=== PATIENT | female | born 1980 | race American Indian/Alaskan Native ===

== ENCOUNTER 2019-09-23 22:01 | Emergency (ER) | payer MEDICAID ==
--- NOTE | 2019-09-23 22:51 | EDM.PDOCBH ---
ED HPI GENERAL MEDICAL PROBLEM - General Chief Complaint: Drug or Alcohol Abuse Stated Complaint: MEDICAL Time Seen by Provider: 09/23/19 22:15 Source of Information: Reports: Patient History Limitations: Reports: Intoxication - History of Present Illness INITIAL COMMENTS - FREE TEXT/NARRATIVE: This is a 39-year-old with history of alcohol abuse disorder presents requesting treatment for her alcohol use disorder. She reports that she drinks approximately 1 L of alcohol a day. Her last drink was 1 to 2 hours before ED arrival. She is questioning whether she needs to be admitted because alcohol withdrawal is life-threatening. She is not interested in going to detox. She also reports occasional opioid use. She denies any illicit drug use otherwise. She denies any suicidal ideation. She has been in treatment before for drug and alcohol abuse. She has no acute medical concerns. - Related Data Allergies Allergy/AdvReac Type Severity Reaction Status Date / Time iron Allergy Cannot Verified 09/23/19 22:31 Remember ED ROS GENERAL - Review of Systems Review Of Systems: See Below Constitutional: Reports: No Symptoms HEENT: Reports: No Symptoms Respiratory: Reports: No Symptoms Cardiovascular: Reports: No Symptoms Endocrine: Reports: No Symptoms GI/Abdominal: Reports: No Symptoms : Reports: No Symptoms Musculoskeletal: Reports: No Symptoms Skin: Reports: No Symptoms Neurological: Reports: No Symptoms Psychiatric: Denies: Suicidal Ideation Hematologic/Lymphatic: Reports: No Symptoms Immunologic: Reports: No Symptoms ED EXAM, BEHAVIORAL HEALTH - Physical Exam Exam: See Below Exam Limited By: Intoxication General Appearance: Alert, No Apparent Distress Ears: Normal External Exam Nose: Normal Inspection Throat/Mouth: Normal Inspection Head: Atraumatic Neck: Normal Inspection Respiratory/Chest: No Respiratory Distress Cardiovascular: Regular Rate, Rhythm GI/Abdominal: No Distention Back Exam: Normal Inspection Extremities: Normal Inspection Neurological: Alert, Oriented x 3 Psychiatric: Alert Skin Exam: Warm, Dry COURSE, BEHAVIORAL HEALTH COMP - Course Discharge vs Psych Eval/Treatment:: 39-year-old who presents with concerns of alcohol intoxication. She is concerned she may go into life-threatening withdrawal. On exam she has normal vitals. She endorses alcohol use and clinically does appear mildly intoxicated. She has no signs of alcohol withdrawal. We offered to attempt to facilitate treatment at [facility] detox facility. Unfortunately the patient became verbally upset with this plan of treatment, she does not like the idea of being in a treatment facility, and left AMA prior to any attempt at formulating an alternate plan. 09/23/19 22:51 Departure - Departure Time of Disposition: 22:52 Disposition: Against Medical Advice 07 Clinical Impression: Alcohol abuse - Discharge Information Referrals: PCP,None [Primary Care Provider] -
== END 2019-09-23 22:40 | disposition left against medical advice (07) ==
LOC: JP.ED 22:01
DX: F10.10 Alcohol abuse, uncomplicated (principal); Z91.09 Other allergy status, other than to drugs and biological substances
CPT/HCPCS: 99284

== ENCOUNTER 2019-09-24 12:13 | Emergency (ER) | payer MEDICAID ==
[2019-09-24] MEDS ORDERED: LORazepam 2 MG/ML SDV IM ONE (13:08)
--- NOTE | 2019-09-24 13:11 | EDM.PDOCBH ---
ED HPI GENERAL MEDICAL PROBLEM - General Chief Complaint: Drug or Alcohol Abuse Stated Complaint: EVAL Time Seen by Provider: 09/24/19 13:09 Source of Information: Reports: Patient, RN Notes Reviewed History Limitations: Reports: Intoxication - History of Present Illness INITIAL COMMENTS - FREE TEXT/NARRATIVE: 39-year-old female presents emergency department today alcohol intoxication requesting clearance for detox, denies any suicidal ideation or hallucinations, is emotionally upset due to trauma in the past - Related Data Allergies Allergy/AdvReac Type Severity Reaction Status Date / Time iron Allergy Cannot Verified 09/24/19 12:43 Remember Home Meds: Home Meds Amphetamine/Dextroamphetamine [Adderall] 5 - 10 mg PO BID 09/23/19 [History] Cyclobenzaprine [Flexeril] 10 mg PO BEDTIME 09/23/19 [History] Gabapentin [Neurontin] 400 mg PO TID 09/23/19 [History] Naltrexone 50 mg PO DAILY 09/23/19 [History] SUMAtriptan 100 mg PO ASDIRECTED PRN 09/23/19 [History] Sertraline HCl 100 mg PO DAILY 09/23/19 [History] Spironolactone [Aldactone] 100 mg PO DAILY 09/23/19 [History] buPROPion [Wellbutrin SR] 150 mg PO DAILY 09/23/19 [History] hydrOXYzine HCL [Hydroxyzine HCl] 10 mg PO ASDIRECTED PRN 09/23/19 [History] traZODone 200 mg PO BEDTIME 09/23/19 [History] Past Medical History HEENT History: Reports: Allergic Rhinitis Cardiovascular History: Reports: Other (See Below) Other Cardiovascular History: POTS Respiratory History: Reports: Asthma Gastrointestinal History: Reports: Celiac Disease, GERD Genitourinary History: Reports: UTI, Recurrent OFFICE COORDINATOR History: Reports: Other (See Below) Other OFFICE COORDINATOR History: abnormal pap but never followed up on it Musculoskeletal History: Reports: Back Pain, Chronic Neurological History: Reports: Migraines, Other (See Below) Other Neuro History: insomnia Psychiatric History: Reports: ADHD, Addiction, Anxiety, Depression, Eating Disorders, PTSD, Other (See Below) Other Psychiatric History: personality disorder Endocrine/Metabolic History: Reports: Hyperthyroidism Hematologic History: Reports: Anemia Dermatologic History: Reports: Other (See Below) Other Dermatologic History: acne - Infectious Disease History Infectious Disease History: Reports: Chicken Pox, MRSA - Past Surgical History Respiratory Surgical History: Reports: None GI Surgical History: Reports: Cholecystectomy Social & Family History - Tobacco Use Smoking Status *Q: Former Smoker Used Tobacco, but Quit: Yes Month/Year Tobacco Last Used: 09/2019 - Caffeine Use Caffeine Use: Reports: Coffee Other Caffeine Use: 12 cups per day - Alcohol Use Days Per Week of Alcohol Use: 7 Number of Drinks Per Day: 10 Total Drinks Per Week: 70 - Recreational Drug Use Recreational Drug Use: No ED ROS GENERAL - Review of Systems Review Of Systems: See Below Constitutional: Reports: No Symptoms HEENT: Reports: No Symptoms Respiratory: Reports: No Symptoms Cardiovascular: Reports: No Symptoms GI/Abdominal: Reports: No Symptoms : Reports: No Symptoms Neurological: Reports: No Symptoms Psychiatric: Reports: Anxiety. Denies: Hallucinations, Suicidal Ideation ED EXAM, BEHAVIORAL HEALTH - Physical Exam Exam: See Below Exam Limited By: Intoxication General Appearance: Alert, No Apparent Distress Respiratory/Chest: No Respiratory Distress, Lungs Clear, Normal Breath Sounds, No Accessory Muscle Use, Chest Non-Tender Cardiovascular: Regular Rate, Rhythm, No Murmur GI/Abdominal: Soft, Non-Tender Psychiatric: Alert, Oriented, Restless, Agitated. No: Auditory Hallucinations, Visual Hallucinations, Pressured Speech COURSE, BEHAVIORAL HEALTH COMP - Course Vital Signs: Last Vital Signs Temp 98.0 F 09/24/19 12:42 Pulse 131 H 09/24/19 12:42 Resp 16 09/24/19 12:42 BP 105/90 09/24/19 12:42 Pulse Ox 98 09/24/19 12:42 Orders, Labs, Meds: Laboratory Tests 09/24/19 09/24/19 09/24/19 Range/Units 12:31 12:32 12:32 WBC 12.6 H (4.5-11.0) K/uL RBC 4.82 (3.30-5.50) M/uL Hgb 14.5 (12.0-15.0) g/dL Hct 42.6 (36.0-48.0) % MCV 88 (80-98) fL MCH 30 (27-31) pg MCHC 34 (32-36) % Plt Count 314 (150-400) K/uL Neut % (Auto) 69 H (36-66) % Lymph % (Auto) 26 (24-44) % [place] % (Auto) 5 (2-6) % Eos % (Auto) 0 L (2-4) % Baso % (Auto) 0 (0-1) % Sodium (140-148) mmol/L Potassium (3.6-5.2) mmol/L Chloride (100-108) mmol/L Carbon Dioxide (21-32) mmol/L Anion Gap (5.0-14.0) mmol/L BUN (7-18) mg/dL Creatinine (0.6-1.0) mg/dL Est Cr Clr Drug Dosing mL/min Estimated GFR (MDRD) (>60) Glucose (74-106) mg/dL Calcium (8.5-10.1) mg/dL Total Bilirubin (0.2-1.0) mg/dL AST (15-37) U/L ALT (12-78) U/L Alkaline Phosphatase (46-116) U/L Total Protein (6.4-8.2) g/dL Albumin (3.4-5.0) g/dL Globulin (2.3-3.5) g/dL Albumin/Globulin Ratio (1.2-2.2) Urine Color Yellow (YELLOW) Urine Appearance Clear (CLEAR) Urine pH 6.0 (5.0-8.0) Ur Specific [place] 1.020 (1.008-1.030) Urine Protein Negative (NEGATIVE) mg/dL Urine Glucose (UA) Negative (NEGATIVE) mg/dL Urine Ketones Trace H (NEGATIVE) mg/dL Urine Occult Blood Moderate H (NEGATIVE) Urine Nitrite Negative (NEGATIVE) Urine Bilirubin Negative (NEGATIVE) Urine Urobilinogen 0.2 (0.2-1.0) EU/dL Ur Leukocyte Esterase Negative (NEGATIVE) Urine RBC Not seen (0-5) Urine WBC Not seen (0-5) Ur Epithelial Cells Moderate Amorphous Sediment Not seen Urine Bacteria Rare Urine Mucus Not seen Urine Opiates Screen Negative (NEGATIVE) Ur Oxycodone Screen Negative (NEGATIVE) Urine Methadone Screen Negative (NEGATIVE) Ur Propoxyphene Screen Negative (NEGATIVE) Ur Barbiturates Screen Negative (NEGATIVE) Ur Tricyclics Screen Presumptive positive H (NEGATIVE) Ur Phencyclidine Scrn Negative (NEGATIVE) Ur Amphetamine Screen Negative (NEGATIVE) U Methamphetamines Scrn Negative (NEGATIVE) Urine MDMA Screen Negative (NEGATIVE) U Benzodiazepines Scrn Negative (NEGATIVE) U Cocaine Metab Screen Negative (NEGATIVE) U Marijuana (THC) Screen Negative (NEGATIVE) Ethyl Alcohol mg/dL 09/24/19 09/24/19 Range/Units 12:51 12:51 WBC (4.5-11.0) K/uL RBC (3.30-5.50) M/uL Hgb (12.0-15.0) g/dL Hct (36.0-48.0) % MCV (80-98) fL MCH (27-31) pg MCHC (32-36) % Plt Count (150-400) K/uL Neut % (Auto) (36-66) % Lymph % (Auto) (24-44) % [place] % (Auto) (2-6) % Eos % (Auto) (2-4) % Baso % (Auto) (0-1) % Sodium 138 L (140-148) mmol/L Potassium 3.4 L (3.6-5.2) mmol/L Chloride 102 (100-108) mmol/L Carbon Dioxide 24 (21-32) mmol/L Anion Gap 15.4 H (5.0-14.0) mmol/L BUN 14 (7-18) mg/dL Creatinine 0.7 (0.6-1.0) mg/dL Est Cr Clr Drug Dosing 111.00 mL/min Estimated GFR (MDRD) > 60 (>60) Glucose 203 H (74-106) mg/dL Calcium 7.5 L (8.5-10.1) mg/dL Total Bilirubin 0.2 (0.2-1.0) mg/dL AST 35 (15-37) U/L ALT 51 (12-78) U/L Alkaline Phosphatase 79 (46-116) U/L Total Protein 7.4 (6.4-8.2) g/dL Albumin 3.6 (3.4-5.0) g/dL Globulin 3.8 H (2.3-3.5) g/dL Albumin/Globulin Ratio 1.0 L (1.2-2.2) Urine Color (YELLOW) Urine Appearance (CLEAR) Urine pH (5.0-8.0) Ur Specific [place] (1.008-1.030) Urine Protein (NEGATIVE) mg/dL Urine Glucose (UA) (NEGATIVE) mg/dL Urine Ketones (NEGATIVE) mg/dL Urine Occult Blood (NEGATIVE) Urine Nitrite (NEGATIVE) Urine Bilirubin (NEGATIVE) Urine Urobilinogen (0.2-1.0) EU/dL Ur Leukocyte Esterase (NEGATIVE) Urine RBC (0-5) Urine WBC (0-5) Ur Epithelial Cells Amorphous Sediment Urine Bacteria Urine Mucus Urine Opiates Screen (NEGATIVE) Ur Oxycodone Screen (NEGATIVE) Urine Methadone Screen (NEGATIVE) Ur Propoxyphene Screen (NEGATIVE) Ur Barbiturates Screen (NEGATIVE) Ur Tricyclics Screen (NEGATIVE) Ur Phencyclidine Scrn (NEGATIVE) Ur Amphetamine Screen (NEGATIVE) U Methamphetamines Scrn (NEGATIVE) Urine MDMA Screen (NEGATIVE) U Benzodiazepines Scrn (NEGATIVE) U Cocaine Metab Screen (NEGATIVE) U Marijuana (THC) Screen (NEGATIVE) Ethyl Alcohol 369 mg/dL Medications Discontinued Medications Generic Name Dose Route Start Last Admin Trade Name Freq PRN Reason Stop Dose Admin Lorazepam 1 mg 09/24/19 13:08 09/24/19 13:15 Ativan IM 09/24/19 13:09 1 mg ONETIME ONE Administration Departure - Departure Time of Disposition: 14:03 Disposition: DC/Tfer to Inpt Rehab Fac 62 Condition: Poor Clinical Impression: Alcohol abuse - Discharge Information Referrals: Sunitha Mitchell DO [Primary Care Provider] - Forms: ED Department Discharge Additional Instructions: Please report to [facility] for treatment further treatment and detoxification of alcohol Sepsis Event Note - Evaluation Sepsis Screening Result: No Definite Risk - Focused Exam Vital Signs: Vital Signs Temp Pulse Resp BP Pulse Ox 09/24/19 12:42 98.0 F 131 H 16 105/90 98 09/24/19 12:34 98.0 F 131 H 16 105/90 98 Date Exam was Performed: 09/24/19 Time Exam was Performed: 14:03 - Assessment/Plan Plan: Assessment Alcohol intoxication Plan Transported to [facility] detoxification facility
== END 2019-09-24 15:45 ==
LOC: JP.ED 12:13
DX: F10.129 Alcohol abuse with intoxication, unspecified (principal); Y90.8 Blood alcohol level of 240 mg/100 ml or more; J45.909 Unspecified asthma, uncomplicated; F41.9 Anxiety disorder, unspecified; F32.9 Major depressive disorder, single episode, unspecified; Z87.891 Personal history of nicotine dependence; Z88.8 Allergy status to other drugs, medicaments and biological substances; Z79.899 Other long term (current) drug therapy
CPT/HCPCS: 36415; 80053; 80305-QW; 80307; 81001; 85025; 96372; 99284; J2060

== ENCOUNTER 2019-09-24 21:30 | Emergency (ER) | payer MEDICAID ==
--- NOTE | 2019-09-24 21:59 | EDM.PDOCBH ---
ED HPI GENERAL MEDICAL PROBLEM - General Chief Complaint: Drug or Alcohol Abuse Stated Complaint: MEDICAL CLEARANCE Time Seen by Provider: 09/24/19 21:35 Source of Information: Reports: Patient, Police History Limitations: Reports: No Limitations - History of Present Illness INITIAL COMMENTS - FREE TEXT/NARRATIVE: 39-year-old female was at [place] at [facility], received 10 mg of Valium about 1/ 2-hour prior to leaving. She had not been there the required 12 hours, and she insisted on leaving so the medical auditor sent her in for medical clearance to be discharged. She is very stable, her only complaint is that she has chronic sores in her nose. She is also asking for a "benzodiazepine". Associated Symptoms: Reports: Other - Related Data Allergies Allergy/AdvReac Type Severity Reaction Status Date / Time iron Allergy Cannot Verified 09/24/19 22:13 Remember Home Meds: Home Meds Amphetamine/Dextroamphetamine [Adderall] 5 - 10 mg PO BID 09/23/19 [History] Cyclobenzaprine [Flexeril] 10 mg PO BEDTIME 09/23/19 [History] Gabapentin [Neurontin] 400 mg PO TID 09/23/19 [History] Naltrexone 50 mg PO DAILY 09/23/19 [History] SUMAtriptan 100 mg PO ASDIRECTED PRN 09/23/19 [History] Sertraline HCl 100 mg PO DAILY 09/23/19 [History] Spironolactone [Aldactone] 100 mg PO DAILY 09/23/19 [History] buPROPion [Wellbutrin SR] 150 mg PO DAILY 09/23/19 [History] hydrOXYzine HCL [Hydroxyzine HCl] 10 mg PO ASDIRECTED PRN 09/23/19 [History] traZODone 200 mg PO BEDTIME 09/23/19 [History] Past Medical History HEENT History: Reports: Allergic Rhinitis Cardiovascular History: Reports: Other (See Below) Other Cardiovascular History: POTS Respiratory History: Reports: Asthma Gastrointestinal History: Reports: Celiac Disease, GERD Genitourinary History: Reports: UTI, Recurrent PAINTER BARREL History: Reports: Other (See Below) Other PAINTER BARREL History: abnormal pap but never followed up on it Musculoskeletal History: Reports: Back Pain, Chronic Neurological History: Reports: Migraines, Other (See Below) Other Neuro History: insomnia Psychiatric History: Reports: ADHD, Addiction, Anxiety, Depression, Eating Disorders, PTSD, Other (See Below) Other Psychiatric History: personality disorder Endocrine/Metabolic History: Reports: Hyperthyroidism Hematologic History: Reports: Anemia Dermatologic History: Reports: Other (See Below) Other Dermatologic History: acne - Infectious Disease History Infectious Disease History: Reports: Chicken Pox, MRSA - Past Surgical History Respiratory Surgical History: Reports: None GI Surgical History: Reports: Cholecystectomy Social & Family History - Caffeine Use Caffeine Use: Reports: Coffee Other Caffeine Use: 12 cups per day ED ROS GENERAL - Review of Systems Review Of Systems: See Below Constitutional: Denies: Fever, Chills HEENT: Reports: Other (Chronic persistent sores in her nose) Respiratory: Denies: Shortness of Breath GI/Abdominal: Denies: Nausea, Vomiting Skin: Reports: Other (Inflammatory lesions in her nose, history of a "MRSA carrier") ED EXAM, BEHAVIORAL HEALTH - Physical Exam Exam: See Below Exam Limited By: No Limitations General Appearance: Alert, No Apparent Distress, Other (Still looks slightly intoxicated but speech is clear) Eye Exam: Bilateral Eye: EOMI (No jaundice) Nose: Other (Patient does have small reddened inflamed lesions in the nares especially the left side, they are tender to palpation) Head: Atraumatic Respiratory/Chest: No Respiratory Distress, Lungs Clear Cardiovascular: Regular Rate, Rhythm COURSE, BEHAVIORAL HEALTH COMP - Course Vital Signs: Last Vital Signs Temp 98.1 F 09/24/19 22:15 Pulse 111 H 09/24/19 22:15 Resp 17 09/24/19 22:15 BP 145/90 H 09/24/19 22:15 Pulse Ox 98 09/24/19 22:15 Re-Assessment/Re-Exam: Patient will be treated with Bactrim DS twice daily for the next 7 to 10 days and can recheck with her primary provider if not improving. Strongly encouraged her to continue her regular medications and avoid further alcohol ingestion. Departure - Departure Time of Disposition: 22:15 Disposition: Home, Self-Care 01 Clinical Impression: Alcohol abuse, Sore in nose - Discharge Information Instructions: Health Care-Associated MRSA Information Referrals: Sunitha Mitchell DO [Primary Care Provider] - Forms: ED Department Discharge Care Plan Goals: Take antibiotic twice a day for at least 7 days sitter rechecking with your regular doctor if not improving satisfactorily. Continue your other medications as prescribed and avoid any further alcohol intake. Sepsis Event Note - Focused Exam Vital Signs: Vital Signs Temp Pulse Resp BP Pulse Ox 09/24/19 22:15 98.1 F 111 H 17 145/90 H 98 09/24/19 21:46 98.1 F 111 H 17 145/90 H 98 Date Exam was Performed: 09/24/19 Time Exam was Performed: 22:21
== END 2019-09-24 22:23 | disposition home or self-care (01) ==
LOC: JP.ED 21:30
DX: F10.10 Alcohol abuse, uncomplicated (principal); J34.89 Other specified disorders of nose and nasal sinuses; F41.9 Anxiety disorder, unspecified; F32.9 Major depressive disorder, single episode, unspecified; Z88.8 Allergy status to other drugs, medicaments and biological substances; Z79.899 Other long term (current) drug therapy
CPT/HCPCS: 99283

== ENCOUNTER 2019-09-25 12:33 | Emergency (ER) | payer MEDICAID ==
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
== END 2019-09-25 14:22 | disposition home or self-care (01) ==
LOC: JP.ED 12:33
DX: K62.5 Hemorrhage of anus and rectum (principal); F41.9 Anxiety disorder, unspecified; F32.9 Major depressive disorder, single episode, unspecified; F90.9 Attention-deficit hyperactivity disorder, unspecified type; E05.90 Thyrotoxicosis, unspecified without thyrotoxic crisis or storm; Z87.891 Personal history of nicotine dependence; Z90.49 Acquired absence of other specified parts of digestive tract; Z88.8 Allergy status to other drugs, medicaments and biological substances; Z79.899 Other long term (current) drug therapy
CPT/HCPCS: 36415; 80307; 85025; 99283

== ENCOUNTER 2019-09-25 16:00 | Emergency (ER) | payer MEDICAID ==
[2019-09-25] MEDS ORDERED: LORazepam 2 MG/ML SDV IM ONE (16:28)
--- NOTE | 2019-09-25 16:34 | EDM.PDOCBH ---
<OfficerDenis - Last Filed: 09/25/19 16:29> ED HPI GENERAL MEDICAL PROBLEM - General Chief Complaint: Drug or Alcohol Abuse Stated Complaint: EVAL ALCOHOL Time Seen by Provider: 09/25/19 16:29 Source of Information: Reports: Patient, RN Notes Reviewed History Limitations: Reports: Intoxication - History of Present Illness INITIAL COMMENTS - FREE TEXT/NARRATIVE: 39-year-old female brought in by law enforcement for welfare check called in by family she has been to the emergency department this is her fourth or fifth visit in the last 24hours alcohol is the main problem. Initially had her set up to a local detox facility she left after 4-hour stay has been to the emergency department twice with varying complaints this is my second visit with her in a 12-hour. Law enforcement was called for evaluation of suicidal ideation she adamantly denies suicidal ideation says she wants to live, her problem is alcohol she wants treatment for alcohol she is willing to go to detoxification at this time. - Related Data Allergies Allergy/AdvReac Type Severity Reaction Status Date / Time iron Allergy Cannot Verified 09/25/19 17:00 Remember Home Meds: Home Meds Amphetamine/Dextroamphetamine [Adderall] 5 - 10 mg PO BID 09/23/19 [History] Cyclobenzaprine [Flexeril] 10 mg PO BEDTIME 09/23/19 [History] Gabapentin [Neurontin] 400 mg PO TID 09/23/19 [History] Naltrexone 50 mg PO DAILY 09/23/19 [History] SUMAtriptan 100 mg PO ASDIRECTED PRN 09/23/19 [History] Sertraline HCl 100 mg PO DAILY 09/23/19 [History] Spironolactone [Aldactone] 100 mg PO DAILY 09/23/19 [History] buPROPion [Wellbutrin SR] 150 mg PO DAILY 09/23/19 [History] hydrOXYzine HCL [Hydroxyzine HCl] 10 mg PO ASDIRECTED PRN 09/23/19 [History] traZODone 200 mg PO BEDTIME 09/23/19 [History] Past Medical History HEENT History: Reports: Allergic Rhinitis Cardiovascular History: Reports: Other (See Below) Other Cardiovascular History: POTS Respiratory History: Reports: Asthma Gastrointestinal History: Reports: Celiac Disease, GERD Genitourinary History: Reports: UTI, Recurrent WATERMASTER History: Reports: Other (See Below) Other WATERMASTER History: abnormal pap but never followed up on it Musculoskeletal History: Reports: Back Pain, Chronic Neurological History: Reports: Migraines, Other (See Below) Other Neuro History: insomnia Psychiatric History: Reports: ADHD, Addiction, Anxiety, Depression, Eating Disorders, PTSD, Other (See Below) Other Psychiatric History: personality disorder Endocrine/Metabolic History: Reports: Hyperthyroidism Hematologic History: Reports: Anemia Dermatologic History: Reports: Other (See Below) Other Dermatologic History: acne - Infectious Disease History Infectious Disease History: Reports: Chicken Pox, MRSA 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 - Past Surgical History Respiratory Surgical History: Reports: None GI Surgical History: Reports: Cholecystectomy Social & Family History - Caffeine Use Caffeine Use: Reports: Coffee Other Caffeine Use: 12 cups per day ED ROS GENERAL - Review of Systems Review Of Systems: Unable To Obtain Reason Not Obtained: Intoxicated ED EXAM, BEHAVIORAL HEALTH - Physical Exam Exam: See Below Exam Limited By: Intoxication General Appearance: Alert, Anxious, Other (Tearful) Respiratory/Chest: No Respiratory Distress, Lungs Clear Cardiovascular: Regular Rate, Rhythm, No Murmur Psychiatric: Alert, Oriented, Tearful, Agitated, Poor Eye Contact. No: Homicidal Thoughts, Suicidal Plan, Suicidal Thoughts, Auditory Hallucinations COURSE, BEHAVIORAL HEALTH COMP - Course Vital Signs: Last Vital Signs Temp 98.2 F 09/25/19 16:58 Pulse 105 H 09/25/19 16:58 Resp 16 09/25/19 16:58 BP 131/86 09/25/19 16:58 Pulse Ox 98 09/25/19 16:58 Orders, Labs, Meds: Medications Discontinued Medications Generic Name Dose Route Start Last Admin Trade Name Meghan PRN Reason Stop Dose Admin Lorazepam 2 mg 09/25/19 16:28 Ativan IM 09/25/19 16:29 ONETIME ONE Departure - Departure Disposition: DC/Tfer to Other 70 Clinical Impression: Alcohol abuse - Discharge Information Instructions: Alcohol Use Disorder Referrals: Sunitha Mitchell DO [Primary Care Provider] - Forms: ED Department Discharge Care Plan Goals: Go to [facility] for detox, follow their recommendations and comply with treatment to get better. Sepsis Event Note - Focused Exam Vital Signs: Vital Signs Temp Pulse Resp BP Pulse Ox 09/25/19 16:58 98.2 F 105 H 16 131/86 98 09/25/19 16:33 98.2 F 105 H 16 131/86 98 <Sebas Eng D - Last Filed: 09/25/19 20:44> COURSE, BEHAVIORAL HEALTH COMP - Course Re-Assessment/Re-Exam: Patient care accepted from Officer pending disposition. Patient is agreeable to returning to detox, [facility] graciously accepted her back and I placed her on a 72-hour hold to keep her from leaving. 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 This is more because the patient will likely insist on taking them, not that they are necessary. Departure - Departure Time of Disposition: 20:36 Sepsis Event Note - Focused Exam Date Exam was Performed: 09/25/19 Time Exam was Performed: 20:42
== END 2019-09-25 20:37 | disposition other institution (70) ==
LOC: JP.ED 16:00
DX: F10.129 Alcohol abuse with intoxication, unspecified (principal); J45.909 Unspecified asthma, uncomplicated; F41.9 Anxiety disorder, unspecified; F32.9 Major depressive disorder, single episode, unspecified; K21.9 Gastro-esophageal reflux disease without esophagitis; E05.90 Thyrotoxicosis, unspecified without thyrotoxic crisis or storm; Z79.899 Other long term (current) drug therapy; Z91.09 Other allergy status, other than to drugs and biological substances
CPT/HCPCS: 99284

== ENCOUNTER 2019-09-25 21:40 | Emergency (ER) | payer MEDICAID ==
--- NOTE | 2019-09-25 21:46 | EDM.PDOCBH ---
ED HPI GENERAL MEDICAL PROBLEM - General Stated Complaint: MEDICAL VIA [facility] Time Seen by Provider: 09/25/19 21:40 Source of Information: Reports: Patient, EMS, Other (Detox center staff) - History of Present Illness INITIAL COMMENTS - FREE TEXT/NARRATIVE: 39-year-old female who we just tried to get to [facility] detox for the second time in 24 hours, was calm and comfortable on discharge, cooperative in route to [facility], but as soon as she walked through the door she started complaining of abdominal pain, screaming, refused to have her vitals taken and was asking for a doctor. EMS said it was like she "flipped a switch". When they arrived to transport her back to the emergency room she was again resting quietly on her bed. She is obviously manipulating the system with her behavior. Now that she is back to the emergency room she is asking please help me I want to go to detox. She needs no medical treatment and will be discharged. - Related Data Allergies Allergy/AdvReac Type Severity Reaction Status Date / Time iron Allergy Cannot Verified 09/25/19 21:52 Remember Home Meds: Home Meds Amphetamine/Dextroamphetamine [Adderall] 5 - 10 mg PO BID 09/23/19 [History] Cyclobenzaprine [Flexeril] 10 mg PO BEDTIME 09/23/19 [History] Gabapentin [Neurontin] 400 mg PO TID 09/23/19 [History] Naltrexone 50 mg PO DAILY 09/23/19 [History] SUMAtriptan 100 mg PO ASDIRECTED PRN 09/23/19 [History] Sertraline HCl 100 mg PO DAILY 09/23/19 [History] Spironolactone [Aldactone] 100 mg PO DAILY 09/23/19 [History] buPROPion [Wellbutrin SR] 150 mg PO DAILY 09/23/19 [History] hydrOXYzine HCL [Hydroxyzine HCl] 10 mg PO ASDIRECTED PRN 09/23/19 [History] traZODone 200 mg PO BEDTIME 09/23/19 [History] Past Medical History HEENT History: Reports: Allergic Rhinitis Cardiovascular History: Reports: Other (See Below) Other Cardiovascular History: POTS Respiratory History: Reports: Asthma Gastrointestinal History: Reports: Celiac Disease, GERD Genitourinary History: Reports: UTI, Recurrent FACILITY EXAMINER History: Reports: Other (See Below) Other FACILITY EXAMINER History: abnormal pap but never followed up on it Musculoskeletal History: Reports: Back Pain, Chronic Neurological History: Reports: Migraines, Other (See Below) Other Neuro History: insomnia Psychiatric History: Reports: ADHD, Addiction, Anxiety, Depression, Eating Disorders, PTSD, Other (See Below) Other Psychiatric History: personality disorder Endocrine/Metabolic History: Reports: Hyperthyroidism Hematologic History: Reports: Anemia Dermatologic History: Reports: Other (See Below) Other Dermatologic History: acne - Infectious Disease History Infectious Disease History: Reports: Chicken Pox, MRSA 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 - Past Surgical History GI Surgical History: Reports: Cholecystectomy Social & Family History - Caffeine Use Caffeine Use: Reports: Coffee Other Caffeine Use: 12 cups per day ED ROS GENERAL - Review of Systems Review Of Systems: See Below Constitutional: Denies: Fever Respiratory: Denies: Shortness of Breath GI/Abdominal: Reports: Abdominal Pain (Which apparently has resolved) ED EXAM, BEHAVIORAL HEALTH - Physical Exam Exam: See Below Exam Limited By: No Limitations General Appearance: Alert, No Apparent Distress Head: Atraumatic Respiratory/Chest: No Respiratory Distress Neurological: Alert Psychiatric: Flat Affect COURSE, BEHAVIORAL HEALTH COMP - Course Vital Signs: Last Vital Signs Temp 96.9 F 09/25/19 21:43 Pulse 82 09/25/19 21:43 Resp 14 09/25/19 21:43 BP 121/84 09/25/19 21:43 Pulse Ox 97 09/25/19 21:43 Re-Assessment/Re-Exam: Explained to the patient that no further medical care is needed, she is to resume her regular medications and avoid alcohol. She was initially acting very sleepy and sedated and was unable to cooperate until a certain community relations police lieutenant went into the room when she sat up and opened her eyes because she likes this certain community relations police lieutenant and said "I asked for you". Departure - Departure Time of Disposition: 22:23 Disposition: Home, Self-Care 01 Clinical Impression: Antisocial behaviour, Alcohol abuse - Discharge Information Instructions: Alcohol Use Disorder Referrals: PCP,None [Primary Care Provider] - Forms: ED Department Discharge Care Plan Goals: Resume your regular medications, it is strongly recommended to avoid alcohol in the future. Sepsis Event Note - Focused Exam Vital Signs: Vital Signs Temp Pulse Resp BP Pulse Ox 09/25/19 21:43 96.9 F 82 14 121/84 97 Date Exam was Performed: 09/25/19 Time Exam was Performed: 23:16
== END 2019-09-25 22:24 | disposition home or self-care (01) ==
LOC: JP.ED 21:40
CPT/HCPCS: 99283

== ENCOUNTER 2019-09-26 00:57 | Emergency (ER) | payer MEDICAID ==
--- NOTE | 2019-09-26 01:10 | EDM.PDOC ---
ED HPI GENERAL MEDICAL PROBLEM - General Chief Complaint: ENT Problem Stated Complaint: LOST HEARING IN RT EAR Time Seen by Provider: 09/26/19 01:00 Source of Information: Reports: Patient History Limitations: Reports: No Limitations - History of Present Illness INITIAL COMMENTS - FREE TEXT/NARRATIVE: 39-year-old female who is already been in the emergency room 3 times today, returns again because she fell and bumped her head and cannot hear out of her right ear. Onset: Sudden Duration: Hour(s): (Within the last hour) Location: Reports: Other (Right ear) - Related Data Allergies Allergy/AdvReac Type Severity Reaction Status Date / Time iron Allergy Cannot Verified 09/26/19 01:07 Remember Home Meds: Home Meds Amphetamine/Dextroamphetamine [Adderall] 5 - 10 mg PO BID 09/23/19 [History] Cyclobenzaprine [Flexeril] 10 mg PO BEDTIME 09/23/19 [History] Gabapentin [Neurontin] 400 mg PO TID 09/23/19 [History] Naltrexone 50 mg PO DAILY 09/23/19 [History] SUMAtriptan 100 mg PO ASDIRECTED PRN 09/23/19 [History] Sertraline HCl 100 mg PO DAILY 09/23/19 [History] Spironolactone [Aldactone] 100 mg PO DAILY 09/23/19 [History] buPROPion [Wellbutrin SR] 150 mg PO DAILY 09/23/19 [History] hydrOXYzine HCL [Hydroxyzine HCl] 10 mg PO ASDIRECTED PRN 09/23/19 [History] traZODone 200 mg PO BEDTIME 09/23/19 [History] Past Medical History HEENT History: Reports: Allergic Rhinitis Cardiovascular History: Reports: Other (See Below) Other Cardiovascular History: POTS Respiratory History: Reports: Asthma Gastrointestinal History: Reports: Celiac Disease, GERD Genitourinary History: Reports: UTI, Recurrent MANAGER MAIL History: Reports: Other (See Below) Other MANAGER MAIL History: abnormal pap but never followed up on it Musculoskeletal History: Reports: Back Pain, Chronic Neurological History: Reports: Migraines, Other (See Below) Other Neuro History: insomnia Psychiatric History: Reports: ADHD, Addiction, Anxiety, Depression, Eating Disorders, PTSD, Other (See Below) Other Psychiatric History: personality disorder Endocrine/Metabolic History: Reports: Hyperthyroidism Hematologic History: Reports: Anemia Dermatologic History: Reports: Other (See Below) Other Dermatologic History: acne - Infectious Disease History Infectious Disease History: Reports: Chicken Pox, MRSA 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 - Past Surgical History GI Surgical History: Reports: Cholecystectomy Social & Family History - Caffeine Use Caffeine Use: Reports: Coffee Other Caffeine Use: 12 cups per day ED ROS ENT - Review of Systems Review Of Systems: See Below Constitutional: Denies: Fever Respiratory: Denies: Shortness of Breath Cardiovascular: Denies: Chest Pain GI/Abdominal: Denies: Nausea, Vomiting Neurological: Denies: Headache ED EXAM, ENT - Physical Exam Exam: See Below Exam Limited By: No Limitations General Appearance: Alert, No Apparent Distress Ears: Normal TMs Head: Atraumatic Respiratory/Chest: No Respiratory Distress Neurological: Alert, Oriented, No Motor/Sensory Deficits (No apparent neurologic deficits, walking without difficulty, speech is clear) Skin: Warm, Dry, Other (No bruises or abrasion on the scalp) Course - Vital Signs Last Recorded V/S: Last Vital Signs Temp 97.5 F 09/26/19 01:04 Pulse 99 09/26/19 01:04 Resp 16 09/26/19 01:04 BP 143/94 H 09/26/19 01:04 Pulse Ox 95 09/26/19 01:04 - Re-Assessments/Exams Free Text/Narrative Re-Assessment/Exam: 09/26/19 01:09 Explained to the patient that both her eardrums look normal, there is no perforation or fluid behind the eardrum. She then got up and left AMA without instructions Departure - Departure Time of Disposition: 01:11 Disposition: Home, Self-Care 01 Clinical Impression: Hearing loss of right ear Qualifiers: Hearing loss type: unspecified Qualified Code(s): H91.91 - Unspecified hearing loss, right ear - Discharge Information Referrals: PCP,None [Primary Care Provider] - Forms: ED Department Discharge Care Plan Goals: Patient was reassured that the exam was normal, and left without any instructions or treatment recommendations. Sepsis Event Note - Focused Exam Vital Signs: Vital Signs Temp Pulse Resp BP Pulse Ox 09/26/19 01:04 97.5 F 99 16 143/94 H 95 Date Exam was Performed: 09/26/19 Time Exam was Performed: 01:55
== END 2019-09-26 01:10 | disposition home or self-care (01) ==
LOC: JP.ED 00:57
DX: H91.91 Unspecified hearing loss, right ear (principal); J45.909 Unspecified asthma, uncomplicated; K21.9 Gastro-esophageal reflux disease without esophagitis; F41.9 Anxiety disorder, unspecified; F32.9 Major depressive disorder, single episode, unspecified; Z91.048 Other nonmedicinal substance allergy status; Z79.899 Other long term (current) drug therapy
CPT/HCPCS: 99282; 99283

== ENCOUNTER 2019-09-28 17:00 | Emergency (ER) | payer MEDICAID | END 2019-09-28 17:15 | disposition left against medical advice (07) | LOC: JP.ED 17:00 | DX: Z53.21 Procedure and treatment not carried out due to patient leaving prior to being seen by health care provider (principal) ==

== ENCOUNTER 2019-10-11 23:30 | Inpatient (IN) | payer MEDICAID ==
--- NOTE | 2019-10-11 23:42 | EDM.PDOC ---
ED HPI GENERAL MEDICAL PROBLEM - General Stated Complaint: [facility] Time Seen by Provider: 10/11/19 23:30 Source of Information: Reports: EMS History Limitations: Reports: Altered Mental Status, Physical Impairment - History of Present Illness INITIAL COMMENTS - FREE TEXT/NARRATIVE: 39-year-old female with known chronic alcohol abuse and polysubstance abuse, was in detox just a couple weekends ago. Tonight she was brought in by ambulance after overdosing on Valium, Sonata, and alcohol. I am not sure how EMS knew that she overdosed, but when they arrived she was angry and did not want to go with him. She was physically aggressive with EMS so they gave her 250 mg of IM ketamine and she arrived sedated but stable. No history was obtainable from the patient. Onset: Unknown/Unsure unable to asscess Pain Score (Numeric/FACES): 0 middle to upper back Pain Score (Numeric/FACES): 5 - Related Data Allergies Allergy/AdvReac Type Severity Reaction Status Date / Time iron Allergy Cannot Verified 09/26/19 01:07 Remember Home Meds: Home Meds Amphetamine/Dextroamphetamine [Adderall] 5 - 10 mg PO BID 09/23/19 [History] Cyclobenzaprine [Flexeril] 10 mg PO BEDTIME 09/23/19 [History] Gabapentin [Neurontin] 400 mg PO TID 09/23/19 [History] Naltrexone 50 mg PO DAILY 09/23/19 [History] SUMAtriptan 100 mg PO ASDIRECTED PRN 09/23/19 [History] Sertraline HCl 100 mg PO DAILY 09/23/19 [History] Spironolactone [Aldactone] 100 mg PO DAILY 09/23/19 [History] buPROPion [Wellbutrin SR] 150 mg PO DAILY 09/23/19 [History] hydrOXYzine HCL [Hydroxyzine HCl] 10 mg PO ASDIRECTED PRN 09/23/19 [History] traZODone 200 mg PO BEDTIME 09/23/19 [History] Sertraline HCl 100 mg PO DAILY 10/12/19 [History] Zaleplon 10 mg PO BEDTIME 10/12/19 [History] diazePAM [Valium] 2 mg PO ASDIRECTED 10/12/19 [History] Past Medical History HEENT History: Reports: Allergic Rhinitis Cardiovascular History: Reports: Other (See Below) Other Cardiovascular History: POTS Respiratory History: Reports: Asthma Gastrointestinal History: Reports: Celiac Disease, GERD Genitourinary History: Reports: UTI, Recurrent LCSW History: Reports: Other (See Below) Other LCSW History: abnormal pap but never followed up on it Musculoskeletal History: Reports: Back Pain, Chronic Neurological History: Reports: Migraines, Other (See Below) Other Neuro History: insomnia Psychiatric History: Reports: ADHD, Addiction, Anxiety, Depression, Eating Disorders, PTSD, Other (See Below) Other Psychiatric History: personality disorder Endocrine/Metabolic History: Reports: Hyperthyroidism Hematologic History: Reports: Anemia Dermatologic History: Reports: Other (See Below) Other Dermatologic History: acne - Infectious Disease History Infectious Disease History: Reports: Chicken Pox, MRSA 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 - Past Surgical History GI Surgical History: Reports: Cholecystectomy Social & Family History - Caffeine Use Caffeine Use: Reports: Coffee Other Caffeine Use: 12 cups per day ED ROS GENERAL - Review of Systems Review Of Systems: See Below Reason Not Obtained: Patient was medically sedated, no review of systems obtainable ED EXAM, GENERAL - Physical Exam Exam: See Below Exam Limited By: No Limitations General Appearance: Alert, No Apparent Distress, Obtunded Eye Exam: Bilateral Eye: Normal Inspection (No disconjugate gaze or nystagmus) Head: Atraumatic Respiratory/Chest: No Respiratory Distress, Lungs Clear Cardiovascular: Regular Rate, Rhythm, Tachycardia GI/Abdominal: Soft, Non-Tender Extremities: Normal Inspection, Other (No evidence of trauma to the extremities) Neurological: Slow to Respond Skin Exam: Warm, Dry Course - Vital Signs Last Recorded V/S: Last Vital Signs Temp 97.3 F 10/12/19 02:52 Pulse 85 10/12/19 06:00 Resp 16 10/12/19 06:00 BP 119/74 10/12/19 06:00 Pulse Ox 97 10/12/19 06:00 - Orders/Labs/Meds Orders: Active Orders 24 hr Category Date Time Status Patient Status [ADT] Routine ADT 10/12/19 00:01 Active Cardiac Monitoring [RC] .As Directed Care 10/12/19 00:02 Active Oxygen Therapy [RC] PRN Care 10/12/19 00:01 Active Up With Assistance [RC] ASDIRECTED Care 10/12/19 00:00 Active VTE/DVT Education [RC] Per Unit Routine Care 10/12/19 00:01 Active Vital Signs [RC] Q1H Care 10/12/19 00:01 Active Behavioral Health Evaluation [CONS] Routine Cons 10/12/19 00:10 Active Regular Diet [DIET] Diet 10/12/19 Breakfast Active Ondansetron [Zofran] Med 10/12/19 00:00 Active 4 mg IV Q4H PRN SUMAtriptan Med 10/12/19 00:10 Pending 100 mg PO ASDIRECTED PRN Sertraline [Zoloft] Med 10/12/19 09:00 Active 100 mg PO DAILY Sodium Chloride 0.9% [Normal Saline] 1,000 ml Med 10/12/19 00:00 Active IV ASDIRECTED Spironolactone [Aldactone] Med 10/12/19 09:00 Active 100 mg PO DAILY buPROPion [Wellbutrin SR] Med 10/12/19 09:00 Active 150 mg PO DAILY Resuscitation Status Routine Resus Stat 10/12/19 00:00 Ordered Medication Orders Bupropion HCl (Wellbutrin Sr) 150 mg PO DAILY EDDIE Sodium Chloride (Normal Saline) 1,000 mls @ 125 mls/hr IV ASDIRECTED EDDIE Last Admin: 10/12/19 02:02 Dose: 125 mls/hr Ondansetron HCl (Zofran) 4 mg IV Q4H PRN PRN Reason: Nausea/Vomiting Sertraline HCl (Zoloft) 100 mg PO DAILY EDDIE Spironolactone (Aldactone) 100 mg PO DAILY EDDIE Sumatriptan Succinate (Sumatriptan) 100 mg PO ASDIRECTED PRN PRN Reason: Headache Labs: Laboratory Tests 10/11/19 10/11/19 10/11/19 Range/Units 23:40 23:40 23:40 WBC 12.7 H (4.5-11.0) K/uL RBC 4.96 (3.30-5.50) M/uL Hgb 14.8 (12.0-15.0) g/dL Hct 44.4 (36.0-48.0) % MCV 90 (80-98) fL MCH 30 (27-31) pg MCHC 33 (32-36) % Plt Count 383 (150-400) K/uL Neut % (Auto) 54 (36-66) % Lymph % (Auto) 38 (24-44) % [place] % (Auto) 6 (2-6) % Eos % (Auto) 1 L (2-4) % Baso % (Auto) 1 (0-1) % Sodium 146 (140-148) mmol/L Potassium 3.3 L (3.6-5.2) mmol/L Chloride 106 (100-108) mmol/L Carbon Dioxide 28 (21-32) mmol/L Anion Gap 15.3 H (5.0-14.0) mmol/L BUN 10 (7-18) mg/dL Creatinine 0.8 (0.6-1.0) mg/dL Est Cr Clr Drug Dosing TNP Estimated GFR (MDRD) > 60 (>60) Glucose 95 (74-106) mg/dL Calcium 8.2 L (8.5-10.1) mg/dL Total Bilirubin 0.2 (0.2-1.0) mg/dL AST 82 H D (15-37) U/L ALT 167 H (12-78) U/L Alkaline Phosphatase 96 (46-116) U/L Total Protein 7.4 (6.4-8.2) g/dL Albumin 3.8 (3.4-5.0) g/dL Globulin 3.6 H (2.3-3.5) g/dL Albumin/Globulin Ratio 1.1 L (1.2-2.2) Urine Color Yellow (YELLOW) Urine Appearance Slightly cloudy A (CLEAR) Urine pH 7.0 (5.0-8.0) Ur Specific [place] 1.020 (1.008-1.030) Urine Protein Negative (NEGATIVE) mg/dL Urine Glucose (UA) Negative (NEGATIVE) mg/dL Urine Ketones Negative (NEGATIVE) mg/dL Urine Occult Blood Trace-intact H (NEGATIVE) Urine Nitrite Negative (NEGATIVE) Urine Bilirubin Negative (NEGATIVE) Urine Urobilinogen 0.2 (0.2-1.0) EU/dL Ur Leukocyte Esterase Negative (NEGATIVE) Urine RBC 0-5 (0-5) Urine WBC 0-5 (0-5) Ur Epithelial Cells Rare Amorphous Sediment Few Urine Bacteria Not seen Urine Mucus Not seen Urine HCG, Qual Salicylates (2.0-20.0) mg/dL Urine Opiates Screen (NEGATIVE) Ur Oxycodone Screen (NEGATIVE) Urine Methadone Screen (NEGATIVE) Ur Propoxyphene Screen (NEGATIVE) Acetaminophen 0.0 L (10.0-30.0) ug/mL Ur Barbiturates Screen (NEGATIVE) Ur Tricyclics Screen (NEGATIVE) Ur Phencyclidine Scrn (NEGATIVE) Ur Amphetamine Screen (NEGATIVE) U Methamphetamines Scrn (NEGATIVE) Urine MDMA Screen (NEGATIVE) U Benzodiazepines Scrn (NEGATIVE) U Cocaine Metab Screen (NEGATIVE) U Marijuana (THC) Screen (NEGATIVE) Ethyl Alcohol mg/dL 10/11/19 10/11/19 10/11/19 Range/Units 23:40 23:40 23:40 WBC (4.5-11.0) K/uL RBC (3.30-5.50) M/uL Hgb (12.0-15.0) g/dL Hct (36.0-48.0) % MCV (80-98) fL MCH (27-31) pg MCHC (32-36) % Plt Count (150-400) K/uL Neut % (Auto) (36-66) % Lymph % (Auto) (24-44) % [place] % (Auto) (2-6) % Eos % (Auto) (2-4) % Baso % (Auto) (0-1) % Sodium (140-148) mmol/L Potassium (3.6-5.2) mmol/L Chloride (100-108) mmol/L Carbon Dioxide (21-32) mmol/L Anion Gap (5.0-14.0) mmol/L BUN (7-18) mg/dL Creatinine (0.6-1.0) mg/dL Est Cr Clr Drug Dosing Estimated GFR (MDRD) (>60) Glucose (74-106) mg/dL Calcium (8.5-10.1) mg/dL Total Bilirubin (0.2-1.0) mg/dL AST (15-37) U/L ALT (12-78) U/L Alkaline Phosphatase (46-116) U/L Total Protein (6.4-8.2) g/dL Albumin (3.4-5.0) g/dL Globulin (2.3-3.5) g/dL Albumin/Globulin Ratio (1.2-2.2) Urine Color (YELLOW) Urine Appearance (CLEAR) Urine pH (5.0-8.0) Ur Specific [place] (1.008-1.030) Urine Protein (NEGATIVE) mg/dL Urine Glucose (UA) (NEGATIVE) mg/dL Urine Ketones (NEGATIVE) mg/dL Urine Occult Blood (NEGATIVE) Urine Nitrite (NEGATIVE) Urine Bilirubin (NEGATIVE) Urine Urobilinogen (0.2-1.0) EU/dL Ur Leukocyte Esterase (NEGATIVE) Urine RBC (0-5) Urine WBC (0-5) Ur Epithelial Cells Amorphous Sediment Urine Bacteria Urine Mucus Urine HCG, Qual Negative Salicylates 2.0 (2.0-20.0) mg/dL Urine Opiates Screen (NEGATIVE) Ur Oxycodone Screen (NEGATIVE) Urine Methadone Screen (NEGATIVE) Ur Propoxyphene Screen (NEGATIVE) Acetaminophen (10.0-30.0) ug/mL Ur Barbiturates Screen (NEGATIVE) Ur Tricyclics Screen (NEGATIVE) Ur Phencyclidine Scrn (NEGATIVE) Ur Amphetamine Screen (NEGATIVE) U Methamphetamines Scrn (NEGATIVE) Urine MDMA Screen (NEGATIVE) U Benzodiazepines Scrn (NEGATIVE) U Cocaine Metab Screen (NEGATIVE) U Marijuana (THC) Screen (NEGATIVE) Ethyl Alcohol 243 mg/dL 10/11/19 Range/Units 23:40 WBC (4.5-11.0) K/uL RBC (3.30-5.50) M/uL Hgb (12.0-15.0) g/dL Hct (36.0-48.0) % MCV (80-98) fL MCH (27-31) pg MCHC (32-36) % Plt Count (150-400) K/uL Neut % (Auto) (36-66) % Lymph % (Auto) (24-44) % [place] % (Auto) (2-6) % Eos % (Auto) (2-4) % Baso % (Auto) (0-1) % Sodium (140-148) mmol/L Potassium (3.6-5.2) mmol/L Chloride (100-108) mmol/L Carbon Dioxide (21-32) mmol/L Anion Gap (5.0-14.0) mmol/L BUN (7-18) mg/dL Creatinine (0.6-1.0) mg/dL Est Cr Clr Drug Dosing Estimated GFR (MDRD) (>60) Glucose (74-106) mg/dL Calcium (8.5-10.1) mg/dL Total Bilirubin (0.2-1.0) mg/dL AST (15-37) U/L ALT (12-78) U/L Alkaline Phosphatase (46-116) U/L Total Protein (6.4-8.2) g/dL Albumin (3.4-5.0) g/dL Globulin (2.3-3.5) g/dL Albumin/Globulin Ratio (1.2-2.2) Urine Color (YELLOW) Urine Appearance (CLEAR) Urine pH (5.0-8.0) Ur Specific [place] (1.008-1.030) Urine Protein (NEGATIVE) mg/dL Urine Glucose (UA) (NEGATIVE) mg/dL Urine Ketones (NEGATIVE) mg/dL Urine Occult Blood (NEGATIVE) Urine Nitrite (NEGATIVE) Urine Bilirubin (NEGATIVE) Urine Urobilinogen (0.2-1.0) EU/dL Ur Leukocyte Esterase (NEGATIVE) Urine RBC (0-5) Urine WBC (0-5) Ur Epithelial Cells Amorphous Sediment Urine Bacteria Urine Mucus Urine HCG, Qual Salicylates (2.0-20.0) mg/dL Urine Opiates Screen Negative (NEGATIVE) Ur Oxycodone Screen Negative (NEGATIVE) Urine Methadone Screen Negative (NEGATIVE) Ur Propoxyphene Screen Negative (NEGATIVE) Acetaminophen (10.0-30.0) ug/mL Ur Barbiturates Screen Negative (NEGATIVE) Ur Tricyclics Screen Negative (NEGATIVE) Ur Phencyclidine Scrn Negative (NEGATIVE) Ur Amphetamine Screen Negative (NEGATIVE) U Methamphetamines Scrn Negative (NEGATIVE) Urine MDMA Screen Negative (NEGATIVE) U Benzodiazepines Scrn Presumptive positive H (NEGATIVE) U Cocaine Metab Screen Negative (NEGATIVE) U Marijuana (THC) Screen Negative (NEGATIVE) Ethyl Alcohol mg/dL Meds: Medications Generic Name Dose Route Start Last Admin Trade Name Freq PRN Reason Stop Dose Admin Bupropion HCl 150 mg 10/12/19 09:00 Wellbutrin Sr PO DAILY EDDIE Sodium Chloride 1,000 mls @ 125 mls/hr 10/12/19 00:00 10/12/19 02:02 Normal Saline IV 125 mls/hr ASDIRECTED EDDIE Administration Ondansetron HCl 4 mg 10/12/19 00:00 Zofran IV Q4H PRN Nausea/Vomiting Sertraline HCl 100 mg 10/12/19 09:00 Zoloft PO DAILY [facility] Spironolactone 100 mg 10/12/19 09:00 Aldactone PO DAILY [facility] Sumatriptan Succinate 100 mg 10/12/19 00:10 Sumatriptan PO ASDIRECTED PRN Headache Discontinued Medications Generic Name Dose Route Start Last Admin Trade Name Jbq PRN Reason Stop Dose Admin Sodium Chloride 1,000 mls @ 500 mls/hr 10/11/19 23:45 10/11/19 23:45 Normal Saline IV 500 mls/hr ASDIRECTED EDDIE Administration - Re-Assessments/Exams Free Text/Narrative Re-Assessment/Exam: 10/12/19 00:14 An IV was started, EKG obtained and a Loya placed. Blood was drawn for a CBC, CMP, acetaminophen, salicylates and EtOH. Urine was obtained for UA, drug screen, and . Patiently slowly became more conscious but still unable to speak without significant aphasia and was difficult to understand. Dr. Richardson was kind enough to admit the patient ICU while the drugs wear off, which was the recommendation of poison control. Departure - Departure Time of Disposition: 01:48 Disposition: Admitted As Inpatient 68 Clinical Impression: Polysubstance abuse, Intentional overdose of drug in tablet form - Discharge Information Sepsis Event Note - Focused Exam Vital Signs: Vital Signs Temp Pulse Resp BP Pulse Ox 10/12/19 00:10 94 19 115/69 95 10/11/19 23:50 116 H 18 130/87 96 10/11/19 23:30 97.1 F 125 H 21 H 147/95 H 97 Date Exam was Performed: 10/12/19 Time Exam was Performed: 06:31
[2019-10-11] MEDS ORDERED: Sodium Chloride 0.9% 1,000 ML IV SCH (23:45)
[2019-10-12] MEDS ORDERED: Sodium Chloride 0.9% 1,000 ML IV SCH
[2019-10-12] MEDS ORDERED: Ondansetron 4 MG/2 ML SDV IV PRN
--- NOTE | 2019-10-12 05:10 | HP ---
CHIEF COMPLAINT: Overdose. HISTORY OF PRESENT ILLNESS: A 39-year-old, who had been drinking and overdosed on Sonata and Valium, unknown how many she took. Apparently, she called the ambulance herself, was brought in by the ambulance for further evaluation, was evaluated by emergency room physician, was noted to be lethargic, but she was arousing. She states that she has been feeling depressed but difficult to tell there was intent or not. She had been drinking. Really not able to get really much of any other history out of her other than she does have a history of alcohol abuse apparently. MEDICATIONS: 1. Adderall 5 to 10 mg b.i.d. 2. Wellbutrin 150 mg daily. 3. Cyclobenzaprine 10 mg at bedtime. 4. Gabapentin 400 mg t.i.d. 5. Hydroxyzine 10 mg as directed p.r.n. 6. Naltrexone 50 mg daily. 7. Sertraline 100 mg daily. 8. Spironolactone 100 mg daily. 9. Sumatriptan 100 mg p.r.n. 10.Trazodone 200 mg at bedtime. ALLERGIES: IRON. SOCIAL HISTORY: Never been drinking, otherwise really unknown at this time. FAMILY HISTORY: Unknown. REVIEW OF SYSTEMS: She denies any pain. She is lethargic, but I am able to arouse her but really difficult to assess really anything else. OBJECTIVE: VITAL SIGNS: None listed yet in her chart. GENERAL: The patient is arousable but difficult to really converse with her at this time. THROAT: Pharynx is unremarkable. NECK: Supple. No significant adenopathy or masses. LUNGS: Clear. HEART: Regular without murmurs. ABDOMEN: Soft and does not appear to cause her any tenderness. No mass or organomegaly is palpated. EXTREMITIES: No edema. SKIN: Negative. LABORATORY: White count 12.7, hemoglobin 14.8, and platelets 383,000. Urinalysis was unremarkable. Urine drug screen was positive for benzodiazepines. ASSESSMENT: Alcohol abuse with a history of depression with overdose of Sonata and diazepam. I was asked to admit the patient for further evaluation and treatment. We will admit her to the intensive care unit. We will admit her under inpatient. We will transfer care to the Hospitalist Service tomorrow and consult Psychology. Ajay Richardson MD /[id number]
[2019-10-12] MEDS ORDERED: Sertraline 50 MG Tab PO SCH ×2 (09:00→21:00)
[2019-10-12] MEDS ORDERED: Spironolactone 25 MG Tab PO SCH (09:00)
[2019-10-12] MEDS ORDERED: buPROPion 150 MG Tab.SR PO SCH (09:00)
[2019-10-12] MEDS ORDERED: Benzocaine/Cetylpyridinium/Menthol Lozenge MUCMEM PRN (09:43)
--- NOTE | 2019-10-12 11:42 | PCM.DCSUM1 ---
Discharge Summary - Hospital Course Brief History: 39-year-old female with history of viral infection leading to progressive hearing loss, alcohol abuse, ADHD and anxiety with depression who presented by ambulance after reportedly taking too many sleeping pills. She was admitted for management of overdose with possible attempt at self-harm. Diagnosis: Stroke: No - Discharge Data Discharge Date: 10/12/19 Discharge Disposition: Home, Self-Care 01 Condition: Good - Referral to Home Health Primary Care Physician: Sunitha Mitchell, DO - Discharge Diagnosis/Problem(s) (1) Accidental overdose SNOMED Code(s): 37708833 ICD Code: T50.901A - POISONING BY UNSP DRUG/MEDS/BIOL SUBST, ACCIDENTAL, INIT Status: Acute Qualifiers: Encounter type: initial encounter Qualified Code(s): T50.901A - Poisoning by unspecified drugs, medicaments and biological substances, accidental ( unintentional), initial encounter (2) Alcohol abuse SNOMED Code(s): 62726325 ICD Code: F10.10 - ALCOHOL ABUSE, UNCOMPLICATED Status: Chronic - Patient Summary/Data Consults: Consultations 10/12/19 00:10 Behavioral Health Evaluation [CONS] Routine Comment: Physician Instructions: Quantity: Hospital Course: Yamilka presented to the emergency room by ambulance. She reportedly called 911 after ingesting diazepam and Sonata while drinking alcohol. She was agitated at the time of arrival of the paramedics and did receive ketamine so she was sedated at the time of presentation to the emergency room. There was some concern this may have been an attempt at self-harm though this was not stated. She had mild hypokalemia but otherwise her labs were not very impressive. She did start to wake up slowly in the emergency room. Admission for observation was recommended because of the ingestion as well as the alcohol. Overnight following admission there were no acute issues. Her vital signs remained stable. Morning after admission she is alert and interactive. I did talk to the patient with her mother present. She reported that the ingestion of several sleeping pills along with the alcohol was an attempt to get some sleep. She is on high dose prednisone for a viral infection in her ear leading to hearing loss. Since she has been on the high-dose prednisone she has not slept hardly at all and was very frustrated and tired. She reported that the ingestion was simply to try to get some sleep. She does not report any suicidal ideations. She does admit a lot of stressful things are happening but reports that she has good support at home. She feels safe and comfortable going home at this time. She does not have any thoughts of self- harm. I did encourage her if she does develop thoughts of self-harm to call 911. She will be following up with her primary care provider. She has 3 days left of her high-dose prednisone and hopefully after that she will be able to get some sleep and all of this will pass. I did not provide any new prescriptions at the time of discharge. She was strongly encouraged to avoid mixing sedating medications to help with sleep and alcohol. I did warn her that this combination can be deadly. - Patient Instructions Diet: Regular Diet as Tolerated Activity: As Tolerated Showering/Bathing: May Shower Notify Provider of: Fever, Increased Pain Other/Special Instructions: 1. It is very dangerous to mix alcohol and sedating sleep medications. This can lead to a decreased respiratory rate and potentially respiratory failure and . It is likely that you will continue to experience trouble sleeping until your prednisone dose decreases in a few days. Please do not mix alcohol and sleep medications. 2. Follow up with your primary care provider to discuss safe medications to help with sleep if you continue to experience difficulties. - Discharge Plan *PRESCRIPTION DRUG MONITORING PROGRAM REVIEWED*: Not Applicable *COPY OF PRESCRIPTION DRUG MONITORING REPORT IN PATIENT OLENA: Not Applicable Home Medications: Home Meds Amphetamine/Dextroamphetamine [Adderall] 5 - 10 mg PO BID 09/23/19 [History] Cyclobenzaprine [Flexeril] 10 mg PO BEDTIME 09/23/19 [History] Gabapentin [Neurontin] 400 mg PO TID 09/23/19 [History] Naltrexone 50 mg PO DAILY 09/23/19 [History] SUMAtriptan 100 mg PO ASDIRECTED PRN 09/23/19 [History] Sertraline HCl 100 mg PO DAILY 09/23/19 [History] Spironolactone [Aldactone] 100 mg PO DAILY 09/23/19 [History] buPROPion [Wellbutrin SR] 150 mg PO DAILY 09/23/19 [History] hydrOXYzine HCL [Hydroxyzine HCl] 10 mg PO ASDIRECTED PRN 09/23/19 [History] traZODone 200 mg PO BEDTIME 09/23/19 [History] Sertraline HCl 100 mg PO DAILY 10/12/19 [History] Zaleplon 10 mg PO BEDTIME 10/12/19 [History] diazePAM [Valium] 2 mg PO ASDIRECTED 10/12/19 [History] Oxygen Therapy Mode: Room Air Patient Handouts: Insomnia Referrals: Sunitha Mitchell DO [Primary Care Provider] - 10/14/19 2:20 pm (Check in under your My Health Account. Click on your appointment and follow directions) - Discharge Summary/Plan Comment DC Time >30 min.: No - Patient Data Vitals - Most Recent: Last Vital Signs Temp 36.6 C 10/12/19 11:00 Pulse 92 10/12/19 11:00 Resp 13 10/12/19 11:00 BP 129/75 10/12/19 11:00 Pulse Ox 97 10/12/19 09:00 Weight - Most Recent: 74.843 kg I&O - Last 24 hours: Intake & Output 10/11/19 10/12/19 10/12/19 22:59 06:59 14:59 Intake Total 1000 Balance 1000 Lab Results - Last 24 hrs: Laboratory Results - last 24 hr 10/11/19 10/11/19 10/11/19 Range/Units 23:40 23:40 23:40 WBC 12.7 H (4.5-11.0) K/uL RBC 4.96 (3.30-5.50) M/uL Hgb 14.8 (12.0-15.0) g/dL Hct 44.4 (36.0-48.0) % MCV 90 (80-98) fL MCH 30 (27-31) pg MCHC 33 (32-36) % Plt Count 383 (150-400) K/uL Neut % (Auto) 54 (36-66) % Lymph % (Auto) 38 (24-44) % [place] % (Auto) 6 (2-6) % Eos % (Auto) 1 L (2-4) % Baso % (Auto) 1 (0-1) % Sodium 146 (140-148) mmol/L Potassium 3.3 L (3.6-5.2) mmol/L Chloride 106 (100-108) mmol/L Carbon Dioxide 28 (21-32) mmol/L Anion Gap 15.3 H (5.0-14.0) mmol/L BUN 10 (7-18) mg/dL Creatinine 0.8 (0.6-1.0) mg/dL Est Cr Clr Drug Dosing TNP Estimated GFR (MDRD) > 60 (>60) Glucose 95 (74-106) mg/dL Calcium 8.2 L (8.5-10.1) mg/dL Total Bilirubin 0.2 (0.2-1.0) mg/dL AST 82 H D (15-37) U/L ALT 167 H (12-78) U/L Alkaline Phosphatase 96 (46-116) U/L Total Protein 7.4 (6.4-8.2) g/dL Albumin 3.8 (3.4-5.0) g/dL Globulin 3.6 H (2.3-3.5) g/dL Albumin/Globulin Ratio 1.1 L (1.2-2.2) Urine Color Yellow (YELLOW) Urine Appearance Slightly cloudy A (CLEAR) Urine pH 7.0 (5.0-8.0) Ur Specific [place] 1.020 (1.008-1.030) Urine Protein Negative (NEGATIVE) mg/dL Urine Glucose (UA) Negative (NEGATIVE) mg/dL Urine Ketones Negative (NEGATIVE) mg/dL Urine Occult Blood Trace-intact H (NEGATIVE) Urine Nitrite Negative (NEGATIVE) Urine Bilirubin Negative (NEGATIVE) Urine Urobilinogen 0.2 (0.2-1.0) EU/dL Ur Leukocyte Esterase Negative (NEGATIVE) Urine RBC 0-5 (0-5) Urine WBC 0-5 (0-5) Ur Epithelial Cells Rare Amorphous Sediment Few Urine Bacteria Not seen Urine Mucus Not seen Urine HCG, Qual Salicylates (2.0-20.0) mg/dL Urine Opiates Screen (NEGATIVE) Ur Oxycodone Screen (NEGATIVE) Urine Methadone Screen (NEGATIVE) Ur Propoxyphene Screen (NEGATIVE) Acetaminophen 0.0 L (10.0-30.0) ug/mL Ur Barbiturates Screen (NEGATIVE) Ur Tricyclics Screen (NEGATIVE) Ur Phencyclidine Scrn (NEGATIVE) Ur Amphetamine Screen (NEGATIVE) U Methamphetamines Scrn (NEGATIVE) Urine MDMA Screen (NEGATIVE) U Benzodiazepines Scrn (NEGATIVE) U Cocaine Metab Screen (NEGATIVE) U Marijuana (THC) Screen (NEGATIVE) Ethyl Alcohol mg/dL 10/11/19 10/11/19 10/11/19 Range/Units 23:40 23:40 23:40 WBC (4.5-11.0) K/uL RBC (3.30-5.50) M/uL Hgb (12.0-15.0) g/dL Hct (36.0-48.0) % MCV (80-98) fL MCH (27-31) pg MCHC (32-36) % Plt Count (150-400) K/uL Neut % (Auto) (36-66) % Lymph % (Auto) (24-44) % [place] % (Auto) (2-6) % Eos % (Auto) (2-4) % Baso % (Auto) (0-1) % Sodium (140-148) mmol/L Potassium (3.6-5.2) mmol/L Chloride (100-108) mmol/L Carbon Dioxide (21-32) mmol/L Anion Gap (5.0-14.0) mmol/L BUN (7-18) mg/dL Creatinine (0.6-1.0) mg/dL Est Cr Clr Drug Dosing Estimated GFR (MDRD) (>60) Glucose (74-106) mg/dL Calcium (8.5-10.1) mg/dL Total Bilirubin (0.2-1.0) mg/dL AST (15-37) U/L ALT (12-78) U/L Alkaline Phosphatase (46-116) U/L Total Protein (6.4-8.2) g/dL Albumin (3.4-5.0) g/dL Globulin (2.3-3.5) g/dL Albumin/Globulin Ratio (1.2-2.2) Urine Color (YELLOW) Urine Appearance (CLEAR) Urine pH (5.0-8.0) Ur Specific [place] (1.008-1.030) Urine Protein (NEGATIVE) mg/dL Urine Glucose (UA) (NEGATIVE) mg/dL Urine Ketones (NEGATIVE) mg/dL Urine Occult Blood (NEGATIVE) Urine Nitrite (NEGATIVE) Urine Bilirubin (NEGATIVE) Urine Urobilinogen (0.2-1.0) EU/dL Ur Leukocyte Esterase (NEGATIVE) Urine RBC (0-5) Urine WBC (0-5) Ur Epithelial Cells Amorphous Sediment Urine Bacteria Urine Mucus Urine HCG, Qual Negative Salicylates 2.0 (2.0-20.0) mg/dL Urine Opiates Screen (NEGATIVE) Ur Oxycodone Screen (NEGATIVE) Urine Methadone Screen (NEGATIVE) Ur Propoxyphene Screen (NEGATIVE) Acetaminophen (10.0-30.0) ug/mL Ur Barbiturates Screen (NEGATIVE) Ur Tricyclics Screen (NEGATIVE) Ur Phencyclidine Scrn (NEGATIVE) Ur Amphetamine Screen (NEGATIVE) U Methamphetamines Scrn (NEGATIVE) Urine MDMA Screen (NEGATIVE) U Benzodiazepines Scrn (NEGATIVE) U Cocaine Metab Screen (NEGATIVE) U Marijuana (THC) Screen (NEGATIVE) Ethyl Alcohol 243 mg/dL 10/11/19 Range/Units 23:40 WBC (4.5-11.0) K/uL RBC (3.30-5.50) M/uL Hgb (12.0-15.0) g/dL Hct (36.0-48.0) % MCV (80-98) fL MCH (27-31) pg MCHC (32-36) % Plt Count (150-400) K/uL Neut % (Auto) (36-66) % Lymph % (Auto) (24-44) % [place] % (Auto) (2-6) % Eos % (Auto) (2-4) % Baso % (Auto) (0-1) % Sodium (140-148) mmol/L Potassium (3.6-5.2) mmol/L Chloride (100-108) mmol/L Carbon Dioxide (21-32) mmol/L Anion Gap (5.0-14.0) mmol/L BUN (7-18) mg/dL Creatinine (0.6-1.0) mg/dL Est Cr Clr Drug Dosing Estimated GFR (MDRD) (>60) Glucose (74-106) mg/dL Calcium (8.5-10.1) mg/dL Total Bilirubin (0.2-1.0) mg/dL AST (15-37) U/L ALT (12-78) U/L Alkaline Phosphatase (46-116) U/L Total Protein (6.4-8.2) g/dL Albumin (3.4-5.0) g/dL Globulin (2.3-3.5) g/dL Albumin/Globulin Ratio (1.2-2.2) Urine Color (YELLOW) Urine Appearance (CLEAR) Urine pH (5.0-8.0) Ur Specific [place] (1.008-1.030) Urine Protein (NEGATIVE) mg/dL Urine Glucose (UA) (NEGATIVE) mg/dL Urine Ketones (NEGATIVE) mg/dL Urine Occult Blood (NEGATIVE) Urine Nitrite (NEGATIVE) Urine Bilirubin (NEGATIVE) Urine Urobilinogen (0.2-1.0) EU/dL Ur Leukocyte Esterase (NEGATIVE) Urine RBC (0-5) Urine WBC (0-5) Ur Epithelial Cells Amorphous Sediment Urine Bacteria Urine Mucus Urine HCG, Qual Salicylates (2.0-20.0) mg/dL Urine Opiates Screen Negative (NEGATIVE) Ur Oxycodone Screen Negative (NEGATIVE) Urine Methadone Screen Negative (NEGATIVE) Ur Propoxyphene Screen Negative (NEGATIVE) Acetaminophen (10.0-30.0) ug/mL Ur Barbiturates Screen Negative (NEGATIVE) Ur Tricyclics Screen Negative (NEGATIVE) Ur Phencyclidine Scrn Negative (NEGATIVE) Ur Amphetamine Screen Negative (NEGATIVE) U Methamphetamines Scrn Negative (NEGATIVE) Urine MDMA Screen Negative (NEGATIVE) U Benzodiazepines Scrn Presumptive positive H (NEGATIVE) U Cocaine Metab Screen Negative (NEGATIVE) U Marijuana (THC) Screen Negative (NEGATIVE) Ethyl Alcohol mg/dL Med Orders - Current: Current Medications Benzocaine/Menthol (Cepacol Sore Throat) 1 lozenge MUCMEM Q2H PRN PRN Reason: Sore Throat Last Admin: 10/12/19 10:24 Dose: 1 pack Bupropion HCl (Wellbutrin Sr) 150 mg PO DAILY [facility] Last Admin: 10/12/19 10:23 Dose: 150 mg Ondansetron HCl (Zofran) 4 mg IV Q4H PRN PRN Reason: Nausea/Vomiting Sertraline HCl (Zoloft) 100 mg PO BEDTIME [facility] Spironolactone (Aldactone) 100 mg PO DAILY [facility] Last Admin: 10/12/19 10:25 Dose: Not Given Sumatriptan Succinate (Sumatriptan) 100 mg PO ASDIRECTED PRN PRN Reason: Headache Discontinued Medications Sodium Chloride (Normal Saline) 1,000 mls @ 500 mls/hr IV ASDIRECTED [facility] Last Admin: 10/11/19 23:45 Dose: 500 mls/hr Sodium Chloride (Normal Saline) 1,000 mls @ 125 mls/hr IV ASDIRECTED [facility] Last Admin: 10/12/19 02:02 Dose: 125 mls/hr Sertraline HCl (Zoloft) 100 mg PO DAILY [facility] Last Admin: 10/12/19 10:25 Dose: Not Given - Exam Quality Assessment: Denies: Supplemental Oxygen General: Reports: Alert, Oriented, Cooperative, No Acute Distress Lungs: Reports: Normal Respiratory Effort Cardiovascular: Reports: Regular Rate, Regular Rhythm GI/Abdominal Exam: Soft, No Distention Extremities: No Pedal Edema Psy/Mental Status: Reports: Alert, Normal Affect
== END 2019-10-12 12:45 | disposition home or self-care (01) | DRG 918 ==
LOC: JP.ED 23:30 → JP.ICU 10-12 00:12
PROVIDERS: ADMIT Family Medicine; ATTEND Internal Medicine
DX: T42.4X1A Poisoning by benzodiazepines, accidental (unintentional), initial encounter (principal); T42.6X1A Poisoning by other antiepileptic and sedative-hypnotic drugs, accidental (unintentional), initial encounter; F10.10 Alcohol abuse, uncomplicated; H91.90 Unspecified hearing loss, unspecified ear; F90.9 Attention-deficit hyperactivity disorder, unspecified type; F41.9 Anxiety disorder, unspecified; F32.9 Major depressive disorder, single episode, unspecified; E87.6 Hypokalemia; J45.909 Unspecified asthma, uncomplicated; K90.0 Celiac disease; K21.9 Gastro-esophageal reflux disease without esophagitis; G89.29 Other chronic pain; M54.9 Dorsalgia, unspecified; G43.909 Migraine, unspecified, not intractable, without status migrainosus; F43.10 Post-traumatic stress disorder, unspecified; E05.90 Thyrotoxicosis, unspecified without thyrotoxic crisis or storm; D64.9 Anemia, unspecified; F60.9 Personality disorder, unspecified; Z79.899 Other long term (current) drug therapy; Z91.09 Other allergy status, other than to drugs and biological substances; Z87.440 Personal history of urinary (tract) infections; Z90.49 Acquired absence of other specified parts of digestive tract; Z86.19 Personal history of other infectious and parasitic diseases
CPT/HCPCS: 36415; 80053; 80305-QW; 80307; 81001; 81025; 85025; 99284; 99285; A9270-GY; J7030

== ENCOUNTER 2020-01-31 21:14 | Inpatient (IN) | payer MEDICAID ==
[2020-01-31] MEDS ORDERED: Sodium Chloride 0.9% 10 ML Syringe FLUSH PRN ×2 (21:15→23:40)
[2020-01-31] MEDS ORDERED: Sodium Chloride 0.9% 1,000 ML IV SCH (21:15)
[2020-01-31] MEDS ORDERED: diphenhydrAMINE 50 MG/ML SDV IVPUSH ONE (21:16)
[2020-01-31] MEDS ORDERED: Haloperidol Lactate 5 MG/ML SDV IVPUSH ONE (21:16)
[2020-01-31] MEDS ORDERED: LORazepam 2 MG/ML SDV IVPUSH ONE (21:16)
[2020-01-31] MEDS ORDERED: propofoL 100 ML IV SCH (21:40)
[2020-01-31] MEDS ORDERED: propofoL 100 ML ONE (21:40)
[2020-01-31] MEDS ORDERED: Etomidate 2 MG/ML 10 ML SDV IVPUSH ONE (22:32)
[2020-01-31] MEDS ORDERED: Propofol 200 MG/20 ML SDV IVPUSH ONE (22:32)
--- NOTE | 2020-01-31 22:39 | EDM.PDOC ---
ED HPI GENERAL MEDICAL PROBLEM - General Chief Complaint: Drug or Alcohol Abuse Stated Complaint: MEDICAL [facility] Time Seen by Provider: 01/31/20 22:30 Source of Information: Reports: EMS, Old Records, Police, RN Notes Reviewed History Limitations: Reports: Altered Mental Status, Physical Impairment - History of Present Illness INITIAL COMMENTS - FREE TEXT/NARRATIVE: 39-year-old female brought in by EMS services for intentional overdose, she has consumed large amounts of alcohol this evening vodka taking unknown amount of substances possibly 15 tablets of 5 mg diazepam as well as unknown amount of gabapentin. Initially was found by law enforcement to be unresponsive there was an empty large bottle of vodka by her bed as well as several tablets around her bed. By the time EMS arrived she was arousable and directable when she was brought to the emergency department GCS was 12 however within about 20minutes she deteriorated rapidly GCS of 4 elected to proceed with airway protective measures Treatments [employer]OP[employer]: Reports: See EMS Report - Related Data Allergies Allergy/AdvReac Type Severity Reaction Status Date / Time iron Allergy Cannot Verified 01/31/20 22:12 Remember Home Meds: Home Meds Amphetamine/Dextroamphetamine [Adderall] 5 - 10 mg PO BID 09/23/19 [History] Cyclobenzaprine [Flexeril] 10 mg PO BEDTIME 09/23/19 [History] Gabapentin [Neurontin] 600 mg PO TID 09/23/19 [History] Naltrexone 50 mg PO DAILY 09/23/19 [History] SUMAtriptan 100 mg PO ASDIRECTED PRN 09/23/19 [History] Sertraline HCl 100 mg PO DAILY 09/23/19 [History] Spironolactone [Aldactone] 100 mg PO DAILY 09/23/19 [History] buPROPion [Wellbutrin SR] 150 mg PO DAILY 09/23/19 [History] hydrOXYzine HCL [Hydroxyzine HCl] 10 mg PO ASDIRECTED PRN 09/23/19 [History] traZODone 200 mg PO BEDTIME 09/23/19 [History] Sertraline HCl 100 mg PO DAILY 10/12/19 [History] Zaleplon 10 mg PO BEDTIME 10/12/19 [History] diazePAM [Valium] 5 mg PO ASDIRECTED 10/12/19 [History] ARIPiprazole [Abilify] 2 mg PO DAILY 01/31/20 [History] Past Medical History HEENT History: Reports: Allergic Rhinitis Cardiovascular History: Reports: Other (See Below) Other Cardiovascular History: POTS Respiratory History: Reports: Asthma Gastrointestinal History: Reports: Celiac Disease, GERD Genitourinary History: Reports: UTI, Recurrent PSYCHOLOGY ASSISTANT History: Reports: Other (See Below) Other PSYCHOLOGY ASSISTANT History: abnormal pap but never followed up on it Musculoskeletal History: Reports: Back Pain, Chronic Neurological History: Reports: Migraines, Other (See Below) Other Neuro History: insomnia Psychiatric History: Reports: ADHD, Addiction, Anxiety, Depression, Eating Disorders, PTSD, Other (See Below) Other Psychiatric History: personality disorder Endocrine/Metabolic History: Reports: Hyperthyroidism Hematologic History: Reports: Anemia Dermatologic History: Reports: Other (See Below) Other Dermatologic History: acne - Infectious Disease History Infectious Disease History: Reports: Chicken Pox, MRSA 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 - Past Surgical History GI Surgical History: Reports: Cholecystectomy Social & Family History - Tobacco Use Smoking Status *Q: Current Every Day Smoker Years of Tobacco use: 20 Packs/Tins Daily: 0.5 - Caffeine Use Caffeine Use: Reports: None Other Caffeine Use: 12 cups per day Caffeine Use Comment: unable to assess due to pt condition - Alcohol Use Date of Last Drink: 01/31/20 - Recreational Drug Use Recreational Drug Use: Yes Recreational Drug Type: Reports: Marijuana/Hashish ED ROS GENERAL - Review of Systems Review Of Systems: Unable To Obtain Reason Not Obtained: Intubated - Physical Exam Exam: See Below Exam Limited By: Respiratory Distress (GCS of 4) General Appearance: Other ( GCS of 4) Eye Exam: Right Eye: Other (Pupils dilated to 6 mm extremely sluggish) Head Exam: Atraumatic, Normocephalic Neck: Normal Inspection, Supple, Non-Tender, Full Range of Motion Respiratory/Chest: No Respiratory Distress, Lungs Clear, Normal Breath Sounds, No Accessory Muscle Use, Chest Non-Tender Cardiovascular: No Murmur, Tachycardia GI/Abdominal: Soft, Non-Tender ED Add Procedures - Additional/Other Procedure(s) Procedure(s) (Free Text): Database Development Project Manager(s):Denis Officer culture media laboratory assistant Jennyfer Moore NP Indication: Pending respiratory failure GCS of 4 requiring airway protection secondary to benzodiazepine overdose Consent: None emergent Pre-airway Assessment: History: Known history of alcohol abuse and dependence Oral Aperture: 3 fingers Thyromental Distance (sniffing position): 3 fingers Hyroid the thyroid distance: 2 fingers Mallampati Airway Class: unable to assess Other factors pertinent to difficult airway: not found Pre-oxygenation: The patient was pre-oxygenated for 5 min with 100% oxygen using nasal cannula. The head of bed was at 0 degrees. COVID precautions were in place Position, Pretreatment, Induction, and Paralysis: After pre-oxygenation the patient was placed in the supine sniffing position. The following medications were administered intravenously: Etomidate 20 mg Protection: Sellick's maneuver was not performed. Bag-mask with filter in place ventilation was easy. Placement and Proof: Indirect laryngoscopy was performed with a glide scope GVL 4. After etomidate was pushed proceeded with intubation the glide scope was used #4 blade 7.5 mm ET tube balloon was tested prior glide scope stylette was used small amount of lubrication at the end of the glide scope stylette, with a small amount of pressure vocal cords were easily identified direct visualization was appreciated as the ET tube passed through the vocal cords until 21 cm was reached at which time the stylette was removed bite-block was placed, this was one attempt Tracheal placement of the tube was confirmed by auscultation and colorimetric change. The total number of attempts at laryngoscopy (direct and indirect) was 1. The tube was secured at 21 cm at the teeth/gums. CXR for tube placement is pending. Complications: None apparent Course - Orders/Labs/Meds Orders: Active Orders 24 hr Category Date Time Status Peripheral IV Care [RC] . DIRECTED Care 01/31/20 21:15 Active DRUG SCREEN, URINE [URCHEM] Stat Lab 01/31/20 22:32 Ordered UA W/MICROSCOPIC [URIN] Urgent Lab 01/31/20 22:31 Ordered Sodium Chloride 0.9% [Normal Saline] 1,000 ml Med 01/31/20 21:15 Active IV ASDIRECTED Sodium Chloride 0.9% [Saline Flush] Med 01/31/20 21:15 Active 10 ml FLUSH ASDIRECTED PRN Peripheral IV Insertion Adult [OM.PC] Urgent Oth 01/31/20 21:15 Ordered Medication Orders Sodium Chloride (Normal Saline) 1,000 mls @ 999 mls/hr IV ASDIRECTED EDDIE Sodium Chloride (Saline Flush) 10 ml FLUSH ASDIRECTED PRN PRN Reason: Keep Vein Open Labs: Laboratory Tests 01/31/20 01/31/20 01/31/20 Range/Units 21:15 21:15 21:15 WBC 11.9 H (4.5-11.0) K/uL RBC 4.66 (3.30-5.50) M/uL Hgb 14.2 (12.0-15.0) g/dL Hct 42.7 (36.0-48.0) % MCV 92 (80-98) fL MCH 31 (27-31) pg MCHC 33 (32-36) % Plt Count 324 (150-400) K/uL Neut % (Auto) 40 (36-66) % Lymph % (Auto) 50 H (24-44) % [place] % (Auto) 9 H (2-6) % Eos % (Auto) 1 L (2-4) % Baso % (Auto) 0 (0-1) % Sodium 146 (140-148) mmol/L Potassium 3.9 (3.6-5.2) mmol/L Chloride 107 (100-108) mmol/L Carbon Dioxide 28 (21-32) mmol/L Anion Gap 11.1 (5.0-14.0) mmol/L BUN 10 (7-18) mg/dL Creatinine 0.7 (0.6-1.0) mg/dL Est Cr Clr Drug Dosing TNP Estimated GFR (MDRD) > 60 (>60) Glucose 109 H (74-106) mg/dL Calcium 8.7 (8.5-10.1) mg/dL Total Bilirubin 0.1 L (0.2-1.0) mg/dL AST 33 (15-37) U/L ALT 38 D (12-78) U/L Alkaline Phosphatase 80 (46-116) U/L Total Protein 7.5 (6.4-8.2) g/dL Albumin 3.8 (3.4-5.0) g/dL Globulin 3.7 H (2.3-3.5) g/dL Albumin/Globulin Ratio 1.0 L (1.2-2.2) Salicylates 1.6 L (2.0-20.0) mg/dL Acetaminophen 0.0 L (10.0-30.0) ug/mL Ethyl Alcohol mg/dL 07/26/20 Range/Units 21:15 WBC (4.5-11.0) K/uL RBC (3.30-5.50) M/uL Hgb (12.0-15.0) g/dL Hct (36.0-48.0) % MCV (80-98) fL MCH (27-31) pg MCHC (32-36) % Plt Count (150-400) K/uL Neut % (Auto) (36-66) % Lymph % (Auto) (24-44) % [place] % (Auto) (2-6) % Eos % (Auto) (2-4) % Baso % (Auto) (0-1) % Sodium (140-148) mmol/L Potassium (3.6-5.2) mmol/L Chloride (100-108) mmol/L Carbon Dioxide (21-32) mmol/L Anion Gap (5.0-14.0) mmol/L BUN (7-18) mg/dL Creatinine (0.6-1.0) mg/dL Est Cr Clr Drug Dosing Estimated GFR (MDRD) (>60) Glucose (74-106) mg/dL Calcium (8.5-10.1) mg/dL Total Bilirubin (0.2-1.0) mg/dL AST (15-37) U/L ALT (12-78) U/L Alkaline Phosphatase (46-116) U/L Total Protein (6.4-8.2) g/dL Albumin (3.4-5.0) g/dL Globulin (2.3-3.5) g/dL Albumin/Globulin Ratio (1.2-2.2) Salicylates (2.0-20.0) mg/dL Acetaminophen (10.0-30.0) ug/mL Ethyl Alcohol 350 mg/dL Meds: Medications Generic Name Dose Route Start Last Admin Trade Name Freq PRN Reason Stop Dose Admin Sodium Chloride 1,000 mls @ 999 mls/hr 01/31/20 21:15 Normal Saline IV ASDIRECTED EDDIE Sodium Chloride 10 ml 01/31/20 21:15 Saline Flush FLUSH ASDIRECTED PRN Keep Vein Open Discontinued Medications Generic Name Dose Route Start Last Admin Trade Name Freq PRN Reason Stop Dose Admin Diphenhydramine HCl 50 mg 01/31/20 21:16 Benadryl IVPUSH 01/31/20 21:17 ONETIME ONE Etomidate 20 mg 01/31/20 22:32 Amidate IVPUSH 01/31/20 22:33 ONETIME ONE Haloperidol Lactate 5 mg 01/31/20 21:16 Haldol IVPUSH 01/31/20 21:17 ONETIME ONE Propofol Confirm 01/31/20 21:40 Diprivan 100 Ml Administered 01/31/20 21:41 Dose 100 mls @ as directed .ROUTE .STK-MED ONE Lorazepam 2 mg 01/31/20 21:16 Ativan IVPUSH 01/31/20 21:17 ONETIME ONE Propofol 50 mg 01/31/20 22:32 Diprivan 20 Ml IVPUSH 01/31/20 22:33 ONETIME ONE Departure - Departure Time of Disposition: 22:41 Disposition: Admitted As Inpatient 68 Condition: Fair Clinical Impression: Antisocial behaviour, Alcohol abuse, Respiratory depression, Intubation of airway performed without difficulty Intentional benzodiazepine overdose Qualifiers: Encounter type: initial encounter Qualified Code(s): T42.4X2A - Poisoning by benzodiazepines, intentional self-harm, initial encounter - Discharge Information Referrals: PCP,None [Primary Care Provider] - - My Orders Last 24 Hours: My Active Orders 01/31/20 21:15 Peripheral IV Care [RC] . DIRECTED Sodium Chloride 0.9% [Normal Saline] 1,000 ml IV ASDIRECTED Sodium Chloride 0.9% [Saline Flush] 10 ml FLUSH ASDIRECTED PRN Peripheral IV Insertion Adult [OM.PC] Urgent 01/31/20 22:31 UA W/MICROSCOPIC [URIN] Urgent 01/31/20 22:32 DRUG SCREEN, URINE [URCHEM] Stat - Assessment/Plan Last 24 Hours: My Active Orders 01/31/20 21:15 Peripheral IV Care [RC] . DIRECTED Sodium Chloride 0.9% [Normal Saline] 1,000 ml IV ASDIRECTED Sodium Chloride 0.9% [Saline Flush] 10 ml FLUSH ASDIRECTED PRN Peripheral IV Insertion Adult [OM.PC] Urgent 01/31/20 22:31 UA W/MICROSCOPIC [URIN] Urgent 01/31/20 22:32 DRUG SCREEN, URINE [URCHEM] Stat Plan: Assessment Acuity = acute Site and laterality = respiratory failure secondary to intentional drug overdose alcohol and benzodiazepines plus unknown substances Etiology = recent loss of brother in the family is currently suicidal Manifestations = none Location of injury = Home Lab values = alcohol is at 350, CBC and BMP unremarkable salicylates negative acetaminophen negative drug screen is pending Plan Call discussed case with hospitalist at [phone] he currently agreed to come and evaluate the patient emergency department for admission This note was dictated using [employer] voice recognition software please call with any questions on syntax or grammar.
[2020-01-31] MEDS: Sodium Chloride 0.9% 1,000 ML IV SCH (22:50)
[2020-01-31] MEDS ORDERED: Ondansetron 4 MG/2 ML SDV IV PRN (23:40)
[2020-01-31] MEDS ORDERED: Albuterol 0.083% 2.5 MG/3 ML Neb Soln NEB PRN (23:40)
--- NOTE | 2020-01-31 23:45 | PCM.HP.2 ---
H&P History of Present Illness - General Date of Service: 01/31/20 Admit Problem/Dx: Admission Diagnosis/Problem Admission Diagnosis/Problem Drug overdose - suicide Source of Information: Family, Provider, RN Notes Reviewed. No: Patient History Limitations: Reports: Altered Mental Status, Intoxication - History of Present Illness Initial Comments - Free Text/Narative: Ms. Ibarra is a 39-year-old woman who was admitted through the emergency department with respiratory compromise requiring intubation mechanical ventilation secondary to alcohol intoxication and intentional drug overdose. She does have a prior history of suicide attempts and overdose. She has been under increased stress recently because of the of her brother. She was found this evening minimally responsive with a large empty bottle of vodka by her and apparent intentional drug overdose with diazepam and gabapentin. When she arrived in the emergency department she was noted to have some sedation but a documented [place] Coma Scale of 12. In a short period of time she became less responsive and had a [place] Coma Scale of 4. Decision was made to proceed with intubation for respiratory support and airway protection. She was intubated by Dr. Warner and has been transferred to the intensive care unit for further management until medically stable. She has been placed on a 72-hour h old by law enforcement. She is unable to provide meaningful history concerning recent symptoms or events or review of systems because of current status sedated and intubated state. - Related Data Allergies/Adverse Reactions: Allergies Allergy/AdvReac Type Severity Reaction Status Date / Time iron Allergy Cannot Verified 01/31/20 22:12 Remember Home Medications: Home Meds Amphetamine/Dextroamphetamine [Adderall] 5 - 10 mg PO BID 09/23/19 [History] Cyclobenzaprine [Flexeril] 10 mg PO BEDTIME 09/23/19 [History] Gabapentin [Neurontin] 600 mg PO TID 09/23/19 [History] Naltrexone 50 mg PO DAILY 09/23/19 [History] SUMAtriptan 100 mg PO ASDIRECTED PRN 09/23/19 [History] Sertraline HCl 100 mg PO DAILY 09/23/19 [History] Spironolactone [Aldactone] 100 mg PO DAILY 09/23/19 [History] buPROPion [Wellbutrin SR] 150 mg PO DAILY 09/23/19 [History] hydrOXYzine HCL [Hydroxyzine HCl] 10 mg PO ASDIRECTED PRN 09/23/19 [History] traZODone 200 mg PO BEDTIME 09/23/19 [History] Sertraline HCl 100 mg PO DAILY 10/12/19 [History] Zaleplon 10 mg PO BEDTIME 10/12/19 [History] diazePAM [Valium] 5 mg PO ASDIRECTED 10/12/19 [History] ARIPiprazole [Abilify] 2 mg PO DAILY 01/31/20 [History] Past Medical History HEENT History: Reports: Allergic Rhinitis Cardiovascular History: Reports: Other (See Below) Other Cardiovascular History: POTS Respiratory History: Reports: Asthma Gastrointestinal History: Reports: Celiac Disease, GERD Genitourinary History: Reports: UTI, Recurrent [employer] History: Reports: Other (See Below) Other OB/BYN History: abnormal pap but never followed up on it Musculoskeletal History: Reports: Back Pain, Chronic Neurological History: Reports: Migraines, Other (See Below) Other Neuro History: insomnia Psychiatric History: Reports: ADHD, Addiction, Anxiety, Depression, Eating Disorders, PTSD, Other (See Below) Other Psychiatric History: personality disorder Endocrine/Metabolic History: Reports: Hyperthyroidism Hematologic History: Reports: Anemia Dermatologic History: Reports: Other (See Below) Other Dermatologic History: acne - Infectious Disease History Infectious Disease History: Reports: Chicken Pox, MRSA 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 - Past Surgical History GI Surgical History: Reports: Cholecystectomy Social & Family History - Tobacco Use Smoking Status *Q: Current Every Day Smoker Years of Tobacco use: 20 Packs/Tins Daily: 0.5 - Caffeine Use Caffeine Use: Reports: None Other Caffeine Use: 12 cups per day Caffeine Use Comment: unable to assess due to pt condition - Alcohol Use Date of Last Drink: 01/31/20 - Recreational Drug Use Recreational Drug Use: Yes Recreational Drug Type: Reports: Marijuana/Hashish H&P Review of Systems - Review of Systems: Review Of Systems: See Below General: Reports: ROS unobtainable (Patient is obtunded and intubated) Exam - Exam Exam: See Below - Vital Signs Weight: 180 lb - Exam Quality Assessment: Supplemental Oxygen (Ventilator), Urinary Catheter, DVT Prophylaxis General: Sedated, Obtunded HEENT: Conjunctiva Clear, Hearing Intact, Mucosa Moist & [place], Normal Nasal Septum, Posterior Pharynx Clear, Pupils Equal Neck: Supple, Trachea Midline, +2 Carotid Pulse wo Bruit Lungs: Clear to Auscultation, Normal Respiratory Effort Cardiovascular: Regular Rate, Regular Rhythm, Normal S1, Normal S2. No: Systolic Murmur, Diastolic Murmur GI/Abdominal Exam: Soft, Non-Tender, No Organomegaly, No Distention Extremities: Non-Tender, No Pedal Edema Skin: Warm, Dry, Intact Neurological: Other (Unable to cooperate with detailed neurologic exam) - Patient Data Lab Results Last 24 hrs: Laboratory Results - last 24 hr 01/31/20 01/31/20 01/31/20 Range/Units 21:15 21:15 21:15 WBC 11.9 H (4.5-11.0) K/uL RBC 4.66 (3.30-5.50) M/uL Hgb 14.2 (12.0-15.0) g/dL Hct 42.7 (36.0-48.0) % MCV 92 (80-98) fL MCH 31 (27-31) pg MCHC 33 (32-36) % Plt Count 324 (150-400) K/uL Neut % (Auto) 40 (36-66) % Lymph % (Auto) 50 H (24-44) % [place] % (Auto) 9 H (2-6) % Eos % (Auto) 1 L (2-4) % Baso % (Auto) 0 (0-1) % Sodium 146 (140-148) mmol/L Potassium 3.9 (3.6-5.2) mmol/L Chloride 107 (100-108) mmol/L Carbon Dioxide 28 (21-32) mmol/L Anion Gap 11.1 (5.0-14.0) mmol/L BUN 10 (7-18) mg/dL Creatinine 0.7 (0.6-1.0) mg/dL Est Cr Clr Drug Dosing TNP Estimated GFR (MDRD) > 60 (>60) Glucose 109 H (74-106) mg/dL Calcium 8.7 (8.5-10.1) mg/dL Total Bilirubin 0.1 L (0.2-1.0) mg/dL AST 33 (15-37) U/L ALT 38 D (12-78) U/L Alkaline Phosphatase 80 (46-116) U/L Total Protein 7.5 (6.4-8.2) g/dL Albumin 3.8 (3.4-5.0) g/dL Globulin 3.7 H (2.3-3.5) g/dL Albumin/Globulin Ratio 1.0 L (1.2-2.2) Salicylates 1.6 L (2.0-20.0) mg/dL Acetaminophen 0.0 L (10.0-30.0) ug/mL Ethyl Alcohol mg/dL 01/31/20 Range/Units 21:15 WBC (4.5-11.0) K/uL RBC (3.30-5.50) M/uL Hgb (12.0-15.0) g/dL Hct (36.0-48.0) % MCV (80-98) fL MCH (27-31) pg MCHC (32-36) % Plt Count (150-400) K/uL Neut % (Auto) (36-66) % Lymph % (Auto) (24-44) % [place] % (Auto) (2-6) % Eos % (Auto) (2-4) % Baso % (Auto) (0-1) % Sodium (140-148) mmol/L Potassium (3.6-5.2) mmol/L Chloride (100-108) mmol/L Carbon Dioxide (21-32) mmol/L Anion Gap (5.0-14.0) mmol/L BUN (7-18) mg/dL Creatinine (0.6-1.0) mg/dL Est Cr Clr Drug Dosing Estimated GFR (MDRD) (>60) Glucose (74-106) mg/dL Calcium (8.5-10.1) mg/dL Total Bilirubin (0.2-1.0) mg/dL AST (15-37) U/L ALT (12-78) U/L Alkaline Phosphatase (46-116) U/L Total Protein (6.4-8.2) g/dL Albumin (3.4-5.0) g/dL Globulin (2.3-3.5) g/dL Albumin/Globulin Ratio (1.2-2.2) Salicylates (2.0-20.0) mg/dL Acetaminophen (10.0-30.0) ug/mL Ethyl Alcohol 350 mg/dL Result Diagrams: 01/31/20 21:15 01/31/20 21:15 Sepsis Event Note - Focused Exam Date Exam was Performed: 01/31/20 Time Exam was Performed: 23:37 *Q Meaningful Use (ADM) - VTE Risk Assess *Q Each Risk Factor Represents 1 Point: None Total Score 1 Point Risk Factors: 0 Each Risk Factor Represents 2 Points: None Total Score 2 Point Risk Factors: 0 Each Risk Factor Represents 3 Points: None Total Score 3 Point Risk Factors: 0 Each Risk Factor Represents 5 Points: None Total Score 5 Point Risk Factors: 0 Venous Thromboembolism Risk Factor Score *Q: 0 Problem List Initiated/Reviewed/Updated: Yes Orders Last 24hrs: Active Orders 24 hr Category Date Time Status Patient Status Manage Transfer [TRANSFER] Routine ADT 01/31/20 23:27 Ordered Peripheral IV Care [RC] . DIRECTED Care 01/31/20 21:15 Active Chest 1V Frontal [CR] Urgent Exams 01/31/20 22:36 Taken DRUG SCREEN, URINE [URCHEM] Stat Lab 01/31/20 23:03 Ordered HCG QUALITATIVE,URINE [URCHEM] Stat Lab 01/31/20 23:03 Ordered UA W/MICROSCOPIC [URIN] Urgent Lab 01/31/20 23:03 Ordered Sodium Chloride 0.9% [Normal Saline] 1,000 ml Med 01/31/20 21:15 Active IV ASDIRECTED Sodium Chloride 0.9% [Saline Flush] Med 01/31/20 21:15 Active 10 ml FLUSH ASDIRECTED PRN Peripheral IV Insertion Adult [OM.PC] Urgent Oth 01/31/20 21:15 Ordered Resuscitation Status Routine Resus Stat 01/31/20 23:30 Ordered Medication Orders Sodium Chloride (Normal Saline) 1,000 mls @ 999 mls/hr IV ASDIRECTED EDDIE Sodium Chloride (Saline Flush) 10 ml FLUSH ASDIRECTED PRN PRN Reason: Keep Vein Open Assessment/Plan Comment:: ASSESSMENT AND PLAN INTENTIONAL DRUG OVERDOSE/ALCOHOL INTOXICATION/SUICIDE ATTEMPT-she has been under increased stress recently because of the of her brother. Apparent intentional drug overdose associated with high alcohol intake with apparent suicide attempt. -72-hour hold per law enforcement -Transfer to psychiatric facility for further evaluation, when medically stable RESPIRATORY DEPRESSION-secondary to alcohol intoxication and drug overdose -Mechanical ventilation for respiratory support -ABGs now and in a.m. -Intubation for airway protection MAINTENANCE ISSUES -DVT prophylaxis; SCUDs -GI prophylaxis; not indicated -Loya catheter; placed in emergency department -Nutrition; n.p.o. -Nicotine dependence; not required CODE STATUS-FULL CODE ADMISSION STATUS-patient will be admitted to inpatient status, expect at least a 2 night hospital stay for evaluation and management of problems as outlined above. At the time of this admission I do not reasonably expected evaluation and management of this problem will require more than a 96 hour hospital stay. DISPOSITION-anticipate discharge to home after the hospital stay. PRIMARY CARE PROVIDER-Dr. Mitchell - Mortality Measure Prognosis:: Good
[2020-02-01] MEDS: Sodium Chloride 0.9% 1,000 ML IV SCH ×2 (06:17→14:30)
--- NOTE | 2020-02-01 09:39 | PCM.PN ---
- General Info Date of Service: 02/01/20 Subjective Update: Raeann was admitted last night after an apparent suicide attempt with alcohol and a variety of medications. She does report this morning that she was feeling very hopeless last night and did not want to go on any longer. She is indifferent this morning about whether or not she is still having these thoughts. She admits to having a variety of stressors recently with the loss of her little brother in the last week as well as to [id number] within the last few months. She reports a longstanding history of mental illness with previous suicide attempts, overdoses and she has been through alcohol treatment twice. She has had difficulty with addiction to alcohol and opiates. She reports that she has been drinking to numb the pain of losing her little brother. I did talk to her mom Safia this morning. The family is very worried about her and her drinking as well as her mental health. They report that she has been drinking large quantities daily and trying to hide it from the family but it has been very apparent that she has been drinking. - Patient Data Vitals - Most Recent: Last Vital Signs Temp 36.8 C 02/01/20 06:18 Pulse 83 01/31/20 22:45 Resp 17 02/01/20 08:00 BP 109/70 02/01/20 08:00 Pulse Ox 98 02/01/20 08:00 Weight - Most Recent: 81.647 kg I&O - Last 24 Hours: Intake & Output 01/31/20 02/01/20 02/01/20 22:59 06:59 14:59 Intake Total 1052 Output Total 1950 Balance -898 Lab Results Last 24 Hours: Laboratory Results - last 24 hr 01/31/20 01/31/20 01/31/20 Range/Units 21:15 21:15 21:15 WBC 11.9 H (4.5-11.0) K/uL RBC 4.66 (3.30-5.50) M/uL Hgb 14.2 (12.0-15.0) g/dL Hct 42.7 (36.0-48.0) % MCV 92 (80-98) fL MCH 31 (27-31) pg MCHC 33 (32-36) % Plt Count 324 (150-400) K/uL Neut % (Auto) 40 (36-66) % Lymph % (Auto) 50 H (24-44) % [place] % (Auto) 9 H (2-6) % Eos % (Auto) 1 L (2-4) % Baso % (Auto) 0 (0-1) % Puncture Site ABG pH (7.350-7.450) ABG pCO2 (35.0-42.0) mmHg ABG pO2 (75.0-100.0) mmHg ABG HCO3 (22.0-26.0) mmol/L ABG Total CO2 (21.0-25.0) mmol/L ABG O2 Saturation (95.0-98.0) % ABG O2 Content (15.0-23.0) %vol ABG Base Excess mm/L ABG Hemoglobin (12.0-16.0) g/dL ABG Oxyhemoglobin % ABG Carboxyhemoglobin (0.0-1.6) % ABG Methemoglobin % O2 Delivery Device Oxygen Flow Rate L Sodium 146 (140-148) mmol/L Potassium 3.9 (3.6-5.2) mmol/L Chloride 107 (100-108) mmol/L Carbon Dioxide 28 (21-32) mmol/L Anion Gap 11.1 (5.0-14.0) mmol/L BUN 10 (7-18) mg/dL Creatinine 0.7 (0.6-1.0) mg/dL Est Cr Clr Drug Dosing TNP Estimated GFR (MDRD) > 60 (>60) Glucose 109 H (74-106) mg/dL Calcium 8.7 (8.5-10.1) mg/dL Total Bilirubin 0.1 L (0.2-1.0) mg/dL AST 33 (15-37) U/L ALT 38 D (12-78) U/L Alkaline Phosphatase 80 (46-116) U/L Total Protein 7.5 (6.4-8.2) g/dL Albumin 3.8 (3.4-5.0) g/dL Globulin 3.7 H (2.3-3.5) g/dL Albumin/Globulin Ratio 1.0 L (1.2-2.2) Urine Color (YELLOW) Urine Appearance (CLEAR) Urine pH (5.0-8.0) Ur Specific [place] (1.008-1.030) Urine Protein (NEGATIVE) mg/dL Urine Glucose (UA) (NEGATIVE) mg/dL Urine Ketones (NEGATIVE) mg/dL Urine Occult Blood (NEGATIVE) Urine Nitrite (NEGATIVE) Urine Bilirubin (NEGATIVE) Urine Urobilinogen (0.2-1.0) EU/dL Ur Leukocyte Esterase (NEGATIVE) Urine RBC (0-5) Urine WBC (0-5) Ur Epithelial Cells Amorphous Sediment Urine Bacteria Urine Mucus Urine HCG, Qual Salicylates 1.6 L (2.0-20.0) mg/dL Urine Opiates Screen (NEGATIVE) Ur Oxycodone Screen (NEGATIVE) Urine Methadone Screen (NEGATIVE) Ur Propoxyphene Screen (NEGATIVE) Acetaminophen 0.0 L (10.0-30.0) ug/mL Ur Barbiturates Screen (NEGATIVE) Ur Tricyclics Screen (NEGATIVE) Ur Phencyclidine Scrn (NEGATIVE) Ur Amphetamine Screen (NEGATIVE) U Methamphetamines Scrn (NEGATIVE) Urine MDMA Screen (NEGATIVE) U Benzodiazepines Scrn (NEGATIVE) U Cocaine Metab Screen (NEGATIVE) U Marijuana (THC) Screen (NEGATIVE) Ethyl Alcohol mg/dL SARS Virus RNA (PCR) (NEGATIVE) 01/31/20 01/31/20 01/31/20 Range/Units 21:15 23:03 23:03 WBC (4.5-11.0) K/uL RBC (3.30-5.50) M/uL Hgb (12.0-15.0) g/dL Hct (36.0-48.0) % MCV (80-98) fL MCH (27-31) pg MCHC (32-36) % Plt Count (150-400) K/uL Neut % (Auto) (36-66) % Lymph % (Auto) (24-44) % [place] % (Auto) (2-6) % Eos % (Auto) (2-4) % Baso % (Auto) (0-1) % Puncture Site ABG pH (7.350-7.450) ABG pCO2 (35.0-42.0) mmHg ABG pO2 (75.0-100.0) mmHg ABG HCO3 (22.0-26.0) mmol/L ABG Total CO2 (21.0-25.0) mmol/L ABG O2 Saturation (95.0-98.0) % ABG O2 Content (15.0-23.0) %vol ABG Base Excess mm/L ABG Hemoglobin (12.0-16.0) g/dL ABG Oxyhemoglobin % ABG Carboxyhemoglobin (0.0-1.6) % ABG Methemoglobin % O2 Delivery Device Oxygen Flow Rate L Sodium (140-148) mmol/L Potassium (3.6-5.2) mmol/L Chloride (100-108) mmol/L Carbon Dioxide (21-32) mmol/L Anion Gap (5.0-14.0) mmol/L BUN (7-18) mg/dL Creatinine (0.6-1.0) mg/dL Est Cr Clr Drug Dosing Estimated GFR (MDRD) (>60) Glucose (74-106) mg/dL Calcium (8.5-10.1) mg/dL Total Bilirubin (0.2-1.0) mg/dL AST (15-37) U/L ALT (12-78) U/L Alkaline Phosphatase (46-116) U/L Total Protein (6.4-8.2) g/dL Albumin (3.4-5.0) g/dL Globulin (2.3-3.5) g/dL Albumin/Globulin Ratio (1.2-2.2) Urine Color Yellow (YELLOW) Urine Appearance Clear (CLEAR) Urine pH 6.0 (5.0-8.0) Ur Specific [place] 1.010 (1.008-1.030) Urine Protein Negative (NEGATIVE) mg/dL Urine Glucose (UA) Negative (NEGATIVE) mg/dL Urine Ketones Negative (NEGATIVE) mg/dL Urine Occult Blood Negative (NEGATIVE) Urine Nitrite Negative (NEGATIVE) Urine Bilirubin Negative (NEGATIVE) Urine Urobilinogen 0.2 (0.2-1.0) EU/dL Ur Leukocyte Esterase Negative (NEGATIVE) Urine RBC 0-5 (0-5) Urine WBC 0-5 (0-5) Ur Epithelial Cells Rare Amorphous Sediment Not seen Urine Bacteria Rare Urine Mucus Not seen Urine HCG, Qual Salicylates (2.0-20.0) mg/dL Urine Opiates Screen Negative (NEGATIVE) Ur Oxycodone Screen Negative (NEGATIVE) Urine Methadone Screen Negative (NEGATIVE) Ur Propoxyphene Screen Negative (NEGATIVE) Acetaminophen (10.0-30.0) ug/mL Ur Barbiturates Screen Negative (NEGATIVE) Ur Tricyclics Screen Negative (NEGATIVE) Ur Phencyclidine Scrn Negative (NEGATIVE) Ur Amphetamine Screen Presumptive positive H (NEGATIVE) U Methamphetamines Scrn Negative (NEGATIVE) Urine MDMA Screen Negative (NEGATIVE) U Benzodiazepines Scrn Presumptive positive H (NEGATIVE) U Cocaine Metab Screen Negative (NEGATIVE) U Marijuana (THC) Screen Negative (NEGATIVE) Ethyl Alcohol 350 mg/dL SARS Virus RNA (PCR) (NEGATIVE) 01/31/20 01/31/20 01/31/20 Range/Units 23:03 23:43 23:55 WBC (4.5-11.0) K/uL RBC (3.30-5.50) M/uL Hgb (12.0-15.0) g/dL Hct (36.0-48.0) % MCV (80-98) fL MCH (27-31) pg MCHC (32-36) % Plt Count (150-400) K/uL Neut % (Auto) (36-66) % Lymph % (Auto) (24-44) % [place] % (Auto) (2-6) % Eos % (Auto) (2-4) % Baso % (Auto) (0-1) % Puncture Site R brachial ABG pH 7.371 (7.350-7.450) ABG pCO2 40.4 (35.0-42.0) mmHg ABG pO2 215.0 H (75.0-100.0) mmHg ABG HCO3 22.9 (22.0-26.0) mmol/L ABG Total CO2 20.3 L (21.0-25.0) mmol/L ABG O2 Saturation 99.1 H (95.0-98.0) % ABG O2 Content 19.2 (15.0-23.0) %vol ABG Base Excess -1.7 mm/L ABG Hemoglobin 13.7 (12.0-16.0) g/dL ABG Oxyhemoglobin 97.3 % ABG Carboxyhemoglobin 1.0 (0.0-1.6) % ABG Methemoglobin 0.8 % O2 Delivery Device Nasal cannula Oxygen Flow Rate L Sodium (140-148) mmol/L Potassium (3.6-5.2) mmol/L Chloride (100-108) mmol/L Carbon Dioxide (21-32) mmol/L Anion Gap (5.0-14.0) mmol/L BUN (7-18) mg/dL Creatinine (0.6-1.0) mg/dL Est Cr Clr Drug Dosing Estimated GFR (MDRD) (>60) Glucose (74-106) mg/dL Calcium (8.5-10.1) mg/dL Total Bilirubin (0.2-1.0) mg/dL AST (15-37) U/L ALT (12-78) U/L Alkaline Phosphatase (46-116) U/L Total Protein (6.4-8.2) g/dL Albumin (3.4-5.0) g/dL Globulin (2.3-3.5) g/dL Albumin/Globulin Ratio (1.2-2.2) Urine Color (YELLOW) Urine Appearance (CLEAR) Urine pH (5.0-8.0) Ur Specific [place] (1.008-1.030) Urine Protein (NEGATIVE) mg/dL Urine Glucose (UA) (NEGATIVE) mg/dL Urine Ketones (NEGATIVE) mg/dL Urine Occult Blood (NEGATIVE) Urine Nitrite (NEGATIVE) Urine Bilirubin (NEGATIVE) Urine Urobilinogen (0.2-1.0) EU/dL Ur Leukocyte Esterase (NEGATIVE) Urine RBC (0-5) Urine WBC (0-5) Ur Epithelial Cells Amorphous Sediment Urine Bacteria Urine Mucus Urine HCG, Qual Negative Salicylates (2.0-20.0) mg/dL Urine Opiates Screen (NEGATIVE) Ur Oxycodone Screen (NEGATIVE) Urine Methadone Screen (NEGATIVE) Ur Propoxyphene Screen (NEGATIVE) Acetaminophen (10.0-30.0) ug/mL Ur Barbiturates Screen (NEGATIVE) Ur Tricyclics Screen (NEGATIVE) Ur Phencyclidine Scrn (NEGATIVE) Ur Amphetamine Screen (NEGATIVE) U Methamphetamines Scrn (NEGATIVE) Urine MDMA Screen (NEGATIVE) U Benzodiazepines Scrn (NEGATIVE) U Cocaine Metab Screen (NEGATIVE) U Marijuana (THC) Screen (NEGATIVE) Ethyl Alcohol mg/dL SARS Virus RNA (PCR) Negative (NEGATIVE) 02/01/20 02/01/20 Range/Units 05:45 05:45 WBC 9.9 (4.5-11.0) K/uL RBC 4.18 (3.30-5.50) M/uL Hgb 12.6 (12.0-15.0) g/dL Hct 38.7 (36.0-48.0) % MCV 93 (80-98) fL MCH 30 (27-31) pg MCHC 33 (32-36) % Plt Count 266 (150-400) K/uL Neut % (Auto) 67 H (36-66) % Lymph % (Auto) 26 (24-44) % [place] % (Auto) 6 (2-6) % Eos % (Auto) 1 L (2-4) % Baso % (Auto) 0 (0-1) % Puncture Site ABG pH (7.350-7.450) ABG pCO2 (35.0-42.0) mmHg ABG pO2 (75.0-100.0) mmHg ABG HCO3 (22.0-26.0) mmol/L ABG Total CO2 (21.0-25.0) mmol/L ABG O2 Saturation (95.0-98.0) % ABG O2 Content (15.0-23.0) %vol ABG Base Excess mm/L ABG Hemoglobin (12.0-16.0) g/dL ABG Oxyhemoglobin % ABG Carboxyhemoglobin (0.0-1.6) % ABG Methemoglobin % O2 Delivery Device Oxygen Flow Rate L Sodium 148 (140-148) mmol/L Potassium 4.3 (3.6-5.2) mmol/L Chloride 111 H (100-108) mmol/L Carbon Dioxide 26 (21-32) mmol/L Anion Gap 15.3 H (5.0-14.0) mmol/L BUN 8 (7-18) mg/dL Creatinine 0.6 (0.6-1.0) mg/dL Est Cr Clr Drug Dosing 138.82 Estimated GFR (MDRD) > 60 (>60) Glucose 90 (74-106) mg/dL Calcium 7.8 L (8.5-10.1) mg/dL Total Bilirubin (0.2-1.0) mg/dL AST (15-37) U/L ALT (12-78) U/L Alkaline Phosphatase (46-116) U/L Total Protein (6.4-8.2) g/dL Albumin (3.4-5.0) g/dL Globulin (2.3-3.5) g/dL Albumin/Globulin Ratio (1.2-2.2) Urine Color (YELLOW) Urine Appearance (CLEAR) Urine pH (5.0-8.0) Ur Specific [place] (1.008-1.030) Urine Protein (NEGATIVE) mg/dL Urine Glucose (UA) (NEGATIVE) mg/dL Urine Ketones (NEGATIVE) mg/dL Urine Occult Blood (NEGATIVE) Urine Nitrite (NEGATIVE) Urine Bilirubin (NEGATIVE) Urine Urobilinogen (0.2-1.0) EU/dL Ur Leukocyte Esterase (NEGATIVE) Urine RBC (0-5) Urine WBC (0-5) Ur Epithelial Cells Amorphous Sediment Urine Bacteria Urine Mucus Urine HCG, Qual Salicylates (2.0-20.0) mg/dL Urine Opiates Screen (NEGATIVE) Ur Oxycodone Screen (NEGATIVE) Urine Methadone Screen (NEGATIVE) Ur Propoxyphene Screen (NEGATIVE) Acetaminophen (10.0-30.0) ug/mL Ur Barbiturates Screen (NEGATIVE) Ur Tricyclics Screen (NEGATIVE) Ur Phencyclidine Scrn (NEGATIVE) Ur Amphetamine Screen (NEGATIVE) U Methamphetamines Scrn (NEGATIVE) Urine MDMA Screen (NEGATIVE) U Benzodiazepines Scrn (NEGATIVE) U Cocaine Metab Screen (NEGATIVE) U Marijuana (THC) Screen (NEGATIVE) Ethyl Alcohol mg/dL SARS Virus RNA (PCR) (NEGATIVE) Med Orders - Current: Current Medications Albuterol (Proventil Neb Soln) 2.5 mg NEB Q4H PRN PRN Reason: Shortness Of Breath/wheezing Sodium Chloride (Normal Saline) 1,000 mls @ 125 mls/hr IV ASDIRECTED [facility] Last Admin: 02/01/20 06:17 Dose: 125 mls/hr Documented by: Ondansetron HCl (Zofran) 4 mg IV Q4H PRN PRN Reason: Nausea/Vomiting Sodium Chloride (Saline Flush) 10 ml FLUSH ASDIRECTED PRN PRN Reason: Keep Vein Open Discontinued Medications Diphenhydramine HCl (Benadryl) 50 mg IVPUSH ONETIME ONE Stop: 01/31/20 21:17 Last Admin: 02/01/20 02:24 Dose: Not Given Documented by: Etomidate (Amidate) 20 mg IVPUSH ONETIME ONE Stop: 01/31/20 22:33 Last Admin: 01/31/20 22:11 Dose: 20 mg Documented by: Haloperidol Lactate (Haldol) 5 mg IVPUSH ONETIME ONE Stop: 01/31/20 21:17 Last Admin: 02/01/20 02:23 Dose: Not Given Documented by: Sodium Chloride (Normal Saline) 1,000 mls @ 999 mls/hr IV ASDIRECTED EDDIE Propofol (Diprivan 100 Ml) Confirm Administered Dose 100 mls @ as directed .ROUTE .STK-MED ONE Stop: 01/31/20 21:41 Last Admin: 02/01/20 02:23 Dose: Not Given Documented by: Propofol (Diprivan 100 Ml) 100 mls @ 40 mls/hr IV TITRATE EDDIE; Protocol Last Admin: 01/31/20 22:20 Dose: 40 mls/hr, 40 mls/hr Documented by: Lorazepam (Ativan) 2 mg IVPUSH ONETIME ONE Stop: 01/31/20 21:17 Last Admin: 02/01/20 02:24 Dose: Not Given Documented by: Propofol (Diprivan 20 Ml) 50 mg IVPUSH ONETIME ONE Stop: 01/31/20 22:33 Last Admin: 02/01/20 02:23 Dose: Not Given Documented by: Sodium Chloride (Saline Flush) 10 ml FLUSH ASDIRECTED PRN PRN Reason: Keep Vein Open Sumatriptan Succinate (Sumatriptan) 100 mg PO ONETIME ONE Stop: 02/01/20 09:31 Last Admin: 02/01/20 09:25 Dose: 100 mg Documented by: - Exam Quality Assessment: No: Supplemental Oxygen General: Alert, Oriented, Cooperative, Mild Distress HEENT: Pupils Equal Lungs: Normal Respiratory Effort Cardiovascular: Regular Rate, Regular Rhythm GI/Abdominal Exam: Soft, No Distention Extremities: No Pedal Edema Skin: Warm, Dry Psy/Mental Status: Alert, Depressed Sepsis Event Note - Evaluation Sepsis Screening Result: No Definite Risk - Focused Exam Vital Signs: Vital Signs Temp Pulse Resp BP Pulse Ox 02/01/20 08:00 17 109/70 98 02/01/20 06:18 36.8 C 17 96/56 L 97 02/01/20 03:00 18 94/55 L 96 02/01/20 02:00 12 114/74 100 02/01/20 01:00 12 109/72 100 02/01/20 00:00 16 121/89 100 01/31/20 23:40 100 01/31/20 23:30 36.6 C 12 125/89 99 01/31/20 22:55 10 L 128/94 H 99 01/31/20 22:45 83 9 L 121/89 100 01/31/20 22:40 85 11 L 120/87 100 01/31/20 22:35 88 14 123/84 100 01/31/20 22:30 90 13 122/85 100 01/31/20 22:15 109 H 15 120/94 H 100 01/31/20 21:45 91 21 H 105/58 L 93 L Date Exam was Performed: 02/01/20 Time Exam was Performed: 09:53 - Problem List Review Problem List Initiated/Reviewed/Updated: Yes - My Orders Last 24 Hours: My Active Orders 02/01/20 Breakfast Regular Diet [DIET] - Plan Plan:: ASSESSMENT AND PLAN INTENTIONAL DRUG OVERDOSE/ALCOHOL INTOXICATION/SUICIDE ATTEMPT-massive stressors lately on top of longstanding mental health issues. She does admit to feeling suicidal last night. She ingested a large quantity of alcohol as well as a variety of other home medications. I believe this was a very severe episode and that she would benefit from inpatient psychiatric evaluation and management. She is not coping well with the loss of several loved ones for acutely or with more chronic stressors on top of her other mental health problems. I believe she is medically stable for transfer at this time. -72-hour hold per law enforcement -Transfer to psychiatric facility for further evaluation RESPIRATORY DEPRESSION-secondary to alcohol intoxication and drug overdose. Extubated overnight and stable this morning. MAINTENANCE ISSUES -DVT prophylaxis; SCUDs -GI prophylaxis; not indicated -Loya catheter; will be removed this morning -Nutrition; regular diet DISPOSITION-anticipate transfer to psychiatric facility when a bed is available Jalen Collazo MD
[2020-02-01] MEDS ORDERED: Benzocaine/Cetylpyridinium/Menthol Lozenge MUCMEM PRN (09:58)
--- NOTE | 2020-02-01 11:33 | CR ---
CHEST: Portable 01/31/2020 at 10:37 PM CLINICAL HISTORY:Intubation COMPARISON:None FINDINGS: There is an endotracheal tube in the midtrachea just over 4 cm from the hay. The heart size, pulmonary vascularity and hilar structures are normal. No infiltrate effusion or pneumothorax is seen. IMPRESSION: Endotracheal tube in mid trachea No acute cardiopulmonary process.
--- NOTE | 2020-02-01 17:04 | PCM.DCSUM1 ---
Discharge Summary - Hospital Course Brief History: 39-year-old female with history of major depression, previous suicide attempts, generalized anxiety disorder and recent alcohol abuse who presented after an apparent suicide attempt with alcohol and benzodiazepines. She was intubated in the emergency room because of a decreased level of consciousness and admitted to the intensive care unit. - Discharge Data Discharge Date: 02/01/20 Discharge Disposition: DC/Tfer to Psych Hosp/Unit 65 Condition: Stable - Referral to Home Health Primary Care Physician: PCP None - Patient Summary/Data Hospital Course: Raeann presented to the emergency room by ambulance after calling 911 to report an apparent suicide attempt after ingesting a large quantity of alcohol and benzodiazepines along with potentially other home medications. Initially in the emergency room she was responsive but became obtunded shortly thereafter and required intubation because of a [place] Coma Scale of 4. Laboratory studies were unremarkable. Her urine drug screen was positive for amphetamines, benzodiazepines. Her blood alcohol at the time of presentation was 350. She was admitted to the intensive care unit for further management. Several hours after admission the patient self extubated. She has been stable since that time. She has not required any supplemental oxygen. Her vital signs have all been stable. Repeat laboratory testing this morning was unremarkable. After talking to her and gathering more information I believe this was a very serious event. She does have a fairly significant psychiatric history with an acute deterioration. She has a multitude of stressors including the loss of 2 brothers and loss as well as a younger brother more recently. 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 She has been off of her medications for a couple of weeks. She has been coping with her depression and anxiety with alcohol. She reports that she wants to sleep all day to avoid having any pain. She has not sought psychiatric help recently. I think she would benefit from a period of inpatient psychiatric evaluation and treatment. I believe she is stable and safe for transport at this time. She has been independent in her room. I do not have any concerns about alcohol or benzodiazepine withdrawal at this time. I believe that the benefits of transfer far outweigh any risks at this time. She is currently on a 72-hour hold that was initiated at 1345 on January 31. Her case was discussed with Dr. Carrasco at [facility] in [place] and he graciously accepted her care and transfer. Covid testing was negative testing was negative - Discharge Plan *PRESCRIPTION DRUG MONITORING PROGRAM REVIEWED*: Not Applicable *COPY OF PRESCRIPTION DRUG MONITORING REPORT IN PATIENT OLENA: Not Applicable Home Medications: Home Meds Amphetamine/Dextroamphetamine [Adderall] 7.5 mg PO BID 09/23/19 [History] Cyclobenzaprine [Flexeril] 10 mg PO BEDTIME 09/23/19 [History] Gabapentin [Neurontin] 600 mg PO TID 09/23/19 [History] SUMAtriptan 100 mg PO ASDIRECTED PRN 09/23/19 [History] Sertraline HCl 100 mg PO DAILY 09/23/19 [History] Spironolactone [Aldactone] 100 mg PO DAILY 09/23/19 [History] buPROPion [Wellbutrin SR] 150 mg PO BID 09/23/19 [History] hydrOXYzine HCL [Hydroxyzine HCl] 10 mg PO ASDIRECTED PRN 09/23/19 [History] traZODone 200 mg PO BEDTIME 09/23/19 [History] diazePAM [Valium] 5 mg PO ASDIRECTED 10/12/19 [History] ARIPiprazole [Abilify] 2 mg PO DAILY 01/31/20 [History] Forms: ED Department Discharge Referrals: PCP,None [Primary Care Provider] - - Discharge Summary/Plan Comment DC Time >30 min.: Yes (45-transfer to acute hospital ) - Patient Data Vitals - Most Recent: Last Vital Signs Temp 36.8 C 02/01/20 16:00 Pulse 75 02/01/20 12:00 Resp 15 02/01/20 16:00 BP 117/63 02/01/20 16:00 Pulse Ox 100 02/01/20 16:00 Weight - Most Recent: 81.964 kg I&O - Last 24 hours: Intake & Output 02/01/20 02/01/20 02/01/20 06:59 14:59 22:59 Intake Total 9033 775 1593 Output Total 1950 650 400 Balance -975 18 6866 Lab Results - Last 24 hrs: Laboratory Results - last 24 hr 01/31/20 01/31/20 01/31/20 Range/Units 21:15 21:15 21:15 WBC 11.9 H (4.5-11.0) K/uL RBC 4.66 (3.30-5.50) M/uL Hgb 14.2 (12.0-15.0) g/dL Hct 42.7 (36.0-48.0) % MCV 92 (80-98) fL MCH 31 (27-31) pg MCHC 33 (32-36) % Plt Count 324 (150-400) K/uL Neut % (Auto) 40 (36-66) % Lymph % (Auto) 50 H (24-44) % [place] % (Auto) 9 H (2-6) % Eos % (Auto) 1 L (2-4) % Baso % (Auto) 0 (0-1) % Puncture Site ABG pH (7.350-7.450) ABG pCO2 (35.0-42.0) mmHg ABG pO2 (75.0-100.0) mmHg ABG HCO3 (22.0-26.0) mmol/L ABG Total CO2 (21.0-25.0) mmol/L ABG O2 Saturation (95.0-98.0) % ABG O2 Content (15.0-23.0) %vol ABG Base Excess mm/L ABG Hemoglobin (12.0-16.0) g/dL ABG Oxyhemoglobin % ABG Carboxyhemoglobin (0.0-1.6) % ABG Methemoglobin % O2 Delivery Device Oxygen Flow Rate L Sodium 146 (140-148) mmol/L Potassium 3.9 (3.6-5.2) mmol/L Chloride 107 (100-108) mmol/L Carbon Dioxide 28 (21-32) mmol/L Anion Gap 11.1 (5.0-14.0) mmol/L BUN 10 (7-18) mg/dL Creatinine 0.7 (0.6-1.0) mg/dL Est Cr Clr Drug Dosing TNP Estimated GFR (MDRD) > 60 (>60) Glucose 109 H (74-106) mg/dL Calcium 8.7 (8.5-10.1) mg/dL Total Bilirubin 0.1 L (0.2-1.0) mg/dL AST 33 (15-37) U/L ALT 38 D (12-78) U/L Alkaline Phosphatase 80 (46-116) U/L Total Protein 7.5 (6.4-8.2) g/dL Albumin 3.8 (3.4-5.0) g/dL Globulin 3.7 H (2.3-3.5) g/dL Albumin/Globulin Ratio 1.0 L (1.2-2.2) Urine Color (YELLOW) Urine Appearance (CLEAR) Urine pH (5.0-8.0) Ur Specific [place] (1.008-1.030) Urine Protein (NEGATIVE) mg/dL Urine Glucose (UA) (NEGATIVE) mg/dL Urine Ketones (NEGATIVE) mg/dL Urine Occult Blood (NEGATIVE) Urine Nitrite (NEGATIVE) Urine Bilirubin (NEGATIVE) Urine Urobilinogen (0.2-1.0) EU/dL Ur Leukocyte Esterase (NEGATIVE) Urine RBC (0-5) Urine WBC (0-5) Ur Epithelial Cells Amorphous Sediment Urine Bacteria Urine Mucus Urine HCG, Qual Salicylates 1.6 L (2.0-20.0) mg/dL Urine Opiates Screen (NEGATIVE) Ur Oxycodone Screen (NEGATIVE) Urine Methadone Screen (NEGATIVE) Ur Propoxyphene Screen (NEGATIVE) Acetaminophen 0.0 L (10.0-30.0) ug/mL Ur Barbiturates Screen (NEGATIVE) Ur Tricyclics Screen (NEGATIVE) Ur Phencyclidine Scrn (NEGATIVE) Ur Amphetamine Screen (NEGATIVE) U Methamphetamines Scrn (NEGATIVE) Urine MDMA Screen (NEGATIVE) U Benzodiazepines Scrn (NEGATIVE) U Cocaine Metab Screen (NEGATIVE) U Marijuana (THC) Screen (NEGATIVE) Ethyl Alcohol mg/dL SARS Virus RNA (PCR) (NEGATIVE) 01/31/20 01/31/20 01/31/20 Range/Units 21:15 23:03 23:03 WBC (4.5-11.0) K/uL RBC (3.30-5.50) M/uL Hgb (12.0-15.0) g/dL Hct (36.0-48.0) % MCV (80-98) fL MCH (27-31) pg MCHC (32-36) % Plt Count (150-400) K/uL Neut % (Auto) (36-66) % Lymph % (Auto) (24-44) % [place] % (Auto) (2-6) % Eos % (Auto) (2-4) % Baso % (Auto) (0-1) % Puncture Site ABG pH (7.350-7.450) ABG pCO2 (35.0-42.0) mmHg ABG pO2 (75.0-100.0) mmHg ABG HCO3 (22.0-26.0) mmol/L ABG Total CO2 (21.0-25.0) mmol/L ABG O2 Saturation (95.0-98.0) % ABG O2 Content (15.0-23.0) %vol ABG Base Excess mm/L ABG Hemoglobin (12.0-16.0) g/dL ABG Oxyhemoglobin % ABG Carboxyhemoglobin (0.0-1.6) % ABG Methemoglobin % O2 Delivery Device Oxygen Flow Rate L Sodium (140-148) mmol/L Potassium (3.6-5.2) mmol/L Chloride (100-108) mmol/L Carbon Dioxide (21-32) mmol/L Anion Gap (5.0-14.0) mmol/L BUN (7-18) mg/dL Creatinine (0.6-1.0) mg/dL Est Cr Clr Drug Dosing Estimated GFR (MDRD) (>60) Glucose (74-106) mg/dL Calcium (8.5-10.1) mg/dL Total Bilirubin (0.2-1.0) mg/dL AST (15-37) U/L ALT (12-78) U/L Alkaline Phosphatase (46-116) U/L Total Protein (6.4-8.2) g/dL Albumin (3.4-5.0) g/dL Globulin (2.3-3.5) g/dL Albumin/Globulin Ratio (1.2-2.2) Urine Color Yellow (YELLOW) Urine Appearance Clear (CLEAR) Urine pH 6.0 (5.0-8.0) Ur Specific [place] 1.010 (1.008-1.030) Urine Protein Negative (NEGATIVE) mg/dL Urine Glucose (UA) Negative (NEGATIVE) mg/dL Urine Ketones Negative (NEGATIVE) mg/dL Urine Occult Blood Negative (NEGATIVE) Urine Nitrite Negative (NEGATIVE) Urine Bilirubin Negative (NEGATIVE) Urine Urobilinogen 0.2 (0.2-1.0) EU/dL Ur Leukocyte Esterase Negative (NEGATIVE) Urine RBC 0-5 (0-5) Urine WBC 0-5 (0-5) Ur Epithelial Cells Rare Amorphous Sediment Not seen Urine Bacteria Rare Urine Mucus Not seen Urine HCG, Qual Salicylates (2.0-20.0) mg/dL Urine Opiates Screen Negative (NEGATIVE) Ur Oxycodone Screen Negative (NEGATIVE) Urine Methadone Screen Negative (NEGATIVE) Ur Propoxyphene Screen Negative (NEGATIVE) Acetaminophen (10.0-30.0) ug/mL Ur Barbiturates Screen Negative (NEGATIVE) Ur Tricyclics Screen Negative (NEGATIVE) Ur Phencyclidine Scrn Negative (NEGATIVE) Ur Amphetamine Screen Presumptive positive H (NEGATIVE) U Methamphetamines Scrn Negative (NEGATIVE) Urine MDMA Screen Negative (NEGATIVE) U Benzodiazepines Scrn Presumptive positive H (NEGATIVE) U Cocaine Metab Screen Negative (NEGATIVE) U Marijuana (THC) Screen Negative (NEGATIVE) Ethyl Alcohol 350 mg/dL SARS Virus RNA (PCR) (NEGATIVE) 01/31/20 01/31/20 01/31/20 Range/Units 23:03 23:43 23:55 WBC (4.5-11.0) K/uL RBC (3.30-5.50) M/uL Hgb (12.0-15.0) g/dL Hct (36.0-48.0) % MCV (80-98) fL MCH (27-31) pg MCHC (32-36) % Plt Count (150-400) K/uL Neut % (Auto) (36-66) % Lymph % (Auto) (24-44) % [place] % (Auto) (2-6) % Eos % (Auto) (2-4) % Baso % (Auto) (0-1) % Puncture Site R brachial ABG pH 7.371 (7.350-7.450) ABG pCO2 40.4 (35.0-42.0) mmHg ABG pO2 215.0 H (75.0-100.0) mmHg ABG HCO3 22.9 (22.0-26.0) mmol/L ABG Total CO2 20.3 L (21.0-25.0) mmol/L ABG O2 Saturation 99.1 H (95.0-98.0) % ABG O2 Content 19.2 (15.0-23.0) %vol ABG Base Excess -1.7 mm/L ABG Hemoglobin 13.7 (12.0-16.0) g/dL ABG Oxyhemoglobin 97.3 % ABG Carboxyhemoglobin 1.0 (0.0-1.6) % ABG Methemoglobin 0.8 % O2 Delivery Device Nasal cannula Oxygen Flow Rate L Sodium (140-148) mmol/L Potassium (3.6-5.2) mmol/L Chloride (100-108) mmol/L Carbon Dioxide (21-32) mmol/L Anion Gap (5.0-14.0) mmol/L BUN (7-18) mg/dL Creatinine (0.6-1.0) mg/dL Est Cr Clr Drug Dosing Estimated GFR (MDRD) (>60) Glucose (74-106) mg/dL Calcium (8.5-10.1) mg/dL Total Bilirubin (0.2-1.0) mg/dL AST (15-37) U/L ALT (12-78) U/L Alkaline Phosphatase (46-116) U/L Total Protein (6.4-8.2) g/dL Albumin (3.4-5.0) g/dL Globulin (2.3-3.5) g/dL Albumin/Globulin Ratio (1.2-2.2) Urine Color (YELLOW) Urine Appearance (CLEAR) Urine pH (5.0-8.0) Ur Specific [place] (1.008-1.030) Urine Protein (NEGATIVE) mg/dL Urine Glucose (UA) (NEGATIVE) mg/dL Urine Ketones (NEGATIVE) mg/dL Urine Occult Blood (NEGATIVE) Urine Nitrite (NEGATIVE) Urine Bilirubin (NEGATIVE) Urine Urobilinogen (0.2-1.0) EU/dL Ur Leukocyte Esterase (NEGATIVE) Urine RBC (0-5) Urine WBC (0-5) Ur Epithelial Cells Amorphous Sediment Urine Bacteria Urine Mucus Urine HCG, Qual Negative Salicylates (2.0-20.0) mg/dL Urine Opiates Screen (NEGATIVE) Ur Oxycodone Screen (NEGATIVE) Urine Methadone Screen (NEGATIVE) Ur Propoxyphene Screen (NEGATIVE) Acetaminophen (10.0-30.0) ug/mL Ur Barbiturates Screen (NEGATIVE) Ur Tricyclics Screen (NEGATIVE) Ur Phencyclidine Scrn (NEGATIVE) Ur Amphetamine Screen (NEGATIVE) U Methamphetamines Scrn (NEGATIVE) Urine MDMA Screen (NEGATIVE) U Benzodiazepines Scrn (NEGATIVE) U Cocaine Metab Screen (NEGATIVE) U Marijuana (THC) Screen (NEGATIVE) Ethyl Alcohol mg/dL SARS Virus RNA (PCR) Negative (NEGATIVE) 02/01/20 02/01/20 Range/Units 05:45 05:45 WBC 9.9 (4.5-11.0) K/uL RBC 4.18 (3.30-5.50) M/uL Hgb 12.6 (12.0-15.0) g/dL Hct 38.7 (36.0-48.0) % MCV 93 (80-98) fL MCH 30 (27-31) pg MCHC 33 (32-36) % Plt Count 266 (150-400) K/uL Neut % (Auto) 67 H (36-66) % Lymph % (Auto) 26 (24-44) % [place] % (Auto) 6 (2-6) % Eos % (Auto) 1 L (2-4) % Baso % (Auto) 0 (0-1) % Puncture Site ABG pH (7.350-7.450) ABG pCO2 (35.0-42.0) mmHg ABG pO2 (75.0-100.0) mmHg ABG HCO3 (22.0-26.0) mmol/L ABG Total CO2 (21.0-25.0) mmol/L ABG O2 Saturation (95.0-98.0) % ABG O2 Content (15.0-23.0) %vol ABG Base Excess mm/L ABG Hemoglobin (12.0-16.0) g/dL ABG Oxyhemoglobin % ABG Carboxyhemoglobin (0.0-1.6) % ABG Methemoglobin % O2 Delivery Device Oxygen Flow Rate L Sodium 148 (140-148) mmol/L Potassium 4.3 (3.6-5.2) mmol/L Chloride 111 H (100-108) mmol/L Carbon Dioxide 26 (21-32) mmol/L Anion Gap 15.3 H (5.0-14.0) mmol/L BUN 8 (7-18) mg/dL Creatinine 0.6 (0.6-1.0) mg/dL Est Cr Clr Drug Dosing 138.82 Estimated GFR (MDRD) > 60 (>60) Glucose 90 (74-106) mg/dL Calcium 7.8 L (8.5-10.1) mg/dL Total Bilirubin (0.2-1.0) mg/dL AST (15-37) U/L ALT (12-78) U/L Alkaline Phosphatase (46-116) U/L Total Protein (6.4-8.2) g/dL Albumin (3.4-5.0) g/dL Globulin (2.3-3.5) g/dL Albumin/Globulin Ratio (1.2-2.2) Urine Color (YELLOW) Urine Appearance (CLEAR) Urine pH (5.0-8.0) Ur Specific [place] (1.008-1.030) Urine Protein (NEGATIVE) mg/dL Urine Glucose (UA) (NEGATIVE) mg/dL Urine Ketones (NEGATIVE) mg/dL Urine Occult Blood (NEGATIVE) Urine Nitrite (NEGATIVE) Urine Bilirubin (NEGATIVE) Urine Urobilinogen (0.2-1.0) EU/dL Ur Leukocyte Esterase (NEGATIVE) Urine RBC (0-5) Urine WBC (0-5) Ur Epithelial Cells Amorphous Sediment Urine Bacteria Urine Mucus Urine HCG, Qual Salicylates (2.0-20.0) mg/dL Urine Opiates Screen (NEGATIVE) Ur Oxycodone Screen (NEGATIVE) Urine Methadone Screen (NEGATIVE) Ur Propoxyphene Screen (NEGATIVE) Acetaminophen (10.0-30.0) ug/mL Ur Barbiturates Screen (NEGATIVE) Ur Tricyclics Screen (NEGATIVE) Ur Phencyclidine Scrn (NEGATIVE) Ur Amphetamine Screen (NEGATIVE) U Methamphetamines Scrn (NEGATIVE) Urine MDMA Screen (NEGATIVE) U Benzodiazepines Scrn (NEGATIVE) U Cocaine Metab Screen (NEGATIVE) U Marijuana (THC) Screen (NEGATIVE) Ethyl Alcohol mg/dL SARS Virus RNA (PCR) (NEGATIVE) Med Orders - Current: Current Medications Albuterol (Proventil Neb Soln) 2.5 mg NEB Q4H PRN PRN Reason: Shortness Of Breath/wheezing Benzocaine/Menthol (Cepacol Sore Throat) 1 lozenge MUCMEM Q2H PRN PRN Reason: Sore Throat Last Admin: 02/01/20 16:19 Dose: 1 ok Documented by: Sodium Chloride (Normal Saline) 1,000 mls @ 125 mls/hr IV ASDIRECTED EDDIE Last Admin: 02/01/20 14:30 Dose: 125 mls/hr Documented by: Ondansetron HCl (Zofran) 4 mg IV Q4H PRN PRN Reason: Nausea/Vomiting Last Admin: 02/01/20 10:45 Dose: 4 mg Documented by: Sodium Chloride (Saline Flush) 10 ml FLUSH ASDIRECTED PRN PRN Reason: Keep Vein Open Discontinued Medications Diphenhydramine HCl (Benadryl) 50 mg IVPUSH ONETIME ONE Stop: 01/31/20 21:17 Last Admin: 02/01/20 02:24 Dose: Not Given Documented by: Etomidate (Amidate) 20 mg IVPUSH ONETIME ONE Stop: 01/31/20 22:33 Last Admin: 01/31/20 22:11 Dose: 20 mg Documented by: Haloperidol Lactate (Haldol) 5 mg IVPUSH ONETIME ONE Stop: 01/31/20 21:17 Last Admin: 02/01/20 02:23 Dose: Not Given Documented by: Sodium Chloride (Normal Saline) 1,000 mls @ 999 mls/hr IV ASDIRECTED EDDIE Propofol (Diprivan 100 Ml) Confirm Administered Dose 100 mls @ as directed .ROUTE .STK-MED ONE Stop: 01/31/20 21:41 Last Admin: 02/01/20 02:23 Dose: Not Given Documented by: Propofol (Diprivan 100 Ml) 100 mls @ 40 mls/hr IV TITRATE EDDIE; Protocol Last Admin: 01/31/20 22:20 Dose: 40 mls/hr, 40 mls/hr Documented by: Lorazepam (Ativan) 2 mg IVPUSH ONETIME ONE Stop: 01/31/20 21:17 Last Admin: 02/01/20 02:24 Dose: Not Given Documented by: Propofol (Diprivan 20 Ml) 50 mg IVPUSH ONETIME ONE Stop: 01/31/20 22:33 Last Admin: 02/01/20 02:23 Dose: Not Given Documented by: Sodium Chloride (Saline Flush) 10 ml FLUSH ASDIRECTED PRN PRN Reason: Keep Vein Open Sumatriptan Succinate (Sumatriptan) 100 mg PO ONETIME ONE Stop: 02/01/20 09:31 Last Admin: 02/01/20 09:25 Dose: 100 mg Documented by: - Exam Quality Assessment: Denies: Supplemental Oxygen General: Reports: Alert, Oriented, Cooperative, No Acute Distress Lungs: Reports: Normal Respiratory Effort Cardiovascular: Reports: Regular Rate, Regular Rhythm GI/Abdominal Exam: Soft, No Distention Skin: Reports: Warm, Dry Psy/Mental Status: Reports: Alert. Denies: Agitated
== END 2020-02-01 18:35 | DRG 918 ==
LOC: JP.ED 21:14 → JP.ICU 23:02
PROVIDERS: ADMIT Hospitalist; ATTEND Internal Medicine
PROC: 0BH17EZ Insertion of Endotracheal Airway into Trachea, Via Natural or Artificial Opening (ICD-10-PCS; principal; 2020-01-31)
PROC: 5A1935Z Respiratory Ventilation, Less than 24 Consecutive Hours (ICD-10-PCS; 2020-01-31)
DX: T51.92XA Toxic effect of unspecified alcohol, intentional self-harm, initial encounter (principal); T42.4X2A Poisoning by benzodiazepines, intentional self-harm, initial encounter; R40.2432 Glasgow coma scale score 3-8, at arrival to emergency department; F43.10 Post-traumatic stress disorder, unspecified; F41.9 Anxiety disorder, unspecified; F32.9 Major depressive disorder, single episode, unspecified; J45.909 Unspecified asthma, uncomplicated; K21.9 Gastro-esophageal reflux disease without esophagitis; Z87.440 Personal history of urinary (tract) infections; G43.909 Migraine, unspecified, not intractable, without status migrainosus; G89.29 Other chronic pain; M54.9 Dorsalgia, unspecified; F60.9 Personality disorder, unspecified; F90.9 Attention-deficit hyperactivity disorder, unspecified type; E21.3 Hyperparathyroidism, unspecified; F17.210 Nicotine dependence, cigarettes, uncomplicated; F10.129 Alcohol abuse with intoxication, unspecified; Z79.899 Other long term (current) drug therapy; Z91.09 Other allergy status, other than to drugs and biological substances; F29 Unspecified psychosis not due to a substance or known physiological condition; Y90.8 Blood alcohol level of 240 mg/100 ml or more; Z20.828 Contact with and (suspected) exposure to other viral communicable diseases
CPT/HCPCS: 31500; 36415; 36600; 43753; 51702; 71045; 71045-26; 80048; 80053; 80305-QW; 80307; 81001; 81025; 82803; 85025; 94002; 96360; 99285-25; A9270-GY; J2405; J2704; J3490; J7030; U0002

== ENCOUNTER 2020-03-26 13:28 | Emergency (ER) | payer MEDICAID ==
--- NOTE | 2020-03-26 14:03 | EDM.PDOC ---
ED HPI GENERAL MEDICAL PROBLEM - General Chief Complaint: General Stated Complaint: SORE THROAT/TESTED POSS. FOR COVID 3WKS AGO Time Seen by Provider: 03/26/20 14:03 Source of Information: Reports: Patient, RN - History of Present Illness INITIAL COMMENTS - FREE TEXT/NARRATIVE: Yamilka is an alert 39 year old female presenting to ER for evaluation of severe left side throat pain. Patient report pain started yesterday and has become more severe. She has taken Ibuprofen on a fairly regular bases for the last 36 hours without improvement of symptoms. She reports pain with opening her mouth wide and swallowing. She had not ate or drink much for fluids today due to severe pain with swallowing. Yamilka has noticed increased swelling in the left side of her neck. She denies ear pain, dental concerns, headache or fevers. She noticed chills and sweats last night. Yamilka presents to ER with male significant other whom is comfortable taking her home this afternoon. Throat Pain Score (Numeric/FACES): 8 - Related Data Allergies Allergy/AdvReac Type Severity Reaction Status Date / Time iron Allergy Cannot Verified 01/31/20 22:12 Remember Home Meds: Home Meds Amphetamine/Dextroamphetamine [Adderall] 7.5 mg PO BID 09/23/19 [History] Cyclobenzaprine [Flexeril] 10 mg PO BEDTIME 09/23/19 [History] Gabapentin [Neurontin] 600 mg PO TID 09/23/19 [History] SUMAtriptan 100 mg PO ASDIRECTED PRN 09/23/19 [History] Sertraline HCl 100 mg PO DAILY 09/23/19 [History] Spironolactone [Aldactone] 100 mg PO DAILY 09/23/19 [History] buPROPion [Wellbutrin SR] 150 mg PO BID 09/23/19 [History] hydrOXYzine HCL [Hydroxyzine HCl] 10 mg PO ASDIRECTED PRN 09/23/19 [History] traZODone 200 mg PO BEDTIME 09/23/19 [History] diazePAM [Valium] 5 mg PO ASDIRECTED 10/12/19 [History] ARIPiprazole [Abilify] 2 mg PO DAILY 01/31/20 [History] Acetaminophen/HYDROcodone [[place] 325-5 MG] 1 - 2 tab PO Q6H PRN 1 Days #4 tab 03/26/20 [Rx] Doxycycline [Vibramycin] 100 mg PO BID 10 Days #20 cap 03/26/20 [Rx] Naproxen [Naprosyn] 500 mg PO Q8H PRN 5 Days #30 tablet 03/26/20 [Rx] Past Medical History HEENT History: Reports: Allergic Rhinitis Cardiovascular History: Reports: Other (See Below) Other Cardiovascular History: POTS Respiratory History: Reports: Asthma Gastrointestinal History: Reports: Celiac Disease, GERD Genitourinary History: Reports: UTI, Recurrent 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: Other (See Below) Other 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 BOX MACHINE OPERATOR History: abnormal pap but never followed up on it Musculoskeletal History: Reports: Back Pain, Chronic Neurological History: Reports: Migraines, Other (See Below) Other Neuro History: insomnia Psychiatric History: Reports: ADHD, Addiction, Anxiety, Depression, Eating Disorders, PTSD, Other (See Below) Other Psychiatric History: personality disorder Endocrine/Metabolic History: Reports: Hyperthyroidism Hematologic History: Reports: Anemia Dermatologic History: Reports: Other (See Below) Other Dermatologic History: acne - Infectious Disease History Infectious Disease History: Reports: Chicken Pox 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 - Past Surgical History GI Surgical History: Reports: Cholecystectomy Social & Family History - Tobacco Use Smoking Status *Q: Current Every Day Smoker Years of Tobacco use: 20 Packs/Tins Daily: 0.5 - Caffeine Use Caffeine Use: Reports: Coffee Other Caffeine Use: 12 cups per day Caffeine Use Comment: unable to assess due to pt condition - Recreational Drug Use Recreational Drug Use: No ED ROS GENERAL - Review of Systems Review Of Systems: Comprehensive ROS is negative, except as noted in HPI. ED EXAM, GENERAL - Physical Exam Exam: See Below Exam Limited By: No Limitations General Appearance: Alert, WD/WN, Moderate Distress (worse with swallowing ) Eye Exam: Bilateral Eye: EOMI Ears: Hearing Grossly Normal Ear Exam: Bilateral Ear: TM normal Nose: Normal Inspection Throat/Mouth: Inflammation (cryptic enlarged tonsills with erythema left worse than right. Large reactive lymph node left anterior superior neck vs inflammtion/infection. Uvula is midline. ) Head: Normocephalic Neck: Supple, Lymphadenopathy (L) Respiratory/Chest: No Respiratory Distress, Lungs Clear, Normal Breath Sounds, No Accessory Muscle Use, Chest Non-Tender Cardiovascular: Normal Peripheral Pulses, Regular Rate, Rhythm. No: Tachycardia GI/Abdominal: Normal Bowel Sounds, Soft (Female) Exam: Deferred Rectal (Female) Exam: Deferred Extremities: Normal Inspection, Normal Range of Motion, Non-Tender, Normal Capillary Refill, No Pedal Edema Neurological: Alert, Oriented, CN II-XII Intact, Normal Cognition, Normal Gait, Normal Reflexes, No Motor/Sensory Deficits Psychiatric: Normal Affect, Normal Mood Skin Exam: Warm, Dry, Intact, Normal Color, No Rash Lymphatic: Adenopathy (left anterior neck) Course - Vital Signs Last Recorded V/S: Last Vital Signs Temp 36.7 C 03/26/20 13:36 Pulse 84 03/26/20 13:36 Resp 16 03/26/20 13:36 BP 121/77 03/26/20 13:36 Pulse Ox 95 03/26/20 13:36 - Orders/Labs/Meds Orders: Active Orders 24 hr Category Date Time Status CULTURE STREP A CONFIRMATION [] Stat Lab 03/26/20 14:06 Results STREP SCRN A RAPID W CULT CONF [] Stat Lab 03/26/20 14:06 Results Sodium Chloride 0.9% [Normal Saline] 1,000 ml Med 03/26/20 15:00 Active IV ASDIRECTED Medication Orders Sodium Chloride (Normal Saline) 1,000 mls @ 500 mls/hr IV ASDIRECTED EDDIE Last Admin: 03/26/20 15:25 Dose: 500 mls/hr Documented by: CARIDAD Meds: Medications Generic Name Dose Route Start Last Admin Trade Name Freq PRN Reason Stop Dose Admin Sodium Chloride 1,000 mls @ 500 mls/hr 03/26/20 15:00 03/26/20 15:25 Normal Saline IV 500 mls/hr ASDIRECTED EDDIE Administration Discontinued Medications Generic Name Dose Route Start Last Admin Trade Name Freq PRN Reason Stop Dose Admin Hydrocodone Bitart/Acetaminophen 2 tab 03/26/20 14:55 03/26/20 15:24 Maud 325-5 Mg PO 03/26/20 14:56 2 tab ONETIME ONE Administration Dexamethasone 10 mg 03/26/20 14:55 03/26/20 15:24 Dexamethasone IVPUSH 03/26/20 14:56 10 mg ONETIME ONE Administration Doxycycline Hyclate 200 mg/ 250 mls @ 165 mls/hr 03/26/20 14:54 09/19/20 15:28 Sodium Chloride IV 03/26/20 16:24 165 mls/hr ONETIME ONE Administration - Re-Assessments/Exams Free Text/Narrative Re-Assessment/Exam: Rapid strep is negative. Examination concerning for jack-tonsillar cellulitis due to unilateral pain with swallowing slight trismus (pain opening mouth wide). Patient able open mouth the width of 2 fingers. No midline shift decreasing risk of peritonsillar abscess. IV access and initial dose of Doxycycline recommended for peritonsillar cellulitis to decreased risk of abscess. Decadron 10 mg IV for swelling and pain. Continue Ibuprofen for inflammation swelling and pain. Toradol consider but last Ibuprofen dose was 3 hours ago. 2 Tab Maud offered for pain control during ER visit. 03/26/20 15:22 IV access obtained. Patient hungry and significant other went to get food for pain. Pain and swelling is much improved. Patient requested a few Maud tablets for home use. 03/26/20 15:45 Departure - Departure Time of Disposition: 17:33 Disposition: Home, Self-Care 01 Clinical Impression: Acute sore throat, Peritonsillar cellulitis - Discharge Information Prescriptions: Naproxen [Naprosyn] 500 mg PO Q8H PRN 5 Days #30 tablet PRN Reason: swelling Acetaminophen/HYDROcodone [Maud 325-5 MG] 1 - 2 tab PO Q6H PRN 1 Days #4 tab PRN Reason: Pain (Severe 7-10) Doxycycline [Vibramycin] 100 mg PO BID 10 Days #20 cap Instructions: Peritonsillar Cellulitis, Sore Throat Referrals: PCP,None [Primary Care Provider] - Forms: ED Department Discharge Additional Instructions: 1. Increase fluid intake. 2. NAPROSYN (NAPROXEN) 500mg every 8 hours OR Ibuprofen 600-800mg every 6 hrs with food for fever, pain, swelling and inflammation. 3. Tylenol 500-1000mg every 6 hours for fever and pain OR Maud 1-2 tabs #4 tonight for severe pain. Caution use with additional mental health medications. 4. Call clinic Saturday at for recheck Saturday or Saturday to ensure improving. 5. If symptoms worsen or not improving, return to ER for repeat evaluation. Sepsis Event Note (ED) - Evaluation Sepsis Screening Result: No Definite Risk - Focused Exam Vital Signs: Vital Signs Temp Pulse Resp BP Pulse Ox 03/26/20 13:36 36.7 C 84 16 121/77 95 - My Orders Last 24 Hours: My Active Orders 03/26/20 14:06 CULTURE STREP A CONFIRMATION [RM] Stat STREP SCRN A RAPID W CULT CONF [RM] Stat 03/26/20 15:00 Sodium Chloride 0.9% [Normal Saline] 1,000 ml IV ASDIRECTED - Assessment/Plan Last 24 Hours: My Active Orders 03/26/20 14:06 CULTURE STREP A CONFIRMATION [RM] Stat STREP SCRN A RAPID W CULT CONF [RM] Stat 03/26/20 15:00 Sodium Chloride 0.9% [Normal Saline] 1,000 ml IV ASDIRECTED
[2020-03-26] MEDS ORDERED: Doxycycline 200 MG in Sodium Chloride 0.9% 250 ML IV ONE (14:54)
[2020-03-26] MEDS ORDERED: Acetaminophen/HYDROcodone 325-5 MG Tab PO ONE (14:55)
[2020-03-26] MEDS ORDERED: Dexamethasone 4 MG/ML SDV IVPUSH ONE (14:55)
[2020-03-26] MEDS ORDERED: Sodium Chloride 0.9% 1,000 ML IV SCH (15:00)
== END 2020-03-26 18:13 | disposition home or self-care (01) ==
LOC: JP.ED 13:28
DX: J36 Peritonsillar abscess (principal); U07.1 COVID-19; J45.909 Unspecified asthma, uncomplicated; F41.9 Anxiety disorder, unspecified; F32.9 Major depressive disorder, single episode, unspecified; G43.909 Migraine, unspecified, not intractable, without status migrainosus; F90.9 Attention-deficit hyperactivity disorder, unspecified type; F17.210 Nicotine dependence, cigarettes, uncomplicated; Z91.048 Other nonmedicinal substance allergy status; Z79.899 Other long term (current) drug therapy
CPT/HCPCS: 87081; 87880; 96361; 96365; 96366; 96375; 99283; A9270; J1100; J3490; J7030; J7050

== ENCOUNTER 2020-04-22 19:05 | Emergency (ER) | payer MEDICAID ==
[2020-04-22] MEDS ORDERED: Ketorolac 30 MG/ML SDV IVPUSH ONE (19:32)
[2020-04-22] MEDS ORDERED: Sodium Chloride 0.9% 10 ML Syringe FLUSH PRN (19:32)
[2020-04-22] MEDS ORDERED: Dexamethasone 4 MG/ML SDV IVPUSH ONE (19:32)
[2020-04-22] MEDS ORDERED: cefTRIAXone 1 GM in Sodium Chloride 0.9% 50 ML IV ONE (19:32)
--- NOTE | 2020-04-22 19:43 | EDM.PDOC ---
ED HPI GENERAL MEDICAL PROBLEM - General Chief Complaint: ENT Problem Stated Complaint: TOOTH PAIN Time Seen by Provider: 04/22/20 19:29 - History of Present Illness INITIAL COMMENTS - FREE TEXT/NARRATIVE: Yamilka is a 39-year-old female who is well-known to the emergency room who presents for increasing throat pain, swelling, and difficulty swallowing over the last couple of days. She states that she has been having a fever at home as high as 103 F. She was treated on 03/26/2020 for a peritonsillar abscess receiving IV Rocephin, Toradol, and sent out on doxycycline and naproxen. Does not appear that she has had any follow-up and returns with recurrence of the symptoms. The patient states that has been very difficult to eat or drink anything due to the pain. She is complaining of swelling into the neck. She states that she has been taking ibuprofen at home which takes the edge off but does not take the pain away. She does report that she took a shot of vodka to help dull the pain. Left Throat Pain Score (Numeric/FACES): 8 - Related Data Allergies Allergy/AdvReac Type Severity Reaction Status Date / Time iron Allergy Cannot Verified 04/22/20 19:23 Remember Home Meds: Home Meds Amphetamine/Dextroamphetamine [Adderall] 7.5 mg PO BID 09/23/19 [History] Cyclobenzaprine [Flexeril] 10 mg PO BEDTIME 09/23/19 [History] Gabapentin [Neurontin] 600 mg PO TID 09/23/19 [History] SUMAtriptan 100 mg PO ASDIRECTED PRN 09/23/19 [History] Sertraline HCl 100 mg PO DAILY 09/23/19 [History] Spironolactone [Aldactone] 100 mg PO DAILY 09/23/19 [History] buPROPion [Wellbutrin SR] 150 mg PO BID 09/23/19 [History] hydrOXYzine HCL [Hydroxyzine HCl] 10 mg PO ASDIRECTED PRN 09/23/19 [History] traZODone 200 mg PO BEDTIME 09/23/19 [History] diazePAM [Valium] 5 mg PO ASDIRECTED 10/12/19 [History] ARIPiprazole [Abilify] 2 mg PO DAILY 01/31/20 [History] Acetaminophen/HYDROcodone [[place] 325-5 MG] 1 - 2 tab PO Q6H PRN 1 Days #4 tab 03/26/20 [Rx] Doxycycline [Vibramycin] 100 mg PO BID 10 Days #20 cap 03/26/20 [Rx] Fluconazole [Diflucan] 150 mg PO Q72H #2 tablet 03/26/20 [Rx] Naproxen [Naprosyn] 500 mg PO Q8H PRN 5 Days #30 tablet 03/26/20 [Rx] Past Medical History HEENT History: Reports: Allergic Rhinitis Cardiovascular History: Reports: Other (See Below) Other Cardiovascular History: POTS Respiratory History: Reports: Asthma Gastrointestinal History: Reports: Celiac Disease, GERD Genitourinary History: Reports: UTI, Recurrent 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 (See Below) 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 ACCESS 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 History: abnormal pap but never followed up on it Musculoskeletal History: Reports: Back Pain, Chronic Neurological History: Reports: Migraines, Other (See Below) Other Neuro History: insomnia Psychiatric History: Reports: ADHD, Addiction, Anxiety, Depression, Eating Disorders, PTSD, Other (See Below) Other Psychiatric History: personality disorder Endocrine/Metabolic History: Reports: Hyperthyroidism Hematologic History: Reports: Anemia Dermatologic History: Reports: Other (See Below) Other Dermatologic History: acne - Infectious Disease History Infectious Disease History: Reports: Chicken Pox 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 - Past Surgical History GI Surgical History: Reports: Cholecystectomy Social & Family History - Tobacco Use Tobacco Use Status *Q: Current Every Day Tobacco User Years of Tobacco use: 20 Packs/Tins Daily: 0.5 - Caffeine Use Caffeine Use: Reports: Soda Other Caffeine Use: 12 cups per day Caffeine Use Comment: unable to assess due to pt condition - Alcohol Use Days Per Week of Alcohol Use: 7 Number of Drinks Per Day: 1 Total Drinks Per Week: 7 - Recreational Drug Use Recreational Drug Use: No ED ROS ENT - Review of Systems Review Of Systems: See Below Constitutional: Reports: Fever, Chills, Malaise, Decreased Appetite HEENT: Reports: Throat Pain, Throat Swelling, Other (Difficulty swallowing) Respiratory: Reports: No Symptoms ED EXAM, ENT - Physical Exam Exam: See Below Exam Limited By: No Limitations General Appearance: Alert, Mild Distress Mouth/Throat: Pharyngeal Erythema, Throat Swelling, Tonsillar Erythema, Tonsillar Exudates, Tonsillar Swelling Head: Atraumatic, Normocephalic Neck: Full Range of Motion, Lymphadenopathy (L), Tender Lateral Respiratory/Chest: No Respiratory Distress, Lungs Clear, Normal Breath Sounds, No Accessory Muscle Use, Chest Non-Tender Psychiatric: Anxious, Other (Belligerent and accusatory) Course - Vital Signs Last Recorded V/S: Last Vital Signs Temp 36.9 C 04/22/20 19:29 Pulse 102 H 04/22/20 19:29 Resp 18 04/22/20 19:29 BP 140/87 04/22/20 19:29 Pulse Ox 97 04/22/20 19:29 - Orders/Labs/Meds Orders: Active Orders 24 hr Category Date Time Status C-REACTIVE PROTEIN [CHEM] Stat Lab 04/22/20 19:32 Ordered CBC WITH AUTO DIFF [HEME] Stat Lab 04/22/20 19:32 Ordered STREP SCRN A RAPID W CULT CONF [RM] Stat Lab 04/22/20 19:32 Ordered Sodium Chloride 0.9% [Saline Flush] Med 04/22/20 19:32 Ordered 10 ml FLUSH ASDIRECTED PRN cefTRIAXone [Rocephin] 1 gm Med 04/22/20 19:32 Ordered Sodium Chloride 0.9% [Normal Saline] 50 ml IV ONETIME Saline Lock Insert [OM.PC] Routine Oth 04/22/20 19:32 Ordered Medication Orders Ceftriaxone Sodium 1 gm/ (Sodium Chloride) 50 mls @ 100 mls/hr IV ONETIME ONE Stop: 04/22/20 20:01 Sodium Chloride (Saline Flush) 10 ml FLUSH ASDIRECTED PRN PRN Reason: Keep Vein Open Meds: Medications Generic Name Dose Route Start Last Admin Trade Name Freq PRN Reason Stop Dose Admin Ceftriaxone Sodium 1 gm/ 50 mls @ 100 mls/hr 04/22/20 19:32 Sodium Chloride IV 04/22/20 20:01 ONETIME ONE Sodium Chloride 10 ml 04/22/20 19:32 Saline Flush FLUSH ASDIRECTED PRN Keep Vein Open Discontinued Medications Generic Name Dose Route Start Last Admin Trade Name Freq PRN Reason Stop Dose Admin Dexamethasone 10 mg 04/22/20 19:32 Dexamethasone IVPUSH 04/22/20 19:33 ONETIME ONE Ketorolac Tromethamine 30 mg 04/22/20 19:32 Toradol IVPUSH 04/22/20 19:33 ONETIME ONE - Re-Assessments/Exams Free Text/Narrative Re-Assessment/Exam: 04/22/20 19:43 patient became very belligerent with staff based on what I had prescribed for her. She stated that she would only take the treatment that was given to her in her last visit which was exactly the same treatment I was doing today. She was adamant that I give her a narcotic pain medicine. I did record both conversations when I first met with her and when we confronted when she was belligerent with my staff. I told her that this would not be tolerated and if she did not like what I was providing she was free to leave. The patient became very belligerent and controlled confrontational with me. Again I did a audio recording of this which I have archived. I told her that if she continued to amplify we would call line for cement and have her trespassed. The patient continued to have verbal encounters with myself but did leave. Departure - Departure Time of Disposition: 19:46 Disposition: Eloped 07 Clinical Impression: Peritonsillar abscess, Eloped from emergency department - Discharge Information *PRESCRIPTION DRUG MONITORING PROGRAM REVIEWED*: Yes *COPY OF PRESCRIPTION DRUG MONITORING REPORT IN PATIENT OLENA: No Referrals: Sunitha Mitchell DO [Primary Care Provider] - Sepsis Event Note (ED) - Evaluation Sepsis Screening Result: Possible Sepsis Risk - Focused Exam Vital Signs: Vital Signs Temp Pulse Resp BP Pulse Ox 04/22/20 19:29 36.9 C 102 H 18 140/87 97 - Problem List & Annotations (1) Peritonsillar abscess SNOMED Code(s): 84448565 Code(s): J36 - PERITONSILLAR ABSCESS Status: Acute Priority: Low Current Visit: Yes - Problem List Review Problem List Initiated/Reviewed/Updated: Yes - My Orders Last 24 Hours: My Active Orders 04/22/20 19:32 C-REACTIVE PROTEIN [CHEM] Stat CBC WITH AUTO DIFF [HEME] Stat STREP SCRN A RAPID W CULT CONF [RM] Stat Sodium Chloride 0.9% [Saline Flush] 10 ml FLUSH ASDIRECTED PRN cefTRIAXone [Rocephin] 1 gm Sodium Chloride 0.9% [Normal Saline] 50 ml IV ONETIME Saline Lock Insert [OM.PC] Routine - Assessment/Plan Last 24 Hours: My Active Orders 04/22/20 19:32 C-REACTIVE PROTEIN [CHEM] Stat CBC WITH AUTO DIFF [HEME] Stat STREP SCRN A RAPID W CULT CONF [RM] Stat Sodium Chloride 0.9% [Saline Flush] 10 ml FLUSH ASDIRECTED PRN cefTRIAXone [Rocephin] 1 gm Sodium Chloride 0.9% [Normal Saline] 50 ml IV ONETIME Saline Lock Insert [OM.PC] Routine
== END 2020-04-22 19:49 | disposition left against medical advice (07) ==
LOC: JP.ED 19:05
DX: J36 Peritonsillar abscess (principal); J45.909 Unspecified asthma, uncomplicated; F41.9 Anxiety disorder, unspecified; F32.9 Major depressive disorder, single episode, unspecified; F17.210 Nicotine dependence, cigarettes, uncomplicated; Z90.49 Acquired absence of other specified parts of digestive tract; Z91.09 Other allergy status, other than to drugs and biological substances; Z79.899 Other long term (current) drug therapy
CPT/HCPCS: 99284

== ENCOUNTER 2020-09-07 00:57 | Emergency (ER) | payer MEDICAID ==
[2020-09-07] MEDS ORDERED: SUMAtriptan 50 MG Tab PO ONE (01:37)
--- NOTE | 2020-09-07 01:47 | EDM.PDOC ---
ED HPI GENERAL MEDICAL PROBLEM - General Chief Complaint: Abdominal Pain Stated Complaint: VOMITING/ABD PAIN Time Seen by Provider: 09/07/20 01:20 Source of Information: Reports: Patient History Limitations: Reports: No Limitations (She can take 11 rhythm further) - History of Present Illness INITIAL COMMENTS - FREE TEXT/NARRATIVE: 40-year-old female complaining of abdominal distention, discomfort, and constipation for the last 1 to 2 weeks. She has had several work-ups in the clinic including numerous labs and an x-ray, and was advised to take some laxatives. She is doing that on a regular basis and has had some loose stools but nothing else. She feels bloated, she is taking simethicone on a regular basis. No fevers or chills, she is persistently nauseated but no vomiting. She was started on Suboxone therapy a few weeks ago but stopped them because it was bothering her stomach so much and causing constipation. Onset: Gradual Duration: Week(s): (Up to 2 weeks) Location: Reports: Abdomen Associated Symptoms: Reports: Headaches, Nausea/Vomiting Right Lower Abdomen Pain Score (Numeric/FACES): 8 - Related Data Allergies Allergy/AdvReac Type Severity Reaction Status Date / Time iron Allergy Cannot Verified 09/07/20 03:04 Remember Home Meds: Home Meds Amphetamine/Dextroamphetamine [Adderall] 7.5 mg PO BID 09/23/19 [History] Cyclobenzaprine [Flexeril] 10 mg PO BEDTIME 09/23/19 [History] Gabapentin [Neurontin] 600 mg PO TID 09/23/19 [History] SUMAtriptan 100 mg PO ASDIRECTED PRN 09/23/19 [History] Sertraline HCl 100 mg PO DAILY 09/23/19 [History] Spironolactone [Aldactone] 100 mg PO DAILY 09/23/19 [History] buPROPion [Wellbutrin SR] 150 mg PO BID 09/23/19 [History] hydrOXYzine HCL [Hydroxyzine HCl] 10 mg PO ASDIRECTED PRN 09/23/19 [History] traZODone 200 mg PO BEDTIME 09/23/19 [History] diazePAM [Valium] 5 mg PO ASDIRECTED 10/12/19 [History] ARIPiprazole [Abilify] 2 mg PO DAILY 01/31/20 [History] Acetaminophen/HYDROcodone [[place] 325-5 MG] 1 - 2 tab PO Q6H PRN 1 Days #4 tab 03/26/20 [Rx] Doxycycline [Vibramycin] 100 mg PO BID 10 Days #20 cap 03/26/20 [Rx] Fluconazole [Diflucan] 150 mg PO Q72H #2 tablet 03/26/20 [Rx] Naproxen [Naprosyn] 500 mg PO Q8H PRN 5 Days #30 tablet 03/26/20 [Rx] Past Medical History HEENT History: Reports: Allergic Rhinitis Cardiovascular History: Reports: Other (See Below) Other Cardiovascular History: POTS Respiratory History: Reports: Asthma Gastrointestinal History: Reports: Celiac Disease, GERD Genitourinary History: Reports: UTI, Recurrent 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: abnormal pap but never followed up on it Musculoskeletal History: Reports: Back Pain, Chronic Neurological History: Reports: Migraines, Other (See Below) Other Neuro History: insomnia Psychiatric History: Reports: ADHD, Addiction, Anxiety, Depression, Eating Disorders, PTSD, Other (See Below) Other Psychiatric History: personality disorder Endocrine/Metabolic History: Reports: Hyperthyroidism Hematologic History: Reports: Anemia Dermatologic History: Reports: Other (See Below) Other Dermatologic History: acne - Infectious Disease History Infectious Disease History: Reports: Chicken Pox 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 - Past Surgical History GI Surgical History: Reports: Cholecystectomy Social & Family History - Family History Family Medical History: No Pertinent Family History - Tobacco Use Tobacco Use Status *Q: Current Some Day Tobacco User Years of Tobacco use: 20 Packs/Tins Daily: 0.5 - Caffeine Use Caffeine Use: Reports: Coffee, Energy Drinks, Soda, Tea Other Caffeine Use: 12 cups per day Caffeine Use Comment: unable to assess due to pt condition - Recreational Drug Use Recreational Drug Use: Yes Recreational Drug Type: Reports: Other (see below) Other Recreational Drug Type: pain medication Recreational Drug Use Frequency: Patient Refuses To Answer ED ROS GENERAL - Review of Systems Review Of Systems: See Below Constitutional: Reports: Malaise. 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 Denies: Vomiting : Reports: No Symptoms Skin: Reports: No Symptoms Neurological: Reports: Headache ED EXAM, GI/ABD - Physical Exam Exam: See Below Exam Limited By: No Limitations General Appearance: Alert, No Apparent Distress Eyes: Bilateral: Normal Appearance (No jaundice) Head: Atraumatic Neck: Supple, Non-Tender Respiratory/Chest: Lungs Clear GI/Abdominal Exam: Normal Bowel Sounds, Soft, Tender (Reacts with tenderness to palpation across the mid to lower abdomen bilaterally, no focal guarding) Rectal (Female) Exam: Normal Exam, Other (Rectal exam is completely normal, no stool is present) Neurological: Alert, Oriented Course - Vital Signs Last Recorded V/S: Last Vital Signs Temp 97.0 F 09/07/20 01:38 Pulse 80 09/07/20 01:38 Resp 16 09/07/20 01:38 BP 157/74 H 09/07/20 01:38 Pulse Ox 97 09/07/20 01:38 - Orders/Labs/Meds Meds: Medications Discontinued Medications Generic Name Dose Route Start Last Admin Trade Name Meghan PRN Reason Stop Dose Admin Sumatriptan Succinate 50 mg 09/07/20 01:37 09/07/20 01:46 Imitrex PO 09/07/20 01:38 50 mg ONETIME ONE Administration - Re-Assessments/Exams Free Text/Narrative Re-Assessment/Exam: 09/07/20 01:46 Labs from the clinic just 2 days ago were reviewed, do not need repeating. She also had a test and a UA which was normal. I think she is overmedicating herself, we will run her through the CT of the abdomen and pelvis with no contrast to make sure were not missing anything. 09/07/20 02:39 CT scan showed a full stomach and some fluid-filled small bowel but no significant constipation, inflammation or obstructive pattern. Patient was encouraged to stop all laxatives for the next 3 to 4 days and recheck next week if not improving. 09/07/20 02:41 [id number] ultrasound was done and showed no ascites Departure - Departure Time of Disposition: 03:04 Disposition: Home, Self-Care 01 Clinical Impression: Abdominal bloating Constipation Qualifiers: Constipation type: drug induced constipation Qualified Code(s): K59.03 - Drug induced constipation - Discharge Information Instructions: Abdominal Bloating Referrals: Sunitha Micthell DO [Primary Care Provider] - Forms: ED Department Discharge Care Plan Goals: Stop all laxatives and stomach medications for the next 4 days and try to let your bowels reset themselves naturally. Recheck next week if not improving satisfactorily. Sepsis Event Note (ED) - Focused Exam Vital Signs: Vital Signs Temp Pulse Resp BP Pulse Ox 09/07/20 01:38 97.0 F 80 16 157/74 H 97
--- NOTE | 2020-09-07 02:56 | CRLCT ---
INDICATION: Abdominal pain. Previous history of cholecystectomy and lysis of adhesions. COMPARISON: None available TECHNIQUE: CT examination of the abdomen and pelvis was performed without contrast enhancement using 3 mm thick axial sections from the lung bases through the pubic symphysis. Oral contrast was not administered. Please note that all CT scans at this facility use dose modulation, iterative reconstruction, and/or weight-based dosing when appropriate to reduce radiation dose to as low as reasonably achievable. FINDINGS: In the abdomen, the unenhanced liver, spleen, pancreas, and adrenals are normal in appearance. The unenhanced kidneys are normal in appearance. Clips are seen in the gall bladder fossa from cholecystectomy. There is no sign of biliary ductal dilatation. The abdominal aorta is normal in caliber with no sign of dilatation. There is no sign of retroperitoneal mass or adenopathy. The stomach, loops of small bowel, and colon in the abdomen are normal in appearance. In the pelvis, the retrocecal appendix is normal in appearance with no sign of inflammatory process. The loops of small bowel and colon in the pelvis are normal in appearance. There is a 2.2 centimeter low-density region in the left ovary, probably a cyst. The uterus and right adnexal region are normal in appearance. The urinary bladder is normal in appearance. There is no sign of pelvic or inguinal mass or adenopathy. There is no sign of free air or free fluid in the abdomen or pelvis. The lung bases are clear. The osseous structures are normal in appearance for the patient`s age. IMPRESSION: Nothing seen to explain the patient`s abdominal pain. Normal CT of the abdomen without contrast status post cholecystectomy. CT of the pelvis shows a 2.2 centimeter probable left ovarian cyst. Please note that all CT scans at this facility use dose modulation, iterative reconstruction, and/or weight-based dosing when appropriate to reduce radiation dose to as low as reasonably achievable. Dictated by Meño Ivy MD @ Sep 07 2020 2:49AM Signed by Dr. Meño Ivy @ Sep 07 2020 2:55AM
== END 2020-09-07 03:11 | disposition home or self-care (01) ==
LOC: JP.ED 00:57
DX: K59.03 Drug induced constipation (principal); R14.0 Abdominal distension (gaseous); J45.909 Unspecified asthma, uncomplicated; Z79.899 Other long term (current) drug therapy; Z91.048 Other nonmedicinal substance allergy status; Z72.0 Tobacco use
CPT/HCPCS: 74176; 99284; A9270

== ENCOUNTER 2023-02-03 23:32 | Inpatient (IN) | payer MEDICAID ==
[2023-02-03] MEDS ORDERED: Sodium Chloride 0.9% 1,000 ML IV ONE (23:59)
[2023-02-03] MEDS ORDERED: Sodium Chloride 0.9% 10 ML Syringe FLUSH PRN (23:59)
[2023-02-04] MEDS ORDERED: LORazepam 1 MG Tab PO ONE (00:17)
[2023-02-04] MEDS ORDERED: PHENobarbital Sodium 65 MG/ML SDV IVPUSH ONE (00:19)
[2023-02-04 00:27] LABS: BASOPHILS ABSOLUTE AUTO 0.04 K/uL (0.00-0.10); BASOPHILS PERCENT AUTO 0.5 % (0.1-1.3); EOSINOPHILS ABSOLUTE AUTO 0.06 K/uL (0.00-0.40); EOSINOPHILS PERCENT AUTO 0.8 % (0.0-5.4); HEMATOCRIT 34.7 % (34.3-46.0); HEMOGLOBIN 11.6 g/dL (11.2-15.5); IMMATURE GRAN ABSOLUTE AUTO 0.03 K/uL (0.00-0.23); IMMATURE GRAN PERCENT AUTO 0.4 % (0.0-0.7); LYMPHOCYTES ABSOLUTE AUTO 3.13 K/uL (0.8-3.3); LYMPHOCYTES PERCENT AUTO 39.5 % (11.4-47.7); MEAN CORPUSCULAR HEMOGLOBIN 28.9 pg (31.6-35.5); MEAN CORPUSCULAR HGB CONC 33.4 g/dL (31.6-35.5); MEAN CORPUSCULAR VOLUME 86.5 fL (81.4-99.0); MONOCYTES ABSOLUTE AUTO 0.66 K/uL (0.20-0.90); MONOCYTES PERCENT AUTO 8.3 % (3.3-12.6); NEUTROPHILS PERCENT AUTO 50.5 % (40.0-78.1); PLATELET COUNT,PLT 411 K/uL (130-375); RED BLOOD CELL COUNT 4.01 M/uL (3.77-5.24); WHITE BLOOD CELL COUNT,WBC 7.9 K/uL (3.2-11.0)
[2023-02-04 00:28] LABS: BASE EXCESS VENOUS -0.9 mm/L; BICARBONATE,VENOUS 23.3 mmol/L; CARBOXYHEMOGLOBIN 2.7 % (0.0-1.6); METHEMOGLOBIN 0.5 %; O2 SATURATION VENOUS 95.1; OXYHEMOGLOBIN 92.1 %; PCO2 VENOUS 38.7 mm/Hg; PH,VENOUS 7.396 (7.350-7.450); PO2 VENOUS 81.2 mm/Hg; TOTAL HEMOGLOBIN 11.7 g/dL (12.0-16.0)
[2023-02-04 00:45] LABS: A/G RATIO 0.8 (1.2-2.2); ALANINE AMINOTRANSFERASE,ALT 58 U/L (12-78); ALKALINE PHOSPHATASE 87 U/L (46-116); ASPARTATE AMNIOTRANSFERASE,AST 55 U/L (15-37); BLOOD UREA NITROGEN,BUN 8 mg/dL (7-18); CALCIUM 8.6 mg/dL (8.5-10.1); CARBON DIOXIDE,CO2 22 mmol/L (21-32); CHLORIDE,CL 109 mmol/L (100-108); CREATININE 0.8 mg/dL (0.6-1.0); ESTIMATED GFR 95 mL/min (>60); GLUCOSE RANDOM 108 mg/dL (74-106); POTASSIUM,K 3.8 mmol/L (3.6-5.2); PROTEIN TOTAL,TP 6.8 g/dL (6.4-8.2); SODIUM,NA 148 mmol/L (140-148)
[2023-02-04] MEDS ORDERED: Sodium Bicarbonate 8.4% 50 MEQ/50 ML Syringe IVPUSH ONE (00:46)
[2023-02-04] MEDS ORDERED: Sodium Bicarbonate 150 MEQ in Dextrose 5% in Water 100 ML IV ONE ×2 (00:47)
[2023-02-04 00:49] LABS: T4 FREE 0.95 ng/dL (0.76-1.46); TSH ULTRASENSITIVE 0.461 uIU/mL (0.358-3.740)
[2023-02-04] MEDS ORDERED: Prochlorperazine 10 MG/2 ML SDV IVPUSH ONE (00:49)
[2023-02-04 00:51] LABS: ANION GAP 20.8 mmol/L (5.0-14.0); BILIRUBIN TOTAL < 0.1 mg/dL (0.2-1.0)
[2023-02-04 00:51] LABS: AMPHETAMINES SCREEN, URINE NEGATIVE (NEGATIVE); BARBITURATE SCREEN,URINE NEGATIVE (NEGATIVE); BENZODIAZEPINES SCREEN,URINE PRESUMPTIVE POSITIVE (NEGATIVE); METHADONE SCREEN, URINE NEGATIVE (NEGATIVE); METHAMPHETAMINES SCREEN, URINE NEGATIVE (NEGATIVE); OXYCODONE SCREEN,URINE NEGATIVE (NEGATIVE); PROPOXYPHENE SCREEN,URINE NEGATIVE (NEGATIVE); THC SCREEN,URINE 50 NG/ML NEGATIVE (NEGATIVE)
[2023-02-04] MEDS ORDERED: Sodium Bicarbonate 8.4% 50 MEQ/50 ML Syringe ONE (01:00)
[2023-02-04] MEDS ORDERED: Dextrose 5% in Water 250 ML ONE (01:02)
[2023-02-04] MEDS ORDERED: Sodium Bicarbonate 150 MEQ in Dextrose 5% in Water 1,000 ML IV ONE ×2 (01:47)
[2023-02-04 02:02] LABS: BASE EXCESS VENOUS -0.2 mm/L; BICARBONATE,VENOUS 22.9 mmol/L; METHEMOGLOBIN 1.3 %; O2 SATURATION VENOUS 93.1; PCO2 VENOUS 33.6 mm/Hg; PH,VENOUS 7.448 (7.350-7.450); PO2 VENOUS 70.3 mm/Hg; TOTAL HEMOGLOBIN 11.3 g/dL (12.0-16.0)
[2023-02-04] MEDS ORDERED: Sodium Chloride 0.9% 1,000 ML IV SCH (03:41)
[2023-02-04] MEDS ORDERED: Magnesium Hydroxide 400 MG/5 ML Susp 30 ML Cup PO PRN (03:41)
[2023-02-04] MEDS ORDERED: Sennosides/Docusate Sodium 50-8.6 MG Tab PO PRN (03:41)
[2023-02-04] MEDS ORDERED: Potassium Chloride 20 MEQ Tab.ER PO ONE ×2 (03:41→09:00)
[2023-02-04] MEDS ORDERED: Sodium Bicarbonate 150 MEQ in Sodium Chloride 0.9% 1,000 ML IV SCH (06:38)
[2023-02-04] MEDS: SODIUM CHLORIDE 0.9% IV SCH ×6 (07:56→20:53)
[2023-02-04] MEDS: SODIUM BICARBONATE IV SCH ×6 (07:56→20:53)
[2023-02-04] MEDS: Folic Acid 1 MG Tab PO SCH (08:05)
[2023-02-04] MEDS: Thiamine 100 MG Tab PO SCH (08:05)
[2023-02-04] MEDS: LORazepam 1 MG Tab PO SCH ×4 (08:31→15:09)
[2023-02-04] MEDS: LORazepam 2 MG/ML SDV IV SCH ×3 (16:11→21:36)
[2023-02-04] MEDS: Ondansetron 4 MG/2 ML SDV IV PRN (16:23)
[2023-02-04] MEDS: PHENobarbital Sodium 65 MG/ML SDV IVPUSH PRN ×2 (20:04→22:40)
[2023-02-05] MEDS: LORazepam 2 MG/ML SDV IV SCH ×9 (00:57→23:54)
[2023-02-05] MEDS: SODIUM CHLORIDE 0.9% IV SCH ×4 (01:53→22:36)
[2023-02-05] MEDS: SODIUM BICARBONATE IV SCH ×4 (01:53→22:36)
[2023-02-05] MEDS: PHENobarbital Sodium 65 MG/ML SDV IVPUSH PRN ×6 (02:04→22:15)
[2023-02-05 07:44] LABS: CALCIUM 8.3 mg/dL (8.5-10.1); CREATININE 0.8 mg/dL (0.6-1.0); EST CRCL DRUG DOSING (CG) 94.3 mL/min; POTASSIUM,K 3.4 mmol/L (3.6-5.2)
[2023-02-05 08:29] LABS: ANION GAP 14.4 mmol/L (5.0-14.0)
[2023-02-05] MEDS: Thiamine 100 MG Tab PO SCH (08:51)
[2023-02-05] MEDS: Folic Acid 1 MG Tab PO SCH (08:51)
[2023-02-05] MEDS ORDERED: Potassium Chloride 20 MEQ Tab.ER PO ONE ×2 (10:40→13:00)
[2023-02-06] MEDS: Acetaminophen 325 MG Tab PO PRN (00:41)
[2023-02-06] MEDS: LORazepam 2 MG/ML SDV IV SCH ×9 (00:42→23:21)
[2023-02-06] MEDS: Ondansetron 4 MG/2 ML SDV IV PRN (07:20)
[2023-02-06 07:28] LABS: CALCIUM 8.9 mg/dL (8.5-10.1); CREATININE 0.7 mg/dL (0.6-1.0); EST CRCL DRUG DOSING (CG) 107.77 mL/min; POTASSIUM,K 4.9 mmol/L (3.6-5.2)
[2023-02-06 07:29] LABS: ANION GAP 14.9 mmol/L (5.0-14.0)
[2023-02-06] MEDS: Folic Acid 1 MG Tab PO SCH (09:57)
[2023-02-06] MEDS: Thiamine 100 MG Tab PO SCH (09:57)
[2023-02-06] MEDS: LORazepam 1 MG Tab PO SCH ×2 (10:06→12:00)
[2023-02-06] MEDS: Levothyroxine 25 MCG Tab PO SCH (16:14)
[2023-02-06] MEDS: Liraglutide (rDNA Origin) 0.6 MG/0.1 ML 3 ML Pen SUBCUT SCH (20:03)
[2023-02-07] MEDS: Acetaminophen 325 MG Tab PO PRN (00:18)
[2023-02-07] MEDS: LORazepam 2 MG/ML SDV IV SCH (00:18)
[2023-02-07] MEDS: LORazepam 1 MG Tab PO SCH ×8 (01:16→19:54)
[2023-02-07] MEDS: Ondansetron 4 MG Tab.DIS PO PRN ×2 (01:53→21:33)
[2023-02-07] MEDS: Levothyroxine 25 MCG Tab PO SCH (07:55)
[2023-02-07] MEDS: Folic Acid 1 MG Tab PO SCH (09:07)
[2023-02-07] MEDS: Thiamine 100 MG Tab PO SCH (09:07)
[2023-02-07] MEDS ORDERED: Ketorolac 10 MG Tab PO PRN (19:20)
[2023-02-07] MEDS: Liraglutide (rDNA Origin) 0.6 MG/0.1 ML 3 ML Pen SUBCUT SCH (20:45)
[2023-02-08] MEDS: LORazepam 1 MG Tab PO SCH ×2 (00:59→04:05)
[2023-02-08] MEDS: Levothyroxine 25 MCG Tab PO SCH (07:56)
[2023-02-08] MEDS: Thiamine 100 MG Tab PO SCH (08:04)
[2023-02-08] MEDS: Folic Acid 1 MG Tab PO SCH (08:04)
== END 2023-02-08 17:15 | disposition home or self-care (01) | DRG 918 ==
LOC: JP.ED 23:32 → JP.ICU 02-04 03:01
PROVIDERS: ADMIT Internal Medicine; ATTEND Hospitalist
DX: T43.222A Poisoning by selective serotonin reuptake inhibitors, intentional self-harm, initial encounter (principal); F10.121 Alcohol abuse with intoxication delirium; F10.131 Alcohol abuse with withdrawal delirium; T39.012A Poisoning by aspirin, intentional self-harm, initial encounter; F32.A Depression, unspecified; J45.909 Unspecified asthma, uncomplicated; K21.9 Gastro-esophageal reflux disease without esophagitis; G43.909 Migraine, unspecified, not intractable, without status migrainosus; E05.90 Thyrotoxicosis, unspecified without thyrotoxic crisis or storm; D64.9 Anemia, unspecified; Z20.822 Contact with and (suspected) exposure to COVID-19; F41.1 Generalized anxiety disorder; F43.0 Acute stress reaction; F43.10 Post-traumatic stress disorder, unspecified; R94.31 Abnormal electrocardiogram [ECG] [EKG]; F90.9 Attention-deficit hyperactivity disorder, unspecified type; G89.29 Other chronic pain; M54.9 Dorsalgia, unspecified; F19.10 Other psychoactive substance abuse, uncomplicated; F60.9 Personality disorder, unspecified; Z86.16 Personal history of COVID-19; Z87.440 Personal history of urinary (tract) infections; Z90.49 Acquired absence of other specified parts of digestive tract; Z98.890 Other specified postprocedural states; Z86.59 Personal history of other mental and behavioral disorders; Z87.898 Personal history of other specified conditions; Z88.8 Allergy status to other drugs, medicaments and biological substances; Z79.899 Other long term (current) drug therapy
CPT/HCPCS: 36415; 80048; 80053; 80143; 80179; 80305-QW; 80307; 82803; 82947; 83735; 84132; 84439; 84443; 84703; 85025; 93005; 93010; 96361; 96374; 96375; 96376; 99222; 99232; 99233; 99238; 99285; 99285-25; A9270-GY; J0780; J2060; J2405; J2560; J3490; J7030; Q0162; U0002

== ENCOUNTER 2023-02-12 02:40 | Emergency (ER) | payer MEDICAID ==
[2023-02-12 03:05] LABS: BASE EXCESS VENOUS 1.7 mm/L; BASOPHILS ABSOLUTE AUTO 0.03 K/uL (0.00-0.10); BASOPHILS PERCENT AUTO 0.3 % (0.1-1.3); BICARBONATE,VENOUS 24.9 mmol/L; CARBOXYHEMOGLOBIN 2.1 % (0.0-1.6); EOSINOPHILS PERCENT AUTO 0.2 % (0.0-5.4); HEMATOCRIT 37.5 % (34.3-46.0); HEMOGLOBIN 12.8 g/dL (11.2-15.5); IMMATURE GRAN ABSOLUTE AUTO 0.03 K/uL (0.00-0.23); IMMATURE GRAN PERCENT AUTO 0.3 % (0.0-0.7); LYMPHOCYTES ABSOLUTE AUTO 3.57 K/uL (0.8-3.3); LYMPHOCYTES PERCENT AUTO 37.4 % (11.4-47.7); MEAN CORPUSCULAR HEMOGLOBIN 28.6 pg (31.6-35.5); MEAN CORPUSCULAR HGB CONC 34.1 g/dL (31.6-35.5); MEAN CORPUSCULAR VOLUME 83.7 fL (81.4-99.0); METHEMOGLOBIN 1.1 %; MONOCYTES ABSOLUTE AUTO 0.68 K/uL (0.20-0.90); MONOCYTES PERCENT AUTO 7.1 % (3.3-12.6); NEUTROPHILS ABSOLUTE AUTO 5.21 K/uL (1.0-7.6); NEUTROPHILS PERCENT AUTO 54.7 % (40.0-78.1); O2 SATURATION VENOUS 83.6; OXYHEMOGLOBIN 80.9 %; PCO2 VENOUS 35.9 mm/Hg; PH,VENOUS 7.455 (7.350-7.450); PLATELET COUNT,PLT 412 K/uL (130-375); PO2 VENOUS 53.5 mm/Hg; RED BLOOD CELL COUNT 4.48 M/uL (3.77-5.24); WHITE BLOOD CELL COUNT,WBC 9.5 K/uL (3.2-11.0)
[2023-02-12 03:08] LABS: EOSINOPHILS ABSOLUTE AUTO 0.02 K/uL (0.00-0.40)
[2023-02-12 03:30] LABS: A/G RATIO 0.9 (1.2-2.2); ALANINE AMINOTRANSFERASE,ALT 63 U/L (12-78); ALBUMIN 3.6 g/dL (3.4-5.0); ALKALINE PHOSPHATASE 103 U/L (46-116); ASPARTATE AMNIOTRANSFERASE,AST 40 U/L (15-37); BILIRUBIN TOTAL 0.2 mg/dL (0.2-1.0); BLOOD UREA NITROGEN,BUN 8 mg/dL (7-18); CALCIUM 9.1 mg/dL (8.5-10.1); CARBON DIOXIDE,CO2 26 mmol/L (21-32); CHLORIDE,CL 101 mmol/L (100-108); CREATININE 1.9 mg/dL (0.6-1.0); ESTIMATED GFR 34 mL/min (>60); GLUCOSE RANDOM 107 mg/dL (74-106); POTASSIUM,K 3.5 mmol/L (3.6-5.2); PROTEIN TOTAL,TP 7.7 g/dL (6.4-8.2); SODIUM,NA 139 mmol/L (140-148)
[2023-02-12 03:32] LABS: ANION GAP 15.5 mmol/L (5.0-14.0)
[2023-02-12] MEDS ORDERED: Sodium Chloride 0.9% 1,000 ML IV SCH (12:00)
[2023-02-12 12:03] LABS: APPEARANCE,URINE CLEAR (CLEAR); BILIRUBIN,URINE NEGATIVE (NEGATIVE); COLOR,URINE YELLOW (YELLOW); GLUCOSE,URINE NEGATIVE (NEGATIVE); KETONES,URINE NEGATIVE (NEGATIVE); LEUKOCYTE ESTERASE,URINE NEGATIVE (NEGATIVE); NITRITE,URINE NEGATIVE (NEGATIVE); OCCULT BLOOD,URINE TRACE-INTACT (NEGATIVE); PROTEIN,URINE NEGATIVE (NEGATIVE); UROBILINOGEN,URINE 0.2 EU/dL (0.2-1.0)
[2023-02-12 12:25] LABS: AMORPHOUS SEDIMENT,URINE NOT SEEN; BACTERIA,URINE FEW; EPITHELIAL CELLS,URINE MODERATE; MUCUS,URINE FEW; RBC,URINE 0-5 (0-5); WBC,URINE 0-5 (0-5)
[2023-02-12 12:26] LABS: AMPHETAMINES SCREEN, URINE NEGATIVE (NEGATIVE); BARBITURATE SCREEN,URINE PRESUMPTIVE POSITIVE (NEGATIVE); BENZODIAZEPINES SCREEN,URINE PRESUMPTIVE POSITIVE (NEGATIVE); METHADONE SCREEN, URINE NEGATIVE (NEGATIVE); METHAMPHETAMINES SCREEN, URINE NEGATIVE (NEGATIVE); OXYCODONE SCREEN,URINE NEGATIVE (NEGATIVE); PROPOXYPHENE SCREEN,URINE NEGATIVE (NEGATIVE); THC SCREEN,URINE 50 NG/ML PRESUMPTIVE POSITIVE (NEGATIVE)
[2023-02-12] MEDS ORDERED: SUMAtriptan 50 MG Tab PO ONE (12:52)
[2023-02-12 15:17] LABS: CALCIUM 8.7 mg/dL (8.5-10.1); CREATININE 1.6 mg/dL (0.6-1.0); EST CRCL DRUG DOSING (CG) 47.15 mL/min; POTASSIUM,K 5.2 mmol/L (3.6-5.2)
[2023-02-12 15:18] LABS: ANION GAP 14.2 mmol/L (5.0-14.0)
[2023-02-12] MEDS ORDERED: LORazepam 2 MG/ML SDV IVPUSH ONE ×2 (15:44→18:41)
== END 2023-02-12 19:55 | disposition left against medical advice (07) ==
LOC: JP.ED 02:40
DX: T42.6X1A Poisoning by other antiepileptic and sedative-hypnotic drugs, accidental (unintentional), initial encounter (principal); T51.2X4A Toxic effect of 2-Propanol, undetermined, initial encounter; Z88.8 Allergy status to other drugs, medicaments and biological substances; Z79.899 Other long term (current) drug therapy; E05.90 Thyrotoxicosis, unspecified without thyrotoxic crisis or storm; Z86.16 Personal history of COVID-19; Z20.822 Contact with and (suspected) exposure to COVID-19
CPT/HCPCS: 36415; 80048; 80053; 80143; 80179; 80305; 80307; 81001; 82803; 83690; 85025; 87635; 93005; 96361; 96374; 99284; A9270; J2060; J7030; 93010; U0002

== ENCOUNTER 2024-12-14 07:45 | Day surgery (SDC) | payer BC ==
[2024-12-14] MEDS ORDERED: ceFAZolin 2 GM in Sodium Chloride 0.9% 100 ML IV ONE (08:00)
[2024-12-14 08:07] LABS: HEMOGLOBIN 13.4 g/dL (11.2-15.5); MEAN CORPUSCULAR HEMOGLOBIN 28.8 pg (31.6-35.5); MEAN CORPUSCULAR HGB CONC 33.5 g/dL (31.6-35.5); RED BLOOD CELL COUNT 4.65 M/uL (3.77-5.24); WHITE BLOOD CELL COUNT,WBC 6.5 K/uL (3.2-11.0)
[2024-12-14] MEDS ORDERED: fentaNYL 250 MCG/5 ML SDV ONE (08:08)
[2024-12-14] MEDS ORDERED: Glycopyrrolate 0.2 MG/ML 5 ML MDV ONE (08:09)
[2024-12-14] MEDS ORDERED: Succinylcholine 200 MG/10 ML MDV ONE (08:09)
[2024-12-14] MEDS ORDERED: Ondansetron 4 MG/2 ML SDV ONE (08:09)
[2024-12-14] MEDS ORDERED: Rocuronium 50 MG/5 ML Vial ONE (08:09)
[2024-12-14] MEDS ORDERED: Neostigmine Methylsulfate 10 MG/10 ML MDV ONE (08:09)
[2024-12-14] MEDS ORDERED: Dexamethasone 4 MG/ML SDV ONE (08:09)
[2024-12-14] MEDS ORDERED: Propofol 200 MG/20 ML SDV ONE (08:09)
[2024-12-14] MEDS: Lactated Ringers 1,000 ML IV SCH (08:13)
[2024-12-14] MEDS: Nozin Nasal Sanitizer NASBOTH ONE (08:14)
[2024-12-14 08:23] LABS: CALCIUM 9.2 mg/dL (8.5-10.1); CREATININE 0.8 mg/dL (0.6-1.0); EST CRCL DRUG DOSING (CG) 93.25 mL/min; POTASSIUM,K 3.7 mmol/L (3.6-5.2)
[2024-12-14 08:24] LABS: ANION GAP 9.7 mmol/L (5.0-14.0)
[2024-12-14] MEDS: ceFAZolin 2 GM in Premix Bag 1 BAG IV ONE (08:49)
[2024-12-14] MEDS ORDERED: Midazolam 1 MG/ML 2 ML SDV ONE (08:51)
[2024-12-14] MEDS: Bupivacaine 0.5% 30 ML SDV ONE (09:30)
[2024-12-14] MEDS ORDERED: Naloxone 0.4 MG/ML SDV IVPUSH PRN (11:14)
[2024-12-14] MEDS: Morphine 2 MG/ML SYRINGE IVPUSH ONE ×2 (11:20→13:10)
[2024-12-14] MEDS: Acetaminophen/oxyCODONE 325-5 MG Tab PO PRN (11:46)
[2024-12-14] MEDS ORDERED: Ketorolac 30 MG/ML SDV ONE (12:04)
[2024-12-14] MEDS ORDERED: fentaNYL 100 MCG/2 ML SDV ONE (12:16)
[2024-12-14] MEDS: HYDROmorphone 2 MG Tab PO PRN (12:28)
[2024-12-14] MEDS ORDERED: oxyCODONE 5 MG Tab PO ONE (13:00)
== END 2024-12-14 14:05 | disposition home or self-care (01) ==
LOC: JP.SDS 07:45 → EEVIPCON 08:30 → JP.SDS 14:05
PROVIDERS: ATTEND Specialist
DX: S42.021K Displaced fracture of shaft of right clavicle, subsequent encounter for fracture with nonunion (principal); I10 Essential (primary) hypertension; K21.9 Gastro-esophageal reflux disease without esophagitis; E03.9 Hypothyroidism, unspecified; F33.1 Major depressive disorder, recurrent, moderate; Z79.899 Other long term (current) drug therapy; Z88.8 Allergy status to other drugs, medicaments and biological substances; Z91.048 Other nonmedicinal substance allergy status; X58.XXXA Exposure to other specified factors, initial encounter
CPT/HCPCS: 23515; 36415; 80048; 84703; 85027; A9270; C1713; C1776; J0330; J0665; J0690; J1100; J1596; J1885; J2250; J2270; J2405; J2704; J2710; J3010; J7120; 00450-QZ; J3490